=== PATIENT | male | born 1950 | race Caucasian/White ===

== ENCOUNTER 2016-12-03 08:55 | Outpatient (RCR) | payer OTHER ==
[~2016-12-03 08:55] MED LIST: AMLO5TAB2 PO; ASP81TEC PO; ASPI-266 PO; ATOR80TA PO; CETI10TA57 PO; CIPR500T78 PO; CLOP75TA PO; CLPD75T PO; HYOS0.1216 PO; LOSA25TA5 PO; Losartan Potassium PO; MULT-974 PO; PHEN200T27 PO; RAMI2.5C PO; RMP2.5C PO
== END 2017-01-14 10:02 | disposition home or self-care (01) ==
LOC: ONC 08:55
PROVIDERS: ATTEND Radiology Radiation Oncology
DX: C61 Malignant neoplasm of prostate (principal)
CPT/HCPCS: 99214

== ENCOUNTER 2017-02-06 15:53 | Emergency (ER) | payer BC ==
[~2017-02-06] VITALS: Ht 172.7 cm; Wt 81.6 kg
[2017-02-06] MEDS ORDERED: LIDOCAINE 2% VISCOUS 15 ML UDC PO ONE (16:15)
--- NOTE | 2017-02-06 16:15 | ED EENT ---
History of Present Illness General Chief Complaint: Dental Problems/Pain Stated Complaint: DENTAL PAIN History of Present Illness Time seen by provider: 16:08 Initial Comments Patient presents to ER with several days of right lower jaw pain from a tooth that he felt chip the filling off earlier. He has an appointment with his dentist on the but he needs to get one sooner. He is restarted some left over clindamycin he had for the same problem and is on the third dose. He has been using topical Orajel which helped a little as well as Tylenol and Ultram. He has not used any NSAIDs. He did use ice and that helped some as well. There is no bleeding, fever, chills, nausea, diarrhea, malaise. He is currently receiving radiation therapy for prostate cancer and being worked up for mild chronic kidney disease. Allergies and Home Medications Allergies Coded Allergies: Penicillins (Verified Adverse Reaction, Mild, ORAL THRUSH, 01/17/15) Oral thrush Uncoded Allergies: KNA (Allergy, Unknown, 01/17/15) Home Medications Aspirin 81 Mg Tablet.dr, 81 MG PO DAILY, (Reported) Atorvastatin Calcium 80 Mg Tablet, 80 MG PO HS for 30 Days Prescribed by: MERISSA YODER on 05/28/14 1137 Cetirizine Hcl 10 Mg Tablet, 10 MG PO DAILY, (Reported) Clindamycin HCl 150 Mg Capsule, 150 MG PO QID for 6 Days, #24 Ref 0 Prescribed by: SHAKILA RUFFIN on 02/06/17 1623 Clopidogrel Bisulfate 75 Mg Tablet, 75 MG PO DAILY, (Reported) Hydrocodone/Acetaminophen 1 Each Tablet, 1 EACH PO Q4H PRN for PAIN, #14 Ref 0 Prescribed by: SHAKILA RUFFIN on 02/06/17 1623 Multivitamin 1 Each Tablet, 1 EACH PO DAILY, (Reported) [Losartan Potassium] 25 MG TAB, 50 MG PO DAILY Prescribed by: ENRIQUE VERDUGO on 01/19/15 1926 Review of Systems Constitutional: No chills, No fever Eyes: Denies Blurred Vision, Denies Drainage Ears: Denies Pain, Denies Tinnitus Nose: denies congestion, denies epistaxis, denies pain Mouth: see HPI, denies loose teeth, pain, swelling, denies bloody discharge, denies clear discharge, denies purulent discharge, denies previous injury Throat: denies swelling, hoarse Respiratory: No cough, No wheezing Cardiovascular: No chest pain, No syncope Gastrointestinal: No abdominal pain, No constipation Skin: No pruritus, No rash Past Dmps[place]uk-Djrhpc-Hbsreo Hx Patient Social History Alcohol Use: Denies Use Recreational Drug Use: No Recent Foreign Travel: No Contact w/Someone Who Travel: No Immunizations Up To Date Tetanus Booster (TDap): More than 5yrs PED Vaccines UTD: No Surgeries HX Surgeries: Yes (HEART CATH, LEFT KNEE SURGERY, PENILE IMPLANT, LEFT SHOULDER SURGERY, ) Respiratory Hx Respiratory Disorders: No Cardiovascular Hx Cardiac Disorders: Yes Neurological Hx Neurological Disorders: No Reproductive System Hx Reproductive Disorders: No Sexually Transmitted Disease: No HIV/AIDS: No Genitourinary Hx Genitourinary Disorders: Yes (BLADDER TUMOR) Gastrointestinal Hx Gastrointestinal Disorders: No Musculoskeletal Hx Musculoskeletal Disorders: No Endocrine Hx Endocrine Disorders: No HEENT HX ENT Disorders: No Cancer Hx Cancer: No Cancer: Bladder Psychosocial Hx Psychiatric Problems: No Integumentary HX Skin/Integumentary Disorder: No Blood Transfusions Hx Blood Disorders: No Adverse Reaction to a Blood Tr: No Family Medical History Family Medial History: Family history: Cardiovascular disease 19 FATHER, Onset:Unknown Family history: Coronary thrombosis 19 FATHER, Onset:Unknown History of - respiratory disease 19 MOTHER, Onset:Unknown G8 SISTER, Onset:Unknown No Family History of: Abdominal aortic aneurysm Rogerio's disease Alcoholism Aphasia Cancer Cancer of colon Cataract Chest pain Congenital heart disease Congestive heart failure Cystic fibrosis Dementia Dysphagia Family history: Allergy Family history: Alzheimer's disease Family history: Arthritis Family history: Asthma Family history: Breast disease Family history: Diabetes mellitus Family history: Gastrointestinal disease Family history: Glaucoma Family history: Hypertension Family history: Osteoporosis Family history: Thyroid disorder Headache Hearing loss Heart disease Hereditary disease History of - anemia History of - disorder History of drug abuse Human immunodeficiency virus (HIV) seropositivity Hypercholesterolemia Infertile Kidney disease Malignant neoplasm of lung Myocardial infarction Parkinson's disease Prostate cancer Psychotic disorder Seizure disorder Stroke Tuberculosis Visual impairment Physical Exam Vital Signs Vital Sign - Last 12Hours 02/06/17 15:55 Temp 99.7 Pulse 62 Resp 24 B/P (MAP) 171/72 General Appearance: WD/WN, no apparent distress Eyes: bilateral eye EOMI, bilateral eye normal inspection Ears: bilateral ear TM normal, bilateral ear auricle normal, bilateral ear canal normal Nose: normal inspection, No sinus tenderness Mouth/Throat: dental tenderness (Right lower mandible), No excessive drooling, No foreign body, No maxillary swelling, No uvula swelling, No voice changes Neck: non-tender, full range of motion, supple, normal inspection Cardiovascular: normal peripheral pulses, regular rate, rhythm Respiratory: chest non-tender, lungs clear Gastrointestinal: normal bowel sounds, soft Neurologic/Psychiatric: kinesiology internship II-XII nml as tested, alert, oriented x 3 Skin: normal color, warm/dry Progress/Results/Core Measures Results/Orders My Orders Orders - SHAKILA RUFFIN Lidocaine 2% Viscous 15 Ml (Xylocaine Vi (02/06/17 16:15) Medications Given in ED Current Medications Medications Dose Ordered Sig/Markus Route Start Time Stop Time Status Last Admin Dose Admin Lidocaine HCl 5 ml ONCE ONCE PO 02/06/17 16:15 02/06/17 16:17 DC 02/06/17 16:22 5 ML Vital Signs/I&O Vital Sign - Last 12Hours 02/06/17 15:55 Temp 99.7 Pulse 62 Resp 24 B/P (MAP) 171/72 Progress Note : Time: 16:30 Progress Note The patient is already initiated clindamycin penicillin allergy this is probably appropriate so we will obtain another 6 days on top of a one-day he's done. Viscous lidocaine was applied which helped immensely with his pain as well as us short course of opiates were sent out. Discussed using ice and NSAIDs as well. He intends to get a sooner appointment with his dentist when he can. Departure Impression Impression: Primary Impression: Pain, dental Disposition: 01 HOME, SELF-CARE Condition: Improved Departure-Patient Inst. Decision time for Depature: 16:18 Referrals: CONSTANTINE YOUNG MD (PCP/Family) Primary Care Physician Patient Instructions: Fractured Tooth (DC) Add. Discharge Instructions: You're having dental pain from a cracked filling. He should make an attempt to get in with a dentist as soon as possible. He'll come every with clindamycin to be taken four times daily by mouth. While on the antibiotic you should also be on either probiotics or take Iranian yogurt with active culture twice daily. Use NSAIDs such as Advil or Aleve as necessary as well as ice packs. If you have bleeding you can apply a tea bag. Use the viscous lidocaine soaked cotton gauze to apply directly to the tooth that hurts as necessary. If you have fever nausea rash or other new symptoms or worsening pain you may return to the ER or go to your dentist or primary care physician as necessary. All discharge instructions reviewed with patient and/or family. Voiced understanding. Scripts Clindamycin HCl (Clindamycin HCl) 150 Mg Capsule 150 MG PO QID for 6 Days, #24 CAP 0 Refills Prov: SHAKILA RUFFIN 02/06/17 Hydrocodone/Acetaminophen (Hydrocodon -Acetaminophen 5-325) 1 Each Tablet 1 EACH PO Q4H Y for PAIN, #14 TAB 0 Refills Prov: SHAKILA RUFFIN 02/06/17 Copy Copies To 1: CONSTANTINE YOUNG MD, TITUS J Feb 06, 2017 16:15
[2017-02-06] MEDS ORDERED: HYDR-3812 PO (16:23)
[2017-02-06] MEDS ORDERED: CLIN150C17 PO ×2 (16:23→16:32)
[2017-02-06 16:31] VITALS: BP 171/72
--- OUTSIDE RECORDS SUMMARY | 2017-03-13 06:01 | XMS REPORT ---
Author Author CONSTANTINE YOUNG [facility] Address [address] [place] [address] Care Team Providers Care Wildland Fire Operations Specialist Name Role Phone CONSTANTINE YOUNG Unavailable PROBLEMS Type Condition ICD9-CM Code [id number] Code Onset Dates Condition Status SNOMED Code Problem Chronic kidney disease, unspecified stage N18.9 Active 954554979 Problem Polyneuropathy associated with underlying disease G63 Active 220391303 Problem Hypertension I10 Active 26589888 Problem Hyperlipidemia, unspecified hyperlipidemia type E78.5 Active 25317164 Problem Back pain M54.9 Active 231172702 ALLERGIES Unknown Allergies SOCIAL HISTORY No smoking Hx information available PLAN OF CARE VITAL SIGNS MEDICATIONS Unknown Medications RESULTS No Results PROCEDURES No Known procedures IMMUNIZATIONS No Known Immunizations
--- OUTSIDE RECORDS SUMMARY | 2017-03-13 06:01 | XMS REPORT ---
Author Author CONSTANTINE YOUNG [facility] [employer] Address Unknown Phone Unavailable Care Team Providers Care Basket Bottom Machine Operator Name Role Phone CONSTANTINE YOUNG CP Unavailable Allergies No Known Allergies Problems Problem Type Condition Code Onset Dates Condition Status Problem Hyperlipidemia, unspecified hyperlipidemia type E78.5 Active Problem Back pain M54.9 Active Problem Polyneuropathy associated with underlying disease G63 Active Problem Hypertension I10 Active Medications Medication Code System Code Instructions Start Date End Date Status Dosage Zetia [facility] [address]-72 10 mg Orally Once a day Jun 21, 2016 1 tablet Results No Known Results Summary Purpose eClinicalWorks Submission
--- OUTSIDE RECORDS SUMMARY | 2017-03-13 06:01 | XMS REPORT ---
Author Author CONSTANTINE YOUNG [facility] Address [address] [place] [address] Care Team Providers Care Ornamental Painter Name Role Phone CONSTANTINE YOUNG Unavailable PROBLEMS Type Condition ICD9-CM Code [id number] Code Onset Dates Condition Status SNOMED Code Problem Chronic kidney disease, unspecified stage N18.9 Active 614377170 Problem Polyneuropathy associated with underlying disease G63 Active 944785930 Problem Hypertension I10 Active 70625614 Problem Hyperlipidemia, unspecified hyperlipidemia type E78.5 Active 19783205 Problem Back pain M54.9 Active 898540572 ALLERGIES Unknown Allergies SOCIAL HISTORY No smoking Hx information available PLAN OF CARE VITAL SIGNS MEDICATIONS Medication Instructions Dosage Frequency Start Date End Date Duration Status Clopidogrel Bisulfate 75 MG Orally Once a day 1 tablet 24h 6 days Active Gabapentin 300 MG Orally 2 times a day 1 capsule 12h 6 days Active Valsartan-Hydrochlorothiazide 160-12.5 MG Orally Once a day 1 tablet 24h 6 days Active RESULTS No Results PROCEDURES No Known procedures IMMUNIZATIONS No Known Immunizations
--- OUTSIDE RECORDS SUMMARY | 2017-03-13 06:02 | XMS REPORT ---
Author Author CONSTANTINE YOUNG [facility] Address [address] [place] [address] Care Team Providers Care Data Center Manager Name Role Phone CONSTANTINE YOUNG Unavailable PROBLEMS Type Condition ICD9-CM Code SYN94-LM Code Onset Dates Condition Status SNOMED Code Problem Chronic kidney disease, unspecified stage N18.9 Active 375729016 Problem Polyneuropathy associated with underlying disease G63 Active 423442756 Problem Hypertension I10 Active 19870585 Problem Hyperlipidemia, unspecified hyperlipidemia type E78.5 Active 33386366 Problem Back pain M54.9 Active 548040885 ALLERGIES Unknown Allergies SOCIAL HISTORY No smoking Hx information available PLAN OF CARE VITAL SIGNS MEDICATIONS Unknown Medications RESULTS No Results PROCEDURES No Known procedures IMMUNIZATIONS No Known Immunizations
--- OUTSIDE RECORDS SUMMARY | 2017-03-13 06:02 | XMS REPORT ---
Author Author CONSTANTINE YOUNG [facility] Address [address] [place] [address] Care Team Providers Care Veterinary Poultry Inspector Name Role Phone CONSTANTINE YOUNG Unavailable PROBLEMS Type Condition ICD9-CM Code [id number] Code Onset Dates Condition Status SNOMED Code Problem Chronic kidney disease, unspecified stage N18.9 Active 216668893 Problem Polyneuropathy associated with underlying disease G63 Active 874419426 Problem Hypertension I10 Active 72466589 Problem Hyperlipidemia, unspecified hyperlipidemia type E78.5 Active 93288928 Problem Back pain M54.9 Active 195872771 ALLERGIES Unknown Allergies SOCIAL HISTORY No smoking Hx information available PLAN OF CARE VITAL SIGNS MEDICATIONS Unknown Medications RESULTS No Results PROCEDURES No Known procedures IMMUNIZATIONS No Known Immunizations
--- OUTSIDE RECORDS SUMMARY | 2017-03-13 06:02 | XMS REPORT ---
Author Author CONSTANTINE YOUNG [facility] Address [address] [place] [address] Care Team Providers Care Stiff Leg Derrick Operator Name Role Phone CONSTANTINE YOUNG Unavailable PROBLEMS Type Condition ICD9-CM Code [id number] Code Onset Dates Condition Status SNOMED Code Problem Chronic kidney disease, unspecified stage N18.9 Active 277653475 Problem Polyneuropathy associated with underlying disease G63 Active 086788274 Problem Hypertension I10 Active 32748635 Assessment Chronic kidney disease, unspecified stage N18.9 Jul, Active 685493167 Problem Hyperlipidemia, unspecified hyperlipidemia type E78.5 Active 13799730 Problem Back pain M54.9 Active 283394616 ALLERGIES Unknown Allergies SOCIAL HISTORY No smoking Hx information available PLAN OF CARE VITAL SIGNS MEDICATIONS Unknown Medications RESULTS No Results PROCEDURES No Known procedures IMMUNIZATIONS No Known Immunizations
--- OUTSIDE RECORDS SUMMARY | 2017-03-13 06:02 | XMS REPORT ---
Author Author CONSTANTINE YOUNG [facility] e[employer] Address Unknown Phone Unavailable Care Team Providers Care Procurement Director Name Role Phone CONSTANTINE YOUNG CP Unavailable Allergies, Adverse Reactions, Alerts Substance Reaction Event Type Penicillin V Potassium hives Drug Allergy Problems Problem Type Condition Code Onset Dates Condition Status Problem Hyperlipidemia, unspecified hyperlipidemia type E78.5 Active Problem Back pain M54.9 Active Problem Polyneuropathy associated with underlying disease G63 Active Assessment Polyneuropathy associated with underlying disease G63 Active Assessment Hyperlipidemia, unspecified hyperlipidemia type E78.5 Active Problem Hypertension I10 Active Assessment Back pain M54.9 Active Medications Medication Code System Code Instructions Start Date End Date Status Dosage Valsartan-Hydrochlorothiazide [facility] 72064598348 160-12.5 MG Orally Once a day 1 tablet Tramadol HCl [facility] [address]-47 50 mg Orally every 6 hrs, prn pain Jun 15, 2016 1-2 Vitamin D-3 [facility] [address]-58 [address] Orally not defined Aspirin Adult Low Dose [facility] [address]-54 81 MG Orally Once a day 1 tablet Probiotic [facility] [address] Orally not defined Clopidogrel Bisulfate [facility] [address]-75 75 MG Orally Once a day 1 tablet Gabapentin [facility] [address]-18 300 MG Orally 2 times a day 1 capsule Procedures Procedure Coding System Code Date COMPREHEN METABOLIC PANEL CPT-4 06351 Jun 15, 2016 VENIPUNCT, ROUTINE* CPT-4 38260 Jun 15, 2016 LIPID PANEL CPT-4 41694 Jun 15, 2016 Office Visit, Est Pt., Level 3 CPT-4 00459 Jun 15, 2016 Vital Signs Date/Time: Jun 15, 2016 Cardiac Monitoring Heart Rate 64 bpm Weight 189.2 lbs Height 68 in BMI 28.76 Index Blood Pressure Diastolic 76 mmHg Blood Pressure Systolic 132 mmHg Results No Known Results Summary Purpose eClinicalWorks Submission
--- OUTSIDE RECORDS SUMMARY | 2017-03-13 06:02 | XMS REPORT ---
Author CALEB Moura [facility] eClinical[employer] Address Unknown Phone Unavailable Care Team Providers Care Tumbler Tender Name Role Phone CALEB HAINES CP Unavailable Allergies, Adverse Reactions, Alerts Substance Reaction Event Type Penicillin V Potassium hives Drug Allergy Problems Problem Type Condition Code Onset Dates Condition Status Problem Polyneuropathy associated with underlying disease G63 Active Problem Hyperlipidemia, unspecified hyperlipidemia type E78.5 Active Problem Chronic kidney disease, unspecified stage N18.9 Active Assessment Dental examination Z01.20 Active Problem Back pain M54.9 Active Problem Hypertension I10 Active Medications No Known Medications Procedures Procedure Coding System Code Date BITEWINGS - FOUR FILMS CPT-4 D0274 Jul 26, 2016 PANORAMIC FILM SEE ALSO CODE 29448 CPT-4 D0330 Jul 26, 2016 COMP ORAL EVALUATION - NEW/EST PT CPT-4 D0150 Jul 26, 2016 Vital Signs Date/Time: Jul 26, 2016 Blood Pressure Diastolic 82 mmHg Blood Pressure Systolic 147 mmHg Height 68 in Results No Known Results Summary Purpose eClinicalWorks Submission
--- OUTSIDE RECORDS SUMMARY | 2017-03-13 06:02 | XMS REPORT ---
Author Author CONSTANTINE YOUNG [facility] eClinicalWorks Address Unknown Phone Unavailable Care Team Providers Care Labor Commissioner Name Role Phone CONSTANTINE YOUNG CP Unavailable Allergies No Known Allergies Problems Problem Type Condition Code Onset Dates Condition Status Problem Hyperlipidemia, unspecified hyperlipidemia type E78.5 Active Problem Back pain M54.9 Active Problem Polyneuropathy associated with underlying disease G63 Active Problem Hypertension I10 Active Medications Medication Code System Code Instructions Start Date End Date Status Dosage Gabapentin [facility] [address]-01 300 MG Orally 2 times a day 1 capsule Results No Known Results Summary Purpose eClinicalWorks Submission
--- OUTSIDE RECORDS SUMMARY | 2017-03-13 06:02 | XMS REPORT | Continuity of Care Document ---
Author Author [facility] Organization [facility] Address Unknown Phone Unavailable Allergies Active Description Code Type Severity Reaction Onset Reported/Identified Relationship to Patient Clinical Status Yes Penicillins [id number] Drug Allergy Mild N/A 05/24/2014 Yes Penicillins [id number] Drug Allergy Mild ORAL THRUSH 01/17/2015 Yes KNA KNA Unknown N/A 01/17/2015 Medications Problems Date Dx Coded Attending Type Code Diagnosis Diagnosed By 09/29/1001 JAMAL PARMAR, JING Treadwell Ot C61 MALIGNANT NEOPLASM OF PROSTATE 05/28/2014 Estelita FERNANDO MD Ot 272.4 HYPERLIPIDEMIA NEC/NOS 05/28/2014 Estelita FERNANDO MD Ot 305.1 TOBACCO USE DISORDER 05/28/2014 Estelita FERNANDO MD Ot 401.9 HYPERTENSION NOS 05/28/2014 Estelita FERNANDO MD Ot 411.1 INTERMED CORONARY SYND 05/28/2014 Estelita FERNANDO MD Ot 414.01 CORONARY ATHEROSCLEROSIS OF CHEESH-NA CORON 05/28/2014 Estelita FERNANDO MD Ot 427.89 CARDIAC DYSRHYTHMIAS NEC 05/28/2014 Estelita FERNANDO MD Ot 440.1 RENAL ARTERY ATHEROSCLER 05/28/2014 Estelita FERNANDO MD Ot 440.21 ATHEROSCL CHEESH-NA ARTER EXTREM W INTERMIT 05/28/2014 Estelita FERNANDO MD Ot 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 05/28/2014 Estelita FERNANDO MD Ot 596.9 BLADDER DISORDER NOS 05/28/2014 Estelita FERNANDO MD Ot 789.06 ABDOMINAL PAIN, EPIGASTRIC 07/03/2014 LUZ HUMPHRIES MD Ot 239.4 BLADDER NEOPLASM NOS 07/03/2014 LUZ HUMPHRIES MD Ot V74.8 SCREEN-BACTERIAL DIS NEC 09/17/2014 LUZ HUMPHRIES MD Ot 239.4 09/17/2014 LUZ HUMPHRIES MD Ot V72.84 01/19/2015 ENRIQUE VERDUGO MD Ot 272.4 01/19/2015 ENRIQUE VERDUGO MD Ot 305.1 01/19/2015 ENRIQUE VERDUGO MD Ot 401.9 01/19/2015 ENRIQUE VERDUGO MD Ot 444.81 01/19/2015 ENRIQUE VERDUGO MD Ot 780.57 01/19/2015 ENRIQUE VERDUGO MD Ot 272.1 PURE HYPERGLYCERIDEMIA 01/19/2015 ENRIQUE VERDUGO MD Ot 272.4 HYPERLIPIDEMIA NEC/NOS 01/19/2015 ENRIQUE VERDUGO MD Ot 288.09 OTHER NEUTROPENIA 01/19/2015 ENRIQUE VERDUGO MD Ot 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 01/19/2015 ENRIQUE VERDUGO MD Ot 305.1 TOBACCO USE DISORDER 01/19/2015 ENRIQUE VERDUGO MD Ot 401.9 01/19/2015 ENRIQUE VERDUGO MD Ot 403.90 HYPTNSV CHR KID DIS, UNSPEC, W CHR KD ST 01/19/2015 ENRIQUE VERDUGO MD Ot 443.9 PERIPH VASCULAR DIS NOS 01/19/2015 ENRIQUE VERDUGO MD Ot 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 01/19/2015 ENRIQUE VERDUGO MD Ot 530.81 ESOPHAGEAL REFLUX 01/19/2015 ENRIQUE VERDUGO MD Ot 535.50 UNSP GASTRITIS GASTRODUODENITIS W/O ME 01/19/2015 ENRIQUE VERDUGO MD Ot 585.9 CHRONIC KIDNEY DISEASE, UNSPECIFIED 01/19/2015 ENRIQUE VERDUGO MD Ot 724.5 BACKACHE NOS 01/19/2015 ENRIQUE VERDUGO MD Ot 780.57 UNSPECIFIED SLEEP APNEA 02/27/2015 ENRIQUE VERDUGO MD Ot 327.23 OBSTRUCTIVE SLEEP APNEA (ADULT) ( PEDIATR 04/30/2015 LUZ HUMPHRIES MD Ot 239.4 04/30/2015 LUZ HUMPHRIES MD Ot V72.84 05/27/2015 LUZ HUMPHRIES MD Ot 239.4 05/27/2015 KRISTEL PARMAR, LUZ A Ot V72.84 08/26/2015 KRISTEL PARMAR, LUZ A Ot 239.4 08/26/2015 KRISTEL PARMAR, LUZ A Ot V72.84 09/12/2015 KRISTEL PARMAR, LUZ A Ot 239.4 09/12/2015 KRISTEL PARMAR, LUZ Murcia Ot V72.84 09/30/2015 TONE PARMAR FACC, ALI FACP CCDS Ot E78.4 09/30/2015 TONE PARMAR FACC, ALI FACP CCDS Ot G47.33 09/30/2015 TONE PARMAR FACC, ALI FACP CCDS Ot I70.1 09/30/2015 TONE PARMAR FACC, ALI FACP CCDS Ot I70.213 09/30/2015 TONE PARMAR FACC, ALI FACP CCDS Ot R06.09 09/30/2015 TONE PARMAR FACC, ALI FACP CCDS Ot Z72.0 09/30/2015 KRISTEL PARMAR, LUZ Murcia Ot 239.4 09/30/2015 KRISTEL PARMAR, LUZ Murcia Ot V72.84 09/30/2015 TONE PARMAR FACC, ALI FACP CCDS Ot E78.4 09/30/2015 TONE PARMAR FACC, ALI FACP CCDS Ot G47.33 09/30/2015 TONE PARMAR FACC, ALI FACP CCDS Ot I70.1 09/30/2015 TONE PARMAR FACC, ALI FACP CCDS Ot I70.213 09/30/2015 TONE PARMAR FACC, ALI FACP CCDS Ot R06.09 09/30/2015 TONE PARMAR FACC, ALI FACP CCDS Ot Z72.0 10/30/2015 TONE PARMAR FACC, ALI FACP CCDS Ot E78.4 10/30/2015 TONE PARMAR FACC, ALI FACP CCDS Ot G47.33 10/30/2015 TONE PARMAR FACC, ALI FACP CCDS Ot I70.1 10/30/2015 TONE PARMAR FACC, ALI FACP CCDS Ot I70.213 10/30/2015 TONE PARMAR FACC, ALI FACP CCDS Ot R06.09 10/30/2015 TONE PARMAR FACC, ALI FACP CCDS Ot Z72.0 08/16/2016 JENNY PARMAR, GUSTAVO S Ot E87.2 ACIDOSIS 08/16/2016 JENNY PARMAR, JOSEMED S Ot I12.9 HYPERTENSIVE CHRONIC KIDNEY DISEASE W ST 08/16/2016 JENNY PARMAR, JOSEMED S Ot N18.3 CHRONIC KIDNEY DISEASE, STAGE 3 ( MODERAT 10/15/2016 JENNY PARMAR, GUSTAVO S Ot E87.2 ACIDOSIS 10/15/2016 JENNY PARMAR, GUSTAVO S Ot I12.9 HYPERTENSIVE CHRONIC KIDNEY DISEASE W ST 10/15/2016 JENNY PARMAR, JOSEMED S Ot N18.3 CHRONIC KIDNEY DISEASE, STAGE 3 ( MODERAT 10/15/2016 KRISTEL PARMAR, LUZ Murcia Ot 239.4 BLADDER NEOPLASM NOS 10/15/2016 KRISTEL PARMAR, LUZ Murcia Ot V72.84 EXAM PRE-OPERATIVE NOS 10/15/2016 TONE PARMAR FACC, ALI FACP CCDS Ot E78.4 OTHER HYPERLIPIDEMIA 10/15/2016 TONE PARMAR FACC, ALI FACP CCDS Ot G47.33 OBSTRUCTIVE SLEEP APNEA (ADULT) (PEDIATR 10/15/2016 TONE PARMAR FACC, ALI FACP CCDS Ot I70.1 ATHEROSCLEROSIS OF RENAL ARTERY 10/15/2016 TONE PARMAR FACC, ALI FACP CCDS Ot I70.213 ATHSCL CHEESH-NA ARTERIES OF EXTRM W INTRMT 10/15/2016 TONE PARMAR FACC, ALI FACP CCDS Ot R06.09 OTHER FORMS OF DYSPNEA 10/15/2016 TONE PARMAR FACC, ALI FACP CCDS Ot Z72.0 TOBACCO USE 10/15/2016 GUSTAVO ALVARADO MD S Ot E87.2 ACIDOSIS 10/15/2016 JENNY PARMAR, GUSTAVO S Ot I12.9 HYPERTENSIVE CHRONIC KIDNEY DISEASE W ST 10/15/2016 JENNY PARMAR, GUSTAVO S Ot N18.3 CHRONIC KIDNEY DISEASE, STAGE 3 ( MODERAT 10/27/2016 KRISTEL PARMAR, LUZ Murcia Ot C61 MALIGNANT NEOPLASM OF PROSTATE 10/27/2016 LUZ HUMPHRIES MD Ot C61 MALIGNANT NEOPLASM OF PROSTATE 11/16/2016 LUZ HUMPHRIES MD Ot C61 MALIGNANT NEOPLASM OF PROSTATE 12/03/2016 LUZ HUMPHRIES MD Ot 239.4 BLADDER NEOPLASM NOS 12/03/2016 LUZ HUMPHRIES MD Ot V72.84 EXAM PRE-OPERATIVE NOS 12/03/2016 TONE PARMAR FACC, ALI FACP CCDS Ot E78.4 OTHER HYPERLIPIDEMIA 12/03/2016 TONE PARMAR FACC, ALI FACP CCDS Ot G47.33 OBSTRUCTIVE SLEEP APNEA (ADULT) (PEDIATR 12/03/2016 TONE PARMAR FACC, ALI FACP CCDS Ot I70.1 ATHEROSCLEROSIS OF RENAL ARTERY 12/03/2016 TONE PARMAR FACC, ALI FACP CCDS Ot I70.213 ATHSCL CHEESH-NA ARTERIES OF EXTRM W INTRMT 12/03/2016 TONE PARMAR FACC, ALI FACP CCDS Ot R06.09 OTHER FORMS OF DYSPNEA 12/03/2016 TONE PARMAR FACC, ALI FACP CCDS Ot Z72.0 TOBACCO USE 12/03/2016 JENNY PARMAR, AHMED S Ot E87.2 ACIDOSIS 12/03/2016 JENNY PARMAR, AHMED S Ot I12.9 HYPERTENSIVE CHRONIC KIDNEY DISEASE W ST 12/03/2016 JENNY PARMAR, AHMED S Ot N18.3 CHRONIC KIDNEY DISEASE, STAGE 3 ( MODERAT 12/03/2016 KRISTEL PARMAR, LUZ Murcia Ot C61 MALIGNANT NEOPLASM OF PROSTATE 01/14/2017 JAMAL PARMAR, JING E Ot C61 MALIGNANT NEOPLASM OF PROSTATE 01/14/2017 LUZ HUMPHRIES MD Ot 239.4 BLADDER NEOPLASM NOS 01/14/2017 LUZ HUMPHRIES MD Ot V72.84 EXAM PRE-OPERATIVE NOS 01/14/2017 TONE PARMAR FACC, CARIDAD FACP CCDS Ot E78.4 OTHER HYPERLIPIDEMIA 01/14/2017 TONE PARMAR FACC, ALI FACP CCDS Ot G47.33 OBSTRUCTIVE SLEEP APNEA (ADULT) (PEDIATR 01/14/2017 TONE PARMAR FACC, ALI FACP CCDS Ot I70.1 ATHEROSCLEROSIS OF RENAL ARTERY 01/14/2017 TONE PARMAR FACC, ALI FACP CCDS Ot I70.213 ATHSCL CHEESH-NA ARTERIES OF EXTRM W INTRMT 01/14/2017 TONE PARMAR FACC, ALI FACP CCDS Ot R06.09 OTHER FORMS OF DYSPNEA 01/14/2017 TONE PARMAR FACC, ALI FACP CCDS Ot Z72.0 TOBACCO USE 01/14/2017 GUSTAVO ALVARADO MD Ot E87.2 ACIDOSIS 01/14/2017 GUSTAVO ALVARADO MD Ot I12.9 HYPERTENSIVE CHRONIC KIDNEY DISEASE W ST 01/14/2017 GUSTAVO ALVARADO MD Ot N18.3 CHRONIC KIDNEY DISEASE, STAGE 3 ( MODERAT 01/14/2017 LUZ HUMPHRIES MD Ot C61 MALIGNANT NEOPLASM OF PROSTATE 01/14/2017 JING BERRY MD Ot C61 MALIGNANT NEOPLASM OF PROSTATE 01/18/2017 JING BERRY MD Ot C61 MALIGNANT NEOPLASM OF PROSTATE 01/19/2017 JING BERRY MD Ot C61 MALIGNANT NEOPLASM OF PROSTATE 02/06/2017 LUZ HUMPHRIES MD Ot 239.4 BLADDER NEOPLASM NOS 02/06/2017 LUZ HUMPHRIES MD Ot V72.84 EXAM PRE-OPERATIVE NOS 02/06/2017 TONE PARMAR FACC, ALI FACP CCDS Ot E78.4 OTHER HYPERLIPIDEMIA 02/06/2017 TONE PARMAR FACC, ALI FACP CCDS Ot G47.33 OBSTRUCTIVE SLEEP APNEA (ADULT) (PEDIATR 02/06/2017 TONE PARMAR FACC, ALI FACP CCDS Ot I70.1 ATHEROSCLEROSIS OF RENAL ARTERY 02/06/2017 TONE PARMAR FACC, ALI FACP CCDS Ot I70.213 ATHSCL CHEESH-NA ARTERIES OF EXTRM W INTRMT 02/06/2017 TONE PARMAR FACC, ALI FACP CCDS Ot R06.09 OTHER FORMS OF DYSPNEA 02/06/2017 TONE PARMAR FACC, ALI FACP CCDS Ot Z72.0 TOBACCO USE 02/06/2017 GUSTAVO ALVARADO MD Ot E87.2 ACIDOSIS 02/06/2017 GUSTAVO ALVARADO MD Ot I12.9 HYPERTENSIVE CHRONIC KIDNEY DISEASE W ST 02/06/2017 GUSTAVO ALVARADO MD Ot N18.3 CHRONIC KIDNEY DISEASE, STAGE 3 ( MODERAT 02/06/2017 LUZ HUMPHRIES MD Ot C61 MALIGNANT NEOPLASM OF PROSTATE 02/06/2017 JING BERRY MD Ot C61 MALIGNANT NEOPLASM OF PROSTATE 02/06/2017 LALY PARMAR, SHAKILA Martin Ot K08.9 DISORDER OF TEETH AND SUPPORTING STRUCTU 02/06/2017 SHAKILA RUFFIN MD Ot Z79.82 RETIREMENT (CURRENT) USE OF ASPIRIN 02/06/2017 SHAKILA RUFFIN MD Ot Z79.899 OTHER RETIREMENT (CURRENT) DRUG THERAPY 03/08/2017 JING BERRY MD, Ot C61 MALIGNANT NEOPLASM OF PROSTATE 03/08/2017 LUZ HUMPHRIES MD Ot 239.4 BLADDER NEOPLASM NOS 03/08/2017 LUZ HUMPHRIES MD, Ot V72.84 EXAM PRE-OPERATIVE NOS 03/08/2017 TONE PARMAR FACC, ALI FACP CCDS Ot E78.4 OTHER HYPERLIPIDEMIA 03/08/2017 OTNE PARMAR FACC, ALI FACP CCDS Ot G47.33 OBSTRUCTIVE SLEEP APNEA (ADULT) (PEDIATR 03/08/2017 TONE PARMAR FACC, ALI FACP CCDS Ot I70.1 ATHEROSCLEROSIS OF RENAL ARTERY 03/08/2017 TONE PARMAR FACC, ALI FACP CCDS Ot I70.213 ATHSCL CHEESH-NA ARTERIES OF EXTRM W INTRMT 03/08/2017 TONE PARMAR FACC, ALI FACP CCDS Ot R06.09 OTHER FORMS OF DYSPNEA 03/08/2017 TONE PARMAR FACC, ALI FACP CCDS Ot Z72.0 TOBACCO USE 03/08/2017 GUSTAVO ALVARADO MD Ot E87.2 ACIDOSIS 03/08/2017 GUSTAVO ALVARADO MD Ot I12.9 HYPERTENSIVE CHRONIC KIDNEY DISEASE W ST 03/08/2017 GUSTAVO ALVARADO MD Ot N18.3 CHRONIC KIDNEY DISEASE, STAGE 3 ( MODERAT 03/08/2017 LUZ HUMPHRIES MD, Ot C61 MALIGNANT NEOPLASM OF PROSTATE 03/08/2017 JING BERRY MD, Ot C61 MALIGNANT NEOPLASM OF PROSTATE 03/09/2017 GUSTAVO ALVARADO MD Ot E87.2 ACIDOSIS 03/09/2017 GUSTAVO ALVARADO MD Ot I12.9 HYPERTENSIVE CHRONIC KIDNEY DISEASE W ST 03/09/2017 GUSTAVO ALVARADO MD Ot N18.3 CHRONIC KIDNEY DISEASE, STAGE 3 ( MODERAT 03/09/2017 LUZ HUMPHRIES MD, Ot C61 MALIGNANT NEOPLASM OF PROSTATE Procedures Code Description Performed By Performed On 00.40 PROCEDURE ON SINGLE VESSEL 01/16/2015 00.46 INSERTION OF TWO VASCULAR STENTS 01/16/2015 00.55 INSEJ OF DRUG-ELUTING STENT(S) OF OTH PE 01/16/2015 88.47 CONTR ABD ARTERIOGRM NEC 01/16/2015 Results Test Result Range [id number] - 10/26/16 11:00 Serum or plasma urea nitrogen measurement (mass/volume) 24 mg/dL 7-18 Serum or plasma creatinine measurement (mass/volume) 1.72 mg /dL 0.60-1.30 Serum or plasma urea nitrogen/creatinine mass ratio 14 NRG Serum or plasma creatinine measurement with calculation of estimated glomerular filtration rate 40 NRG Encounters ACCT No. Visit Date/Time Discharge Status Pt. Type Provider Facility Loc./Unit Complaint [id number] 02/06/2017 15:54:00 2016 16:31:00 DIS Emergency SHAKILA RUFFIN MD [facility] ER DENTAL PAIN [id number] 12/03/2016 08:55:00 2016 10:02:00 DIS Outpatient JING BERRY MD [facility] ONC [id number] 09/12/2015 07:49:00 2014 23:59:59 CLS Outpatient TONE PARMAR FACC, CARIDAD ARCHER CCDS [facility] CARD PAD,DYSPNEA,RENAL ARTERIAL STENOSIS [id number] 02/26/2015 19:57:00 2014 06:15:00 DIS Outpatient ENRIQUE VERDUGO MD [facility] SLEEP OBSERVED APNEAS SNORING OBSTRUCTIVE SLEEP APNEA [id number] 01/16/2015 17:00:00 2014 21:27:00 DIS Inpatient ENRIQUE VERDUGO MD [facility] CSD CLAUDICATION,PVD,HLP [id number] 07/03/2014 07:58:00 2013 11:55:00 DIS Outpatient LUZ HUMPHRIES MD [facility] SDC BLADDER TUMORS [id number] 06/26/2014 08:10:00 2013 23:59:59 CLS Outpatient LUZ HUMPHRIES MD [facility] PREOP BLADDER TUMORS [id number] 05/24/2014 21:37:00 2013 13:50:00 DIS Outpatient ABDULLAHI PARMAR, Estelita ZAPATA [facility] CATH CHEST PAIN; HTN [id number] 03/11/2017 08:48:00 ACT Outpatient JAMAL PARMAR, JING Treadwell [facility] ONC [id number] 10/26/2016 10:32:00 ACT Outpatient KRISTEL PARMAR, LUZ Murcia [facility] CARD PROSTATE CA; BUN,CREATININE [id number] 08/13/2016 07:18:00 ACT Outpatient JENNY PARMAR , GUSTAVO Patton [facility] RAD HTN,CHRONIC KIDNEY DISEASE STAGE 3 [id number] 09/17/2014 10:08:00 Document Registration
--- OUTSIDE RECORDS SUMMARY | 2017-03-13 06:02 | XMS REPORT ---
Author Author CONSTANTINE YOUNG [facility] e[employer] Address Unknown Phone Unavailable Care Team Providers Care Commercial Front Load Driver Name Role Phone CONSTANTINE YOUNG CP Unavailable Allergies No Known Allergies Problems Problem Type Condition Code Onset Dates Condition Status Problem Hyperlipidemia, unspecified hyperlipidemia type E78.5 Active Problem Back pain M54.9 Active Problem Polyneuropathy associated with underlying disease G63 Active Problem Hypertension I10 Active Medications No Known Medications Results No Known Results Summary Purpose eClinicalWorks Submission
--- OUTSIDE RECORDS SUMMARY | 2017-03-13 06:02 | XMS REPORT ---
Author Author CONSTANTINE YOUNG [facility] e[employer] Address Unknown Phone Unavailable Care Team Providers Care Manager Behavioral Name Role Phone CONSTANTINE YOUNG CP Unavailable Allergies No Known Allergies Problems Problem Type Condition Code Onset Dates Condition Status Problem Polyneuropathy associated with underlying disease G63 Active Problem Hyperlipidemia, unspecified hyperlipidemia type E78.5 Active Problem Chronic kidney disease, unspecified stage N18.9 Active Assessment Back pain M54.9 Active Problem Back pain M54.9 Active Problem Hypertension I10 Active Medications Medication Code System Code Instructions Start Date End Date Status Dosage Gabapentin [facility] [id number] 300 MG Orally 2 times a day 1 capsule Results No Known Results Summary Purpose eClinicalWorks Submission
== END 2017-02-06 16:31 | disposition home or self-care (01) ==
LOC: EDUNIT# 15:53 → ER 15:54
DX: K08.9 Disorder of teeth and supporting structures, unspecified (principal); Z79.82 Long term (current) use of aspirin; Z79.899 Other long term (current) drug therapy
CPT/HCPCS: 99282

== ENCOUNTER 2017-03-29 08:58 | Outpatient (RCR) | payer BC ==
--- OUTSIDE RECORDS SUMMARY | 2017-01-14 10:09 | XMS REPORT | Continuity of Care Document ---
Author Author [facility] Organization [facility] Address Unknown Phone Unavailable Care Team Providers Care Wire Bender Name Role Phone CONSTANTINE YOUNG MD PCP Insurance Providers Payer Name Policy Number Subscriber Name Relationship Self Pay Marquise Bernal 18 Self / Same As Patient Advance Directives Directive Response Recorded Date/Time Advance Directives No 01/16/15 7:06am Health Care Power of Yarn Winder No 01/16/15 7:06am Organ Donor No 01/16/15 7:06am Problems Active Problems Medical Problem Onset Date Status Abdominal pain Unknown Acute Chest pain Unknown Acute Hypertension Unknown Acute Peripheral vascular disease Unknown Chronic Peripheral vascular disease Unknown Acute Unstable angina Unknown Resolved Medications Current Home Medications Medication Dose Units Route Directions Days/Qty Instructions Start Date Cetirizine Hcl 10 Mg 10 Mg Oral Daily 05/24/14 Multivitamin 1 Each 1 Each Oral Daily 05/24/14 Atorvastatin Calcium 80 Mg 80 Mg Oral Bedtime 30 Days 05/28/14 Clopidogrel Bisulfate 75 Mg 75 Mg Oral Daily 01/16/15 Aspirin 81 Mg 81 Mg Oral Daily 01/16/15 [Losartan Potassium] 25 Mg 50 Mg Oral Daily 01/19/15 Past Home Medications Medication Directions Ordered Status Aspirin 81 Mg Tabec, 81 Mg Oral Daily 05/28/14 Discontinued Clopidogrel Bisulfate 75 Mg Tab, 75 Mg Oral Daily 05/28/14 Discontinued Ramipril 2.5 Mg Cap, 10 Mg Oral Daily 05/28/14 Discontinued Amlodipine Besylate (Norvasc 5 Mg) 5 Mg Tablet, 5 Mg Oral Daily 05/28/14 Discontinued Ramipril 2.5 Mg Capsule, 7.5 Mg Oral Daily 06/26/14 Discontinued Ciprofloxacin Hcl 500 Mg Tablet, 500 Mg Oral Twice A Day 07/03/14 Discontinued Phenazopyridine Hcl 200 Mg Tablet, 1 Each Oral Three Times A Day And Prn 01/11 Discontinued Hyoscyamine Sulfate 0.125 Mg Tab, 1-2 Each Oral Q4hr Prn 07/03/14 Discontinued Losartan Potassium 25 Mg Tablet, 25 Mg Oral Daily 01/16/15 Discontinued Social History Social History Problem Response Recorded Date/Time Alcohol Use Regular Use 01/18/2015 12:34pm Recreational Drug Use Y SMOKE 2 PACK PER DAY 01/18/2015 12:34pm Recent Foreign Travel No 05/24/2014 10:15pm Recent Infectious Disease Exposure No 05/24/2014 10:15pm Hospitalization with Isolation Denies 07/03/2014 2:04pm Sexually Transmitted Disease No 01/18/2015 12:34pm HIV/AIDS No 01/18/2015 12:34pm Sexually Transmitted Disease No 01/18/2015 12:34pm Hospitalization with Isolation Denies 07/03/2014 2:04pm Hx Sexually Transmitted Disorders No 07/03/2014 8:58am Hospital Discharge Instructions No hospital discharge instructions. Plan of Care Prescriptions See Medication Section Functional Status No functional status results. Allergies, Adverse Reactions, Alerts Allergen Type Severity Reaction Status Last Updated Penicillins ([id number]) Adverse Reaction Mild ORAL THRUSH Active 01/17/15 KNA Allergy Unknown Active 01/17/15 Immunizations No immunization records. Vital Signs No known vital signs results. Results No known relevant diagnostic tests, laboratory data and/or discharge summary. Procedures No known history of procedures. Encounters Encounter Location Arrival/Admit Date Discharge/Depart Date Attending Provider Discharged Recurring [facility] 12/03/16 8:55am 10:02am JING BERRY MD
[~2017-03-29 08:58] MED LIST changes: +CLIN150C17 PO; +HYDR-3812 PO
== END 2017-04-14 | disposition home or self-care (01) ==
LOC: ONC 08:58
PROVIDERS: ATTEND Radiology Radiation Oncology
DX: Z51.0 Encounter for antineoplastic radiation therapy (principal); C61 Malignant neoplasm of prostate
CPT/HCPCS: 77301; 77334; 77336; 77338; 77385

== ENCOUNTER → 2017-05-04 | Outpatient (CLI) | payer MEDICARE, OTHER ==
[~2017-05-04] MED LIST changes: +AMLO10TA2 PO; +AMOX-358 PO; +ASPI-983 PO; +CALC625T14 PO; +CHOL10007 PO; +CLOP75TA28 PO; +DOCU-143 PO; +EZET10TA5 PO; +FERR-84 PO; +FEXO1TAB40 PO; +HYDR-757 PO; +L. A1CAP9 PO; +MAGN500C15 PO; +ROSU10TA24 PO; +VALS160T28 PO; +VITA150T PO
[2017-05-04 09:49] LABS: CHOLESTEROL 219 MG/DL (< 200); DIRECT LDL 146 MG/DL (1-129); TRIGLYCERIDES 241 MG/DL (<150); VLDL CHOLESTEROL 48 MG/DL (5-40)
== END ==
LOC: LAB 09:14
PROVIDERS: ATTEND Internal Medicine Interventional Cardiology
DX: I70.213 Atherosclerosis of native arteries of extremities with intermittent claudication, bilateral legs (principal); E78.4 Other hyperlipidemia; E00.1 Congenital iodine-deficiency syndrome, myxedematous type; I10 Essential (primary) hypertension; Z72.0 Tobacco use
CPT/HCPCS: 36415; 80061

== ENCOUNTER 2017-05-10 15:25 | Outpatient (RCR) | payer MEDICARE, OTHER ==
[~2017-05-10 15:25] MED LIST changes: -AMLO10TA2 PO; -AMOX-358 PO; -ASPI-983 PO; -CALC625T14 PO; -CHOL10007 PO; -CLOP75TA28 PO; -DOCU-143 PO; -EZET10TA5 PO; -FERR-84 PO; -FEXO1TAB40 PO; -HYDR-757 PO; -L. A1CAP9 PO; -MAGN500C15 PO; -ROSU10TA24 PO; -VALS160T28 PO; -VITA150T PO
== END 2017-07-30 | disposition home or self-care (01) ==
LOC: ONC 15:25
PROVIDERS: ATTEND Radiology Radiation Oncology
DX: C61 Malignant neoplasm of prostate (principal)
CPT/HCPCS: 99213

== ENCOUNTER → 2017-05-26 | Outpatient (CLI) | payer MEDICARE, OTHER ==
[2017-05-26 12:16] LABS: MEAN PLATELET VOLUME 9.4 FL (7.4-10.4); RED BLOOD COUNT 5.14 10^6/uL (4.35-5.85); RED CELL DISTRIBUTION WIDTH 14.7 % (10.0-14.5); WHITE BLOOD COUNT 9.9 10^3/uL (4.3-11.0)
[2017-05-26 12:26] LABS: ALBUMIN 4.3 GM/DL (3.2-4.5); CALCIUM 9.1 MG/DL (8.5-10.1); CREATININE SERUM 2.1 MG/DL (0.60-1.30); PHOSPHORUS 4.3 MG/DL (2.3-4.7); POTASSIUM 4.1 MMOL/L (3.6-5.0)
[2017-05-26 12:26] LABS: PROTEIN/CREATININE RATIO 0.06
== END ==
LOC: LAB 11:51
PROVIDERS: ATTEND Internal Medicine Nephrology
DX: I12.9 Hypertensive chronic kidney disease with stage 1 through stage 4 chronic kidney disease, or unspecified chronic kidney disease (principal); N18.3 Chronic kidney disease, stage 3 (moderate); E87.2 Acidosis; N32.89 Other specified disorders of bladder; I73.9 Peripheral vascular disease, unspecified; Z72.0 Tobacco use
CPT/HCPCS: 36415; 80069; 82570; 84156; 85027

== ENCOUNTER → 2017-06-27 | Outpatient (CLI) | payer MEDICARE, OTHER ==
--- NOTE | 2017-06-27 13:48 | Diagnostic Imaging Report ---
PROCEDURE: MRI lumbar spine. TECHNIQUE: Multiplanar, multisequence MRI of the lumbar spine was performed without contrast. INDICATION: Back pain. History of remote trauma. Leg numbness. COMPARISON: None. FINDINGS: For the purposes of this exam, last well-formed disc space is denoted the L5-S1 level. Static alignment is maintained. There is no significant rafy- or retro-listhesis. There is no evidence of jumped facets. Vertebral body heights are maintained. There is no evidence of acute fracture. Marrow signal is normal throughout. Intervertebral disc heights are also fairly well maintained. Visualized portions of the distal cord are unremarkable. Conus terminates at approximately the L2 level. No abnormal intrathecal filling defects are seen. Pre- and para-vertebral soft tissue structures are unremarkable. Note is made of asymmetric right renal atrophy. Axial images demonstrate the following: T12-L1 and L1-L2: There is no large disc bulge or focal protrusion. There is no significant spinal canal or neural foraminal stenosis. L2-L3: There is bilateral facet arthropathy. There is, however, no large disc bulge or focal protrusion. There is no significant spinal canal or neural foraminal stenosis. L3-L4: There is bilateral facet arthropathy. There is no large disc bulge or focal protrusion. There is no significant spinal canal or neural foraminal stenosis. L4-L5: There is perhaps slight broad-based posterior disc bulge and bilateral ligamentum flavum laxity and facet arthropathy. As a result, there is minimal narrowing of the spinal canal and bilateral neural foramen. L5-S1: There is bilateral facet arthropathy. There is no large disc bulge. There is no significant spinal canal or neural foraminal stenosis. IMPRESSION: 1. Multilevel degenerative changes, greatest at the L4-L5 level. 2. No acute fracture or dislocation of the lumbar spine. Dictated by: Dictated on workstation # [id number]
== END ==
LOC: RAD 10:35
PROVIDERS: ATTEND Orthopaedic Surgery
DX: M47.816 Spondylosis without myelopathy or radiculopathy, lumbar region (principal)
CPT/HCPCS: 72148

== ENCOUNTER → 2017-08-02 | Outpatient (CLI) | payer MEDICARE, OTHER ==
[2017-08-02 11:50] LABS: BASOPHILS % (AUTO) 0 % (0-10); EOSINOPHILS # (AUTO) 0.4 10^3/uL (0.0-0.3); EOSINOPHILS % (AUTO) 4 % (0-10); LYMPHOCYTES # (AUTO) 1.6 X 10^3 (1.0-4.0); LYMPHOCYTES % (AUTO) 17 % (12-44); MEAN CORPUSCULAR HEMOGLOBIN 31 PG (25-34); MEAN CORPUSCULAR HGB CONC 35 G/DL (32-36); MEAN CORPUSCULAR VOLUME 88 FL (80-99); MEAN PLATELET VOLUME 9.2 FL (7.4-10.4); MONOCYTES # (AUTO) 0.7 X 10^3 (0.0-1.0); MONOCYTES % (AUTO) 8 % (0-12); NEUTROPHILS # (AUTO) 6.7 X 10^3 (1.8-7.8); NEUTROPHILS % (AUTO) 72 % (42-75); PLATELET COUNT 270 10^3/uL (130-400); RED BLOOD COUNT 5.26 10^6/uL (4.35-5.85); RED CELL DISTRIBUTION WIDTH 14.7 % (10.0-14.5); WHITE BLOOD COUNT 9.4 10^3/uL (4.3-11.0)
[2017-08-02 12:24] LABS: ALBUMIN 4.4 GM/DL (3.2-4.5); BILIRUBIN,TOTAL 0.4 MG/DL (0.1-1.0); CALCIUM 9.2 MG/DL (8.5-10.1); CREATININE SERUM 1.66 MG/DL (0.60-1.30); POTASSIUM 4.4 MMOL/L (3.6-5.0); TOTAL PROTEIN 7.4 GM/DL (6.4-8.2)
[2017-08-02 12:35] LABS: THYROID STIMULATING HORMONE 1.42 UIU/ML (0.35-4.94)
== END ==
LOC: LAB 11:13
PROVIDERS: ATTEND Internal Medicine Interventional Cardiology
DX: I25.10 Atherosclerotic heart disease of native coronary artery without angina pectoris (principal); E78.4 Other hyperlipidemia; N18.9 Chronic kidney disease, unspecified; I70.213 Atherosclerosis of native arteries of extremities with intermittent claudication, bilateral legs; I70.1 Atherosclerosis of renal artery; R00.1 Bradycardia, unspecified; Z72.0 Tobacco use
CPT/HCPCS: 36415; 80053; 80061; 84443; 85025

== ENCOUNTER → 2017-08-02 | Outpatient (CLI) | payer MEDICARE, OTHER ==
[2017-08-02 11:53] LABS: MEAN PLATELET VOLUME 9.4 FL (7.4-10.4); RED BLOOD COUNT 5.32 10^6/uL (4.35-5.85); RED CELL DISTRIBUTION WIDTH 14.8 % (10.0-14.5); WHITE BLOOD COUNT 9.3 10^3/uL (4.3-11.0)
[2017-08-02 11:58] LABS: BILIRUBIN,URINE NEGATIVE (NEGATIVE); KETONES,URINE NEGATIVE (NEGATIVE); LEUKOCYTE ESTERASE ,URINE NEGATIVE (NEGATIVE); NITRITE,URINE NEGATIVE (NEGATIVE); PH,URINE 6 (5-9); PROTEIN,URINE NEGATIVE (NEGATIVE); UROBILINOGEN,URINE NORMAL (NORMAL)
[2017-08-02 12:40] LABS: CREATININE SERUM 1.66 MG/DL (0.60-1.30); POTASSIUM 4.4 MMOL/L (3.6-5.0)
[2017-08-02 12:41] LABS: ALBUMIN 4.4 GM/DL (3.2-4.5); CALCIUM 9.2 MG/DL (8.5-10.1); PHOSPHORUS 3.3 MG/DL (2.3-4.7)
[2017-08-03 07:14] LABS: MICROALBUMIN/CREATININE RATIO 12.3 mg/gCR (0.0-30.0)
[2017-08-03 07:15] LABS: CALCIUM PARA THYROID HORMONE 9.2 mg/dL (8.5-10.5)
== END ==
LOC: LAB 11:17
PROVIDERS: ATTEND Internal Medicine Nephrology
DX: I12.9 Hypertensive chronic kidney disease with stage 1 through stage 4 chronic kidney disease, or unspecified chronic kidney disease (principal); N18.3 Chronic kidney disease, stage 3 (moderate); E87.2 Acidosis; N32.89 Other specified disorders of bladder; I73.9 Peripheral vascular disease, unspecified
CPT/HCPCS: 80069; 81000; 82043; 82306; 83970; 84100

== ENCOUNTER 2017-08-20 16:47 | Emergency (ER) | payer MEDICARE, OTHER ==
[~2017-08-20] VITALS: Ht 172.7 cm; Wt 86.2 kg
--- OUTSIDE RECORDS SUMMARY | 2017-08-20 16:52 | XMS REPORT ---
Author Author DINO Frausto Organization [facility] [place] Address Unknown Care Team Providers Care Police Stenographer Name Role Phone DINO Frausto Unavailable PROBLEMS Type Condition ICD9-CM Code [id number] Code Onset Dates Condition Status SNOMED Code Problem Hypertension I10 Active 66720640 Problem Back pain M54.9 Active 666217690 Problem Prostate cancer C61 Active 994825915 Problem Cigarette nicotine dependence without complication F17.210 Active 17770733 Problem Polyneuropathy associated with underlying disease G63 Active 208306181 Problem Hyperlipidemia, unspecified hyperlipidemia type E78.5 Active 31679855 Problem Reactive depression F32.9 Active 00945303 Problem Chronic kidney disease, unspecified stage N18.9 Active 900394065 ALLERGIES Substance Reaction Event Type Date Status Penicillin V Potassium hives Drug Allergy Dec, Active SOCIAL HISTORY Never Assessed PLAN OF CARE Activity Details Follow Up 1 Week Reason:#14-te VITAL SIGNS Height 68 in 2016-12-14 Blood pressure systolic 164 mmHg 2016-12-14 Blood pressure diastolic 81 mmHg 2016-12-14 MEDICATIONS Medication Instructions Dosage Frequency Start Date End Date Duration Status Zetia 10 mg Orally Once a day 1 tablet 24h May, Active Aspirin Adult Low Dose 81 MG Orally Once a day 1 tablet 24h Active Tramadol HCl 50 mg Orally every 6 hrs, prn pain 1-2 May, Active Valsartan-Hydrochlorothiazide 160-12.5 MG Orally, must be seen for more refills Once a day 1 tablet 24h Active Gabapentin 300 MG Orally 2 times a day 1 capsule 12h Active Vitamin D-3 5000 UNIT Active Zoloft 50 mg Orally Once a day, pc 1 tablet Dec, 30 day(s) Active Clindamycin HCl 150 MG Orally three times 1 capsule Dec,Dec 7 days Active Probiotic Active Clopidogrel Bisulfate 75 MG Orally Once a day 1 tablet 24h 6 days Active Diclofenac Sodium 75 MG Orally 2 times a day, pc 1 tablet Active RESULTS No Results PROCEDURES Procedure Date Ordered Result Body Site LTD ORAL EVALUATION - PROBLEM FOCUS Dec 14, 2016 INTRAORL-PERIAPICAL 1 FILM [id number] Dec 14, 2016 IMMUNIZATIONS No Known Immunizations MEDICAL (GENERAL) HISTORY Type Description Date Medical History HTN Medical History Minimal arotic blockage Medical History GERD Medical History Prostate Cancer 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
--- OUTSIDE RECORDS SUMMARY | 2017-08-20 16:52 | XMS REPORT ---
Author Author CONSTANTINE YOUNG [facility] Address [address] [place] [address] Care Team Providers Care Reactor Fueling Supervisor Name Role Phone CONSTANTINE YOUNG Unavailable PROBLEMS Type Condition ICD9-CM Code [id number] Code Onset Dates Condition Status SNOMED Code Problem Hypertension I10 Active 43220310 Problem Back pain M54.9 Active 555224709 Problem Prostate cancer C61 Active 364956456 Problem Cigarette nicotine dependence without complication F17.210 Active 17649952 Problem Polyneuropathy associated with underlying disease G63 Active 321387392 Problem Hyperlipidemia, unspecified hyperlipidemia type E78.5 Active 51324149 Problem Reactive depression F32.9 Active 27809215 Problem Chronic kidney disease, unspecified stage N18.9 Active 686794877 ALLERGIES Substance Reaction Event Type Date Status Penicillin V Potassium hives Drug Allergy Dec, Active SOCIAL HISTORY Never Assessed PLAN OF CARE Activity Details Follow Up 4 Months Reason: VITAL SIGNS Height 68 in 2016-12-13 Weight 194 lbs 2016-12-13 Temperature 97.7 degrees Fahrenheit 2016-12-13 Heart Rate 64 bpm 2016-12-13 Respiratory Rate 20 2016-12-13 BMI 29.49 kg/m2 2016-12-13 Blood pressure systolic 138 mmHg 2016-12-13 Blood pressure diastolic 68 mmHg 2016-12-13 MEDICATIONS Medication Instructions Dosage Frequency Start Date End Date Duration Status Zoloft 50 mg Orally Once a day, pc 1 tablet Dec, 30 day(s) Active Valsartan-Hydrochlorothiazide 160-12.5 MG Orally, must be seen for more refills Once a day 1 tablet 24h Active Diclofenac Sodium 75 MG Orally 2 times a day, pc 1 tablet Active Clopidogrel Bisulfate 75 MG Orally Once a day 1 tablet 24h 6 days Active Vitamin D-3 5000 UNIT Active Probiotic Active Aspirin Adult Low Dose 81 MG Orally Once a day 1 tablet 24h Active Gabapentin 300 MG Orally 2 times a day 1 capsule 12h Active Tramadol HCl 50 mg Orally every 6 hrs, prn pain 1-2 16 May, 2016 Active Zetia 10 mg Orally Once a day 1 tablet 24h May, Active RESULTS No Results PROCEDURES No Known procedures IMMUNIZATIONS No Known Immunizations MEDICAL (GENERAL) HISTORY Type Description Date Medical History HTN Medical History Minimal arotic blockage Medical History GERD Medical History Prostate Cancer 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
--- OUTSIDE RECORDS SUMMARY | 2017-08-20 16:52 | XMS REPORT ---
Author Author CONSTANTINE YOUNG [facility] Address [address] [place] [address] Care Team Providers Care Top Tile Decorator Name Role Phone CONSTANTINE YOUNG Unavailable PROBLEMS Type Condition ICD9-CM Code [id number] Code Onset Dates Condition Status SNOMED Code Problem Hypertension I10 Active 61232506 Problem Back pain M54.9 Active 171587565 Problem Prostate cancer C61 Active 954439341 Problem Cigarette nicotine dependence without complication F17.210 Active 23265151 Problem Polyneuropathy associated with underlying disease G63 Active 563191300 Problem Hyperlipidemia, unspecified hyperlipidemia type E78.5 Active 81094023 Problem Reactive depression F32.9 Active 80581558 Problem Chronic kidney disease, unspecified stage N18.9 Active 219618257 ALLERGIES No Known Allergies SOCIAL HISTORY No smoking Hx information available PLAN OF CARE VITAL SIGNS MEDICATIONS Medication Instructions Dosage Frequency Start Date End Date Duration Status Valsartan-Hydrochlorothiazide 160-12.5 MG Orally, must be seen for more refills Once a day 1 tablet 24h Active RESULTS No Results PROCEDURES No Known procedures IMMUNIZATIONS No Known Immunizations
--- OUTSIDE RECORDS SUMMARY | 2017-08-20 16:52 | XMS REPORT ---
Author Author ALDEN MALAVE [facility] Address [address] [place] [address] Care Team Providers Care Mill Washer Name Role Phone ANANDA ALDEN Unavailable PROBLEMS Type Condition ICD9-CM Code [id number] Code Onset Dates Condition Status SNOMED Code Problem Back pain M54.9 Active 094363378 Problem Hypertension I10 Active 25249519 Problem Prostate cancer C61 Active 489825538 Problem Reactive depression F32.9 Active 84226197 Problem Polyneuropathy associated with underlying disease G63 Active 321205661 Problem Hyperlipidemia, unspecified hyperlipidemia type E78.5 Active 70458624 Problem Cigarette nicotine dependence without complication F17.210 Active 05510116 Problem Chronic kidney disease, unspecified stage N18.9 Active 338037950 ALLERGIES Substance Reaction Event Type Date Status Penicillin V Potassium hives Drug Allergy Sep, Active SOCIAL HISTORY No smoking Hx information available PLAN OF CARE VITAL SIGNS Height 68 in 2016-10-20 Weight 196.4 lbs 2016-10-20 Temperature 98.4 degrees Fahrenheit 2016-10-20 Heart Rate 64 bpm 2016-10-20 Respiratory Rate 18 2016-10-20 BMI 29.86 kg/m2 2016-10-20 Blood pressure systolic 136 mmHg 2016-10-20 Blood pressure diastolic 80 mmHg 2016-10-20 MEDICATIONS Medication Instructions Dosage Frequency Start Date End Date Duration Status Vitamin D-3 5000 UNIT Active Gabapentin 300 MG Orally 2 times a day 1 capsule 12h Active Clindamycin HCl 150 MG Orally every 6 hrs 2 capsules 6h Sep, Sep, 10 days Active Diclofenac Sodium 75 MG Orally 2 times a day, pc 1 tablet Active Aspirin Adult Low Dose 81 MG Orally Once a day 1 tablet 24h Active Zetia 10 mg Orally Once a day 1 tablet 24h May, Active Tramadol HCl 50 mg Orally every 6 hrs, prn pain 1-2 May, Active Probiotic Active Valsartan-Hydrochlorothiazide 160-12.5 MG Orally Once a day 1 tablet 24h 6 days Active Clopidogrel Bisulfate 75 MG Orally Once a day 1 tablet 24h 6 days Active RESULTS No Results PROCEDURES Procedure Date Ordered Related Diagnosis Body Site Office Visit, Est Pt., Level 3 Oct 20, 2016 IMMUNIZATIONS No Known Immunizations
--- OUTSIDE RECORDS SUMMARY | 2017-08-20 16:53 | XMS REPORT ---
Author Author CONSTANTINE YOUNG [facility] Address [address] [place] [address] Care Team Providers Care Cap And Hat Production Supervisor Name Role Phone CONSTANTINE YOUNG Unavailable PROBLEMS Type Condition ICD9-CM Code [id number] Code Onset Dates Condition Status SNOMED Code Problem Hypertension I10 Active 37089787 Problem Back pain M54.9 Active 448220799 Problem Prostate cancer C61 Active 611094799 Problem Cigarette nicotine dependence without complication F17.210 Active 24234838 Problem Polyneuropathy associated with underlying disease G63 Active 531933014 Problem Hyperlipidemia, unspecified hyperlipidemia type E78.5 Active 98906115 Problem Reactive depression F32.9 Active 88595685 Problem Chronic kidney disease, unspecified stage N18.9 Active 672387831 ALLERGIES Substance Reaction Event Type Date Status Penicillin V Potassium hives Drug Allergy Dec, Active SOCIAL HISTORY Never Assessed PLAN OF CARE Activity Details Follow Up 4 Months Reason: VITAL SIGNS Height 68 in 2017-01-14 Weight 193 lbs 2017-01-14 Temperature 98.2 degrees Fahrenheit 2017-01-14 Heart Rate 66 bpm 2017-01-14 Respiratory Rate 20 2017-01-14 BMI 29.34 kg/m2 2017-01-14 Blood pressure systolic 160 mmHg 2017-01-14 Blood pressure diastolic 72 mmHg 2017-01-14 MEDICATIONS Medication Instructions Dosage Frequency Start Date End Date Duration Status Valsartan-Hydrochlorothiazide 160-12.5 MG Orally, must be seen for more refills Once a day 1 tablet 24h Active Vitamin D-3 5000 UNIT Active Diclofenac Sodium 75 MG Orally 2 times a day, pc 1 tablet Active Probiotic Active Zoloft 50 mg Orally Once a day, pc 1 tablet Dec, 30 day(s) Active Chantix Starting Month Ezekiel 0.5 MG X 11 & 1 MG X 42 Orally 2 times a day as directed 12h 17 Dec, 2016 Jan, 30 days Active Zetia 10 mg Orally Once a day 1 tablet 24h May, Active Clopidogrel Bisulfate 75 MG Orally Once a day 1 tablet 24h 6 days Active Tramadol HCl 50 mg Orally every 6 hrs, prn pain 1-2 May, Active Aspirin Adult Low Dose 81 [...]
--- OUTSIDE RECORDS SUMMARY | 2017-08-20 16:53 | XMS REPORT ---
Author Author TITUS WOODALL Organization [facility] Address [address] [place] [address] Care Team Providers Care Broadcast Operations Technician Name Role Phone TITUS WOODALL Unavailable PROBLEMS Type Condition ICD9-CM Code TYH85-QI Code Onset Dates Condition Status SNOMED Code Problem Hypertension I10 Active 68445425 Problem Back pain M54.9 Active 227338827 Problem Prostate cancer C61 Active 156176386 Problem Cigarette nicotine dependence without complication F17.210 Active 99595918 Problem Polyneuropathy associated with underlying disease G63 Active 091091113 Problem Hyperlipidemia, unspecified hyperlipidemia type E78.5 Active 55163199 Problem Reactive depression F32.9 Active 19569968 Problem Chronic kidney disease, unspecified stage N18.9 Active 608852902 ALLERGIES Substance Reaction Event Type Date Status Penicillin V Potassium hives Drug Allergy Dec, Active SOCIAL HISTORY Never Assessed PLAN OF CARE Activity Details Follow Up prn Reason: VITAL SIGNS Height 68 in 2016-12-03 Weight 194.6 lbs 2016-12-03 Temperature 97.2 degrees Fahrenheit 2016-12-03 Heart Rate 60 bpm 2016-12-03 Respiratory Rate 20 2016-12-03 BMI 29.59 kg/m2 2016-12-03 Blood pressure systolic 136 mmHg 2016-12-03 Blood pressure diastolic 78 mmHg 2016-12-03 MEDICATIONS Medication Instructions Dosage Frequency Start Date End Date Duration Status Aspirin Adult Low Dose 81 MG Orally Once a day 1 tablet 24h Active Probiotic Active Vitamin D-3 5000 UNIT Active Zetia 10 mg Orally Once a day 1 tablet 24h May, Active Gabapentin 300 MG Orally 2 times a day 1 capsule 12h Active Diclofenac Sodium 75 MG Orally 2 times a day, pc 1 tablet Active Clopidogrel Bisulfate 75 MG Orally Once a day 1 tablet 24h 6 days Active Valsartan-Hydrochlorothiazide 160-12.5 MG Orally, must be seen for more refills Once a day 1 tablet 24h Active Tramadol HCl 50 mg Orally every 6 hrs, prn pain 1-2 May, Active RESULTS Name Result Date Reference Range INFLUENZA A & B (IN HOUSE) 2016-12-03 INFLUENZA A positive INFLUENZA B negative Control + Lot # [id number] Exp date 04-29-18 STREP A (IN HOUSE) 2016-12-03 STREP A negative Control + Lot # [id number] Exp date [id number] PROCEDURES Procedure Date Ordered Result Body Site STREP A ASSAY W/OPTIC Dec 03, 2016 INFLUENZA ASSAY W/OPTIC Dec 03, 2016 IMMUNIZATIONS No Known Immunizations MEDICAL (GENERAL) HISTORY Type Description Date Medical History HTN Medical History Minimal arotic blockage Medical History GERD Medical History Prostate Cancer 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
--- OUTSIDE RECORDS SUMMARY | 2017-08-20 16:53 | XMS REPORT ---
Author Author DINO Frausto Organization [facility] Address Unknown Care Team Providers Care Solidworks Mechanical Designer Name Role Phone DINO Frausto Unavailable PROBLEMS Type Condition ICD9-CM Code [id number] Code Onset Dates Condition Status SNOMED Code Problem Hypertension I10 Active 46885893 Problem Back pain M54.9 Active 502431381 Problem Prostate cancer C61 Active 723860044 Problem Cigarette nicotine dependence without complication F17.210 Active 32983308 Problem Polyneuropathy associated with underlying disease G63 Active 935805358 Problem Hyperlipidemia, unspecified hyperlipidemia type E78.5 Active 11342016 Problem Reactive depression F32.9 Active 61639088 Problem Chronic kidney disease, unspecified stage N18.9 Active 172929501 ALLERGIES Substance Reaction Event Type Date Status Penicillin V Potassium hives Drug Allergy Oct, Active SOCIAL HISTORY No smoking Hx information available PLAN OF CARE Activity Details Follow Up prn Reason:fillings VITAL SIGNS Height 68 in 2016-11-24 Blood pressure systolic 164 mmHg 2016-11-24 Blood pressure diastolic 92 mmHg 2016-11-24 MEDICATIONS Medication Instructions Dosage Frequency Start Date End Date Duration Status Vitamin D-3 5000 UNIT Active Probiotic Active Zetia 10 mg Orally Once a day 1 tablet 24h May, Active Gabapentin 300 MG Orally 2 times a day 1 capsule 12h Active Tramadol HCl 50 mg Orally every 6 hrs, prn pain 1-2 May, Active Diclofenac Sodium 75 MG Orally 2 times a day, pc 1 tablet Active Clindamycin HCl 150 MG Orally every 6 hrs 2 capsules 6h Oct, Oct, 10 days Active Aspirin Adult Low Dose 81 MG Orally Once a day 1 tablet 24h Active Valsartan-Hydrochlorothiazide 160-12.5 MG Orally, must be seen for more refills Once a day 1 tablet 24h Active Clopidogrel Bisulfate 75 MG Orally Once a day 1 tablet 24h 6 days Active RESULTS No Results PROCEDURES Procedure Date Ordered Related Diagnosis Body Site INTRAORL-PERIAPICAL EA ADD FILM Nov 24, 2016 EXTRAC ERUPTED TOOTH/EXPOSED ROOT Nov 24, 2016 IMMUNIZATIONS No Known Immunizations
--- NOTE | 2017-08-20 17:26 | ED General ---
General Chief Complaint: Back Problems Stated Complaint: LOWER BACK PAIN Nursing Triage Note: c/o low sacral pain. Onset . Denies known acute injury. Nursing Sepsis Screen: No Definite Risk Source of Information: Patient Exam Limitations: No Limitations (ORIANA WYMAN MD) History of Present Illness Time Seen by Provider: 17:15 Initial Comments Here with report of onset of pain on the tailbone. This has been going on for a few days. Denies injury but has been more active this week including lawn mowing for 3 days sitting on the lawnmower. States the seat was padded though. Denies problems with bowel movements are urination. Does have history of prostate cancer as well as bladder cancer. Bladder tumor was removed and the prostate was treated with radiation. PSA results recently have showed continual decline and he is in the range of 2 per the patient currently. Timing/Duration: 2-3 Days Severity: Moderate Associated Systoms: No Cough, No Fever/Chills, No Nausea/Vomiting, No Shortness of Air, No Weakness (ORIANA WYMAN MD) Allergies and Home Medications Allergies Coded Allergies: Penicillins (Verified Adverse Reaction, Mild, ORAL THRUSH, 01/17/15) Oral thrush Uncoded Allergies: KNA (Allergy, Unknown, 01/17/15) Home Medications Aspirin 81 Mg Tablet.dr, 81 MG PO DAILY, (Reported) Atorvastatin Calcium 80 Mg Tablet, 80 MG PO HS for 30 Days Prescribed by: MERISSA YODER on 05/28/14 1137 Cetirizine Hcl 10 Mg Tablet, 10 MG PO DAILY, (Reported) Clindamycin HCl 150 Mg Capsule, 150 MG PO QID for 6 Days, #24 Ref 0 Prescribed by: SHAKILA RUFFIN on 02/06/17 1632 Clopidogrel Bisulfate 75 Mg Tablet, 75 MG PO DAILY, (Reported) Hydrocodone/Acetaminophen 1 Each Tablet, 1 EACH PO Q4H PRN for PAIN, #14 Ref 0 Prescribed by: SHAKILA RUFFIN on 02/06/17 1623 Hydrocodone/Acetaminophen 1 Each Tablet, 1 EACH PO Q4H PRN for PAIN-SEVERE, #14 Prescribed by: ESTEFANY HINDS on 08/20/17 1851 Multivitamin 1 Each Tablet, 1 EACH PO DAILY, (Reported) [Losartan Potassium] 25 MG TAB, 50 MG PO DAILY Prescribed by: ENRIQUE VERDUGO on 01/19/151925 Constitutional: no symptoms reported EENTM: no symptoms reported Respiratory: no symptoms reported Cardiovascular: no symptoms reported Gastrointestinal: no symptoms reported, No constipation, No diarrhea, No nausea Genitourinary: No dysuria, No pain Musculoskeletal: see HPI, joint pain, No muscle pain Skin: no symptoms reported (ORIANA WYMAN MD) Past Khtswir-Nxybjf-Rmiafi Hx Patient Social History Alcohol Use: Occasionally Uses Recreational Drug Use: No Smoking Status: Current Everyday Smoker Recent Foreign Travel: No Contact w/Someone Who Travel: No Recent Infectious Disease Expo: No Recent Hopitalizations: No (ORIANA WYMAN MD) Immunizations Up To Date Tetanus Booster (TDap): More than 5yrs PED Vaccines UTD: No (ORIANA WYMAN MD) Surgeries History of Surgeries: Yes Surgeries: Bladder Surgery (ORIANA WYMAN MD) Respiratory History of Respiratory Disorde: Yes Respiratory Disorders: Sleep Apnea (ORIANA WYMAN MD) Cardiovascular History of Cardiac Disorders: Yes Cardiac Disorders: High Cholesterol, Hypertension (ORIANA WYMAN MD) Reproductive System Hx Reproductive Disorders: No Sexually Transmitted Disease: No HIV/AIDS: No (ORIANA WYMAN MD) Genitourinary History of Genitourinary Disor: Yes Genitourinary Disorders: Renal Failure (ORIANA WYMAN MD) Gastrointestinal History of Gastrointestinal Di: No (ORIANA WYMAN MD) Musculoskeletal History of Musculoskeletal Dis: No (ORIANA WYMAN MD) Cancer History of Cancer: Yes Cancer: Bladder, Prostate Type of Tx Receive: Radiation, Surgical Intervention (ORIANA WYMAN MD) Blood Transfusions Adverse Reaction to a Blood Tr: No (ORIANA WYMAN MD) Reviewed Nursing Assessment Reviewed/Agree w Nursing PMH: Yes (ORIANA WYMAN MD) Family Medical History Family Medial History: Family history: Cardiovascular disease 19 FATHER, Onset:Unknown Family history: Coronary thrombosis 19 FATHER, Onset:Unknown History of - respiratory disease 19 MOTHER, Onset:Unknown G8 SISTER, Onset:Unknown (ORIANA WYMAN MD) Family Medial History: Family history: Cardiovascular disease 19 FATHER, Onset:Unknown Family history: Coronary thrombosis 19 FATHER, Onset:Unknown History of - respiratory disease 19 MOTHER, Onset:Unknown G8 SISTER, Onset:Unknown No Family History of: Abdominal aortic aneurysm Isanti's disease Alcoholism Aphasia Cancer Cancer of colon Cataract Chest pain Congenital heart disease Congestive heart failure Cystic fibrosis Dementia Dysphagia Family history: Allergy Family history: Alzheimer's disease Family history: Arthritis Family history: Asthma Family history: Breast disease Family history: Diabetes mellitus Family history: Gastrointestinal disease Family history: Glaucoma Family history: Hypertension Family history: Osteoporosis Family history: Thyroid disorder Headache Hearing loss Heart disease Hereditary disease History of - anemia History of - disorder History of drug abuse Human immunodeficiency virus (HIV) seropositivity Hypercholesterolemia Infertile Kidney disease Malignant neoplasm of lung Myocardial infarction Parkinson's disease Prostate cancer Psychotic disorder Seizure disorder Stroke Tuberculosis Visual impairment (ESTEFANY HINDS APRN) Physical Exam Vital Signs Vital Sign - Last 12Hours 08/20/17 17:06 Temp 97.5 Pulse 70 Resp 16 B/P (MAP) 145/69 O2 Delivery Room Air (ESTEFANY HINDS APRN) Vital Signs Capillary Refill : Less Than 3 Seconds (ORIANA WYMAN MD) General Appearance: No Apparent Distress, WD/WN Neck: Non Tender, Supple Respiratory: Lungs Clear, Normal Breath Sounds Cardiovascular: Regular Rate, Rhythm, No Murmur Gastrointestinal: Non Tender, Soft Rectal: Normal Exam, Normal Rectal Tone, Heme Negative Stool, No Mass, Other ( tender at the area of the coccyx. No mass noted. Prostate appears enlarged) Back: Normal Inspection, No CVA Tenderness, No Vertebral Tenderness Extremity: Normal Range of Motion, Non Tender Neurologic/Psychiatric: Alert, Oriented x3 Skin: Normal Color, Warm/Dry (ORIANA WYMAN MD) Progress/Results/Core Measures Results/Orders Lab Results Laboratory Tests Test 08/20/17 17:33 Range/Units White Blood Count 12.0 H 4.3-11.0 10^3/uL Red Blood Count 5.06 4.35-5.85 10^6/uL Hemoglobin 15.5 13.3-17.7 G/DL Hematocrit 44 40-54 % Mean Corpuscular Volume 87 80-99 FL Mean Corpuscular Hemoglobin 31 25-34 PG Mean Corpuscular Hemoglobin Concent 35 32-36 G/DL Red Cell Distribution Width 14.9 H 10.0-14.5 % Platelet Count 258 130-400 10^3/uL Mean Platelet Volume 9.7 7.4-10.4 FL Neutrophils (%) (Auto) 72 42-75 % Lymphocytes (%) (Auto) 15 12-44 % Monocytes (%) (Auto) 9 0-12 % Eosinophils (%) (Auto) 4 0-10 % Basophils (%) (Auto) 0 0-10 % Neutrophils # (Auto) 8.6 H 1.8-7.8 X 10^3 Lymphocytes # (Auto) 1.8 1.0-4.0 X 10^3 Monocytes # (Auto) 1.1 H 0.0-1.0 X 10^3 Eosinophils # (Auto) 0.5 H 0.0-0.3 10^3/uL Basophils # (Auto) 0.0 0.0-0.1 10^3/uL Sodium Level 139 135-145 MMOL/L Potassium Level 4.7 3.6-5.0 MMOL/L Chloride Level 109 H 98-107 MMOL/L Carbon Dioxide Level 20 L 21-32 MMOL/L Anion Gap 10 5-14 MMOL/L Blood Urea Nitrogen 29 H 7-18 MG/DL Creatinine 1.90 H 0.60-1.30 MG/DL Estimat Glomerular Filtration Rate 36 BUN/Creatinine Ratio 15 Glucose Level 85 70-105 MG/DL Calcium Level 9.3 8.5-10.1 MG/DL Total Bilirubin 0.2 0.1-1.0 MG/DL Aspartate Amino Transf (AST/SGOT) 18 5-34 U/L Alanine Aminotransferase (ALT/SGPT) 21 0-55 U/L Alkaline Phosphatase 110 40-136 U/L C-Reactive Protein High Sensitivity 0.85 H 0.00-0.50 MG/DL Total Protein 7.5 6.4-8.2 GM/DL Albumin 4.3 3.2-4.5 GM/DL (ESTEFANY HINDS APRN) Medications Given in ED Current Medications Medications Dose Ordered Sig/Markus Route Start Time Stop Time Status Last Admin Dose Admin Acetaminophen/ Hydrocodone Bitart 1 ea ONCE ONCE PO 08/20/17 18:30 08/20/17 18:31 DC 08/20/17 18:28 1 EA (ESTEFANY HINDS APRN) Vital Signs/I&O Vital Sign - Last 12Hours 08/20/17 08/20/17 17:06 18:28 Temp 97.5 97.5 Pulse 70 Resp 16 B/P (MAP) 145/69 O2 Delivery Room Air (HINDSESTEFANY PHIPPS Mario SHAPER SETTER) Blood Pressure Mean: 94 Progress Note : Progress Note Seen and evaluated. Rectal exam performed. Noticed mass noted. Due to patient 's history of prostate cancer as well as bladder cancer, CT scan would be appropriate. Patient has chronic kidney disease which makes contrast unavailable. We will get noncontrast scan of the abdomen and pelvis. We will check basic labs. Monitor patient. Care transferred to Estefany Hinds pending CT results. (ORIANA WYMAN MD) Diagnostic Imaging Diagonstic Imaging: CT Comments NAME: CHERYL DIMAS [facility] REC#: [id number] PT STATUS: REG ER : 1950 PHYSICIAN: ORIANA WYMAN MD ADMIT DATE: 08/20/17/ER Draft Date of Exam:08/20/17 CT ABDOMEN/PELVIS WO PROCEDURE: CT abdomen and pelvis without contrast. TECHNIQUE: Multiple contiguous axial images were obtained through the abdomen and pelvis without the use of intravenous contrast. INDICATION: Low back pain. History of bladder and prostate cancer. CORRELATION STUDY: 10/26/2016. FINDINGS: Heart size enlarged with prominent pericardial fat. Lung bases overall relatively clear. The unenhanced liver, gallbladder, spleen, pancreas and adrenal glands appearing unchanged. Slight thickening of the adrenal glands. Asymmetric atrophic changes of the right kidney. Perinephric stranding bilaterally stable. No obstructive uropathy. Abdominal aorta normal in contour. Bilateral common iliac artery stents are present on the left extending into the external iliac artery. The gastrointestinal tract without definitive evidence for obstruction or inflammation. Mild severity fecal retention. Normal appendix is present in the right lower quadrant. There are distal colonic diverticula noted. The urinary bladder decompressed. Markers in and around the posterior prostate are present. Penile implant present. Small fat-containing umbilical hernia noted. Osseous structures demonstrate no definitive evidence for acute findings. IMPRESSION: Colonic diverticulosis without evidence for acute diverticulitis. Noncontrast imaging demonstrates no acute abnormality about the abdomen and/or pelvis. Dictated on workstation # [id number] Dict: 08/20/17 1829 Trans: 08/20/17 1839 [id number] Interpreted by: DARREN,AJ K DO Electronically signed by: (ESTEFANY HINDS APRN) Departure Impression Impression: Primary Impression: Back pain Disposition: 01 HOME, SELF-CARE Condition: Stable Departure-Patient Inst. Decision time for Depature: 18:50 (ESTEFANY HINDS APRN) Referrals: CONSTANTINE YOUNG MD (PCP/Family) Primary Care Physician Patient Instructions: Low Back Pain (DC) Add. Discharge Instructions: 1. Return to ER for any concerns or worsening symptoms 2. Follow-up with your doctor next week 3. All discharge instructions reviewed with patient and/or family. Voiced understanding. Scripts Hydrocodone/Acetaminophen ([place] 5-325 Tablet) 1 Each Tablet 1 EACH PO Q4H Y for PAIN-SEVERE, #14 TAB Prov: ESTEFANY HINDS APRN 08/20/17 ORIANA WYMAN MD Aug 20, 2017 17:26 ESTEFANY HINDS APRN Aug 20, 2017 18:51
[2017-08-20 17:44] LABS: BASOPHILS % (AUTO) 0 % (0-10); EOSINOPHILS # (AUTO) 0.5 10^3/uL (0.0-0.3); EOSINOPHILS % (AUTO) 4 % (0-10); LYMPHOCYTES # (AUTO) 1.8 X 10^3 (1.0-4.0); LYMPHOCYTES % (AUTO) 15 % (12-44); MEAN CORPUSCULAR HEMOGLOBIN 31 PG (25-34); MEAN CORPUSCULAR HGB CONC 35 G/DL (32-36); MEAN CORPUSCULAR VOLUME 87 FL (80-99); MEAN PLATELET VOLUME 9.7 FL (7.4-10.4); MONOCYTES # (AUTO) 1.1 X 10^3 (0.0-1.0); MONOCYTES % (AUTO) 9 % (0-12); NEUTROPHILS # (AUTO) 8.6 X 10^3 (1.8-7.8); NEUTROPHILS % (AUTO) 72 % (42-75); PLATELET COUNT 258 10^3/uL (130-400); RED BLOOD COUNT 5.06 10^6/uL (4.35-5.85); RED CELL DISTRIBUTION WIDTH 14.9 % (10.0-14.5)
[2017-08-20 18:06] LABS: ALBUMIN 4.3 GM/DL (3.2-4.5); BILIRUBIN,TOTAL 0.2 MG/DL (0.1-1.0); CALCIUM 9.3 MG/DL (8.5-10.1); CREATININE SERUM 1.9 MG/DL (0.60-1.30); POTASSIUM 4.7 MMOL/L (3.6-5.0); TOTAL PROTEIN 7.5 GM/DL (6.4-8.2); hs C REACTIVE PROTEIN 0.85 MG/DL (0.00-0.50)
[2017-08-20] MEDS ORDERED: HYDROcodone/APAP 7.5 MG/325 MG (LORTAB, LORCET PLUS) TABLET PO ONE (18:30)
--- NOTE | 2017-08-20 18:40 | Diagnostic Imaging Report ---
PROCEDURE: CT abdomen and pelvis without contrast. TECHNIQUE: Multiple contiguous axial images were obtained through the abdomen and pelvis without the use of intravenous contrast. INDICATION: Low back pain. History of bladder and prostate cancer. CORRELATION STUDY: 10/26/2016. FINDINGS: Heart size enlarged with prominent pericardial fat. Lung bases overall relatively clear. The unenhanced liver, gallbladder, spleen, pancreas and adrenal glands appearing unchanged. Slight thickening of the adrenal glands. Asymmetric atrophic changes of the right kidney. Perinephric stranding bilaterally stable. No obstructive uropathy. Abdominal aorta normal in contour. Bilateral common iliac artery stents are present on the left extending into the external iliac artery. The gastrointestinal tract without definitive evidence for obstruction or inflammation. Mild severity fecal retention. Normal appendix is present in the right lower quadrant. There are distal colonic diverticula noted. The urinary bladder decompressed. Markers in and around the posterior prostate are present. Penile implant present. Small fat-containing umbilical hernia noted. Osseous structures demonstrate no definitive evidence for acute findings. IMPRESSION: Colonic diverticulosis without evidence for acute diverticulitis. Noncontrast imaging demonstrates no acute abnormality about the abdomen and/or pelvis. Dictated by: Dictated on workstation # [id number]
[2017-08-20] MEDS ORDERED: HYDR-757 PO (18:51)
[2017-08-20 18:54] VITALS: BP 138/62
== END 2017-08-20 18:54 | disposition home or self-care (01) ==
LOC: EDUNIT# 16:47 → ER 16:48
DX: M54.5 Low back pain (principal); G47.30 Sleep apnea, unspecified; E78.00 Pure hypercholesterolemia, unspecified; I10 Essential (primary) hypertension; F17.200 Nicotine dependence, unspecified, uncomplicated; Z85.46 Personal history of malignant neoplasm of prostate; Z82.49 Family history of ischemic heart disease and other diseases of the circulatory system; Z85.51 Personal history of malignant neoplasm of bladder; Z79.82 Long term (current) use of aspirin
CPT/HCPCS: 36415; 74176; 80053; 85025; 86141; 99283

== ENCOUNTER → 2017-11-28 | Outpatient (CLI) | payer MEDICARE, OTHER ==
[~2017-11-28] MED LIST changes: +ACHD5005 PO; +AMLO10TA2 PO; +AMOX-358 PO; +ASPI-983 PO; +CALC625T14 PO; +CHOL10007 PO; +CLOP75TA28 PO; +DOCU-143 PO; +EZET10TA5 PO; +FERR-84 PO; +FEXO1TAB40 PO; -HYDR-3812 PO; +HYDR-757 PO; +L. A1CAP9 PO; +MAGN500C15 PO; +ROSU10TA26 PO; +VALS160T28 PO; +VITA150T PO
[2017-11-28 14:07] LABS: ALBUMIN 4.6 GM/DL (3.2-4.5); CALCIUM 9.4 MG/DL (8.5-10.1); CREATININE SERUM 1.46 MG/DL (0.60-1.30); PHOSPHORUS 3.4 MG/DL (2.3-4.7); POTASSIUM 4.4 MMOL/L (3.6-5.0)
== END ==
LOC: LAB 13:25
PROVIDERS: ATTEND Internal Medicine Interventional Cardiology
DX: N18.9 Chronic kidney disease, unspecified (principal)
CPT/HCPCS: 36415; 80069

== ENCOUNTER → 2018-04-13 | Outpatient (CLI) | payer MEDICARE, OTHER ==
[2018-04-13 11:17] LABS: BASOPHILS % (AUTO) 0 % (0-10); EOSINOPHILS # (AUTO) 0.4 10^3/uL (0.0-0.3); EOSINOPHILS % (AUTO) 3 % (0-10); HEMATOCRIT 42 % (40-54); HEMOGLOBIN 15.1 G/DL (13.3-17.7); LYMPHOCYTES # (AUTO) 1.9 X 10^3 (1.0-4.0); LYMPHOCYTES % (AUTO) 18 % (12-44); MEAN CORPUSCULAR HEMOGLOBIN 32 PG (25-34); MEAN CORPUSCULAR HGB CONC 36 G/DL (32-36); MEAN CORPUSCULAR VOLUME 88 FL (80-99); MEAN PLATELET VOLUME 9.7 FL (7.4-10.4); MONOCYTES # (AUTO) 1.1 X 10^3 (0.0-1.0); MONOCYTES % (AUTO) 10 % (0-12); NEUTROPHILS # (AUTO) 7.4 X 10^3 (1.8-7.8); NEUTROPHILS % (AUTO) 69 % (42-75); PLATELET COUNT 255 10^3/uL (130-400); RED BLOOD COUNT 4.73 10^6/uL (4.35-5.85); RED CELL DISTRIBUTION WIDTH 15.5 % (10.0-14.5); WHITE BLOOD COUNT 10.8 10^3/uL (4.3-11.0)
[2018-04-13 11:20] LABS: BILIRUBIN,URINE NEGATIVE (NEGATIVE); CLARITY,URINE CLEAR; COLOR,URINE YELLOW; GLUCOSE, URINE (UA) NEGATIVE (NEGATIVE); KETONES,URINE NEGATIVE (NEGATIVE); LEUKOCYTE ESTERASE ,URINE NEGATIVE (NEGATIVE); NITRITE,URINE NEGATIVE (NEGATIVE); PH,URINE 5 (5-9); PROTEIN,URINE NEGATIVE (NEGATIVE); UROBILINOGEN,URINE NORMAL (NORMAL)
[2018-04-13 11:37] LABS: ALBUMIN 4.5 GM/DL (3.2-4.5); CALCIUM 9.4 MG/DL (8.5-10.1); CREATININE SERUM 1.84 MG/DL (0.60-1.30); MAGNESIUM 2.4 MG/DL (1.8-2.4); PHOSPHORUS 3.3 MG/DL (2.3-4.7); POTASSIUM 4.5 MMOL/L (3.6-5.0); URIC ACID 8.3 MG/DL (2.6-7.2)
[2018-04-13 11:38] LABS: BACTERIA,URINE NEGATIVE /HPF; SQUAMOUS EPITHELIAL CELL,UR RARE /HPF; WBC,URINE RARE /HPF
[2018-04-13 11:44] LABS: URINE CREATININE FOR RATIO 78 MG/DL (30-125); URINE PROTEIN FOR RATIO ONLY < 6 MG/DL (6-12)
== END ==
LOC: LAB 10:13
PROVIDERS: ATTEND Internal Medicine Nephrology
DX: N18.3 Chronic kidney disease, stage 3 (moderate) (principal)
CPT/HCPCS: 36415; 80069; 81000; 82306; 82570; 83735; 83970; 84156; 84550; 85025

== ENCOUNTER → 2018-10-18 | Outpatient (CLI) | payer MEDICARE, OTHER ==
[~2018-10-18] MED LIST changes: -AMLO10TA2 PO; +AMLO10TA6 PO; +HYDR-4226 PO; -HYDR-757 PO; -ROSU10TA26 PO; +ROSU10TA27 PO; -VALS160T28 PO; +VALS160T29 PO
--- NOTE | 2018-10-18 13:56 | Diagnostic Imaging Report ---
INDICATION: [id number] history of smoking. COMPARISON: 05/24/2014 TECHNIQUE: Routine noncontrast low-dose CT of the chest was performed for screening purposes. FINDINGS: Evaluation of the lung barriga demonstrates no focal consolidation, large effusion, nor pneumothorax. Several small micronodular and groundglass micronodular densities are identified scattered throughout both lungs. These all measure 5 mm or less in size. Property Underwriter micronodule is identified within the subpleural posterior margins of the superior segment of the left lower lobe (image #113, series 4). Property Underwriter micronodule on the right is seen centrally within the right upper lobe and measures approximately 5 mm (image #129, series 4). Cardiomediastinal structures are somewhat suboptimally evaluated secondary to low-dose noncontrast nature of the exam, but heart size is shown to be within normal limits. There is no large pericardial effusion. There is mild scattered calcified aortic and arterial atherosclerosis. Main pulmonary arterial trunk is borderline prominent measuring 3 cm in diameter. No pathologically enlarged or morphologically abnormal adenopathy is identified within the mediastinum, rafiq, nor axilla. Osseous structures show no acute abnormalities. No lytic or blastic bony lesions are seen. Included portions of the upper abdomen are unremarkable as well. IMPRESSION: 1. Multiple micronodular densities are identified bilaterally and measure 5 mm or less in size. Continued followup with annual low dose CT of the chest is recommended. 2. Borderline enlargement of the main pulmonary arterial trunk. Please note, enlargement of the main pulmonary arterial trunk can be seen with underlying pulmonary arterial hypertension. 3. Mild calcified aortic and coronary atherosclerosis. Lung-RADS category: 2 Modifiers: None Other significant findings: As described above. Dictated by: Dictated on workstation # [id number]
== END ==
LOC: RAD 10:43
PROVIDERS: ATTEND Internal Medicine
DX: Z12.2 Encounter for screening for malignant neoplasm of respiratory organs (principal); J98.4 Other disorders of lung; I28.8 Other diseases of pulmonary vessels; I70.0 Atherosclerosis of aorta; I25.10 Atherosclerotic heart disease of native coronary artery without angina pectoris; F17.210 Nicotine dependence, cigarettes, uncomplicated

== ENCOUNTER 2019-06-27 14:49 | Emergency (ER) | payer MEDICARE, OTHER ==
[~2019-06-27] VITALS: Ht 175.3 cm; Wt 88.5 kg
[~2019-06-27 14:49] MED LIST changes: -AMLO10TA6 PO; +AMLO10TA7 PO; -ROSU10TA27 PO; +ROSU10TA28 PO
--- NOTE | 2019-06-27 15:16 | NUR ---
SEE LIST FOR CURRENT MEDS
[2019-06-27 15:19] LABS: BILIRUBIN,URINE NEGATIVE (NEGATIVE); CLARITY,URINE SLIGHTLY CLOUDY; COLOR,URINE YELLOW; GLUCOSE, URINE (UA) NEGATIVE (NEGATIVE); KETONES,URINE NEGATIVE (NEGATIVE); LEUKOCYTE ESTERASE ,URINE NEGATIVE (NEGATIVE); NITRITE,URINE NEGATIVE (NEGATIVE); PH,URINE 5 (5-9); PROTEIN,URINE 2+ (NEGATIVE); UROBILINOGEN,URINE NORMAL (NORMAL)
[2019-06-27 15:28] LABS: RBC,URINE TNTC /HPF
[2019-06-27 15:29] LABS: BACTERIA,URINE FEW /HPF
--- NOTE | 2019-06-27 16:23 | ED GU-Male ---
General Chief Complaint: - Urinary Stated Complaint: BLOOD IN URINE Nursing Triage Note: CONCER BECAUSE HE HAS NOTICED BLOOD IN URINE FOR APX 3 DAYS. CONCERN THAT HAS HAD PMH BLADDER CA. TRIED TO CALL DR HUMPHRIES HAS APPOINTMENT WITH HIM ON TUE History of Present Illness Date Seen by Provider: Jun 27, 2019 Time Seen by Provider: 16:00 Initial Comments 69-year-old male presents for hematuria 3 days. He has a history of bladder cancer, started by Dr. Humphries approximately 2 years ago. He has an appointment next week. Timing/Duration: intermittent Severity/Quality: mild Associated Symptoms: denies symptoms Allergies and Home Medications Allergies Coded Allergies: Penicillins (Verified Adverse Reaction, Mild, ORAL THRUSH, 01/17/15) Oral thrush Home Medications Amlodipine Besylate 10 Mg Tablet, 10 MG PO HS, (Reported) Amoxicillin/Potassium Clav 1 Each Tablet, 1 EACH PO BID Prescribed by: MONSE PALACIOS on 09/04/17 0704 Aspirin 81 Mg Tablet.dr, 81 MG PO DAILY, (Reported) Calcium Polycarbophil 625 Mg Tablet, 625 MG PO HS, (Reported) Cholecalciferol (Vitamin D3) 1,000 Unit Capsule, 1,000 UNIT PO HS, (Reported) Clopidogrel Bisulfate 75 Mg Tablet, 75 MG PO DAILY, (Reported) Docusate Sodium 100 Mg Capsule, 100 MG PO DAILY PRN for CONSTIPATION-1ST LINE, ( Reported) Ezetimibe 10 Mg Tablet, 10 MG PO HS, (Reported) Ferrous Sulfate 325 Mg Tablet, 325 MG PO DAILY, (Reported) Hydrocodone Bit/Acetaminophen 1 Each Tablet, 1 TAB PO Q4H PRN for PAIN-MODERATE, (Reported) L. Acidophilus/Dig Enz Cmb 5 1 Each Capsule, 2 CAP PO HS, (Reported) Magnesium Oxide 500 Mg Capsule, 500 MG PO DAILY, (Reported) Rosuvastatin Calcium 10 Mg Tablet, 10 MG PO HS, (Reported) Valsartan 160 Mg Tablet, 160 MG PO BID, (Reported) Vitamin B Complex & Vit C No.4 150 Mg Tablet, 150 MG PO DAILY, (Reported) Patient Home Medication List Home Medication List Reviewed: Yes Review of Systems Review of Systems Constitutional: no symptoms reported, see HPI Genitourinary: see HPI, hematuria All Other Systemes Reviewed Negative Unless Noted: Yes Past Xpungyb-Kfidpp-Exifjy Hx Past Med/Social Hx: Reviewed Nursing Past Med/Soc Hx Patient Social History Alcohol Use: Rarely Uses Recreational Drug Use: No Smoking Status: Current Everyday Smoker Type Used: Cigarettes Recent Foreign Travel: No Contact w/Someone Who Travel: No Recent Infectious Disease Expo: No Recent Hopitalizations: No Immunizations Up To Date Tetanus Booster (TDap): More than 5yrs PED Vaccines UTD: No Past Medical History Surgeries: Yes (BLADDER CA (SURGERY ) ILEAC SURGERY) Bladder Surgery Respiratory: Yes Sleep Apnea Cardiac: Yes High Cholesterol, Hypertension Neurological: No Reproductive Disorders: No Sexually Transmitted Disease: No HIV/AIDS: No Genitourinary: Yes Renal Failure Gastrointestinal: No Musculoskeletal: No Endocrine: No HEENT: No Cancer: Yes Bladder, Prostate What Type of Treatment Did You: Radiation, Surgical Intervention Psychosocial: No Integumentary: No Blood Disorders: No Adverse Reaction/Blood Tranf: No Family Medical History Family history: Cardiovascular disease 19 FATHER, Onset:Unknown Family history: Coronary thrombosis 19 FATHER, Onset:Unknown History of - respiratory disease 19 MOTHER, Onset:Unknown G8 SISTER, Onset:Unknown No Family History of: Abdominal aortic aneurysm Rogerio's disease Alcoholism Aphasia Cancer Cancer of colon Cataract Chest pain Congenital heart disease Congestive heart failure Cystic fibrosis Dementia Dysphagia Family history: Allergy Family history: Alzheimer's disease Family history: Arthritis Family history: Asthma Family history: Breast disease Family history: Diabetes mellitus Family history: Gastrointestinal disease Family history: Glaucoma Family history: Hypertension Family history: Osteoporosis Family history: Thyroid disorder Headache Hearing loss Heart disease Hereditary disease History of - anemia History of - disorder History of drug abuse Human immunodeficiency virus (HIV) seropositivity Hypercholesterolemia Infertile Kidney disease Malignant neoplasm of lung Myocardial infarction Parkinson's disease Prostate cancer Psychotic disorder Seizure disorder Stroke Tuberculosis Visual impairment Physical Exam Vital Signs Vital Signs - First Documented 06/27/19 14:52 Temp 98.2 Pulse 58 Resp 18 B/P (MAP) 191/85 (120) Pulse Ox 98 O2 Delivery Room Air Capillary Refill : Less Than 3 Seconds Height, Weight, BMI Height: 5'9.00" Weight: 195lbs. 7.0oz. [id number]; 29.9 BMI Method:Stated General Appearance: WD/WN, no apparent distress Neck: non-tender, full range of motion, supple, normal inspection Cardiovascular: normal peripheral pulses, regular rate, rhythm Respiratory: chest non-tender, lungs clear, normal breath sounds Gastrointestinal: normal bowel sounds, non tender, soft; No distended, No guarding, No rebound, No tenderness, No mass Back: normal inspection, no CVA tenderness, no vertebral tenderness Extremities: normal range of motion, non-tender, normal inspection, normal capillary refill Neurologic/Psychiatric: no motor/sensory deficits, alert, normal mood/affect, oriented x 3 Skin: normal color, warm/dry Progress/Results/Core Measures Suspected Sepsis Recent Fever Within 48 Hours: No Infection Criteria Present: None New/Unexplained Altered Menta: No Sepsis Screen: No Definite Risk SIRS Temperature:98.2 Pulse: 58 Respiratory Rate: 18 Blood Pressure 191 /85 Mean: 120 Results/Orders Lab Results Laboratory Tests Test 06/27/19 15:14 Range/Units Urine Color YELLOW Urine Clarity SLIGHTLY CLOUDY Urine pH 5 5-9 Urine Specific [place] 1.015 L 1.016-1.022 Urine Protein 2+ H NEGATIVE Urine Glucose (UA) NEGATIVE NEGATIVE Urine Ketones NEGATIVE NEGATIVE Urine Nitrite NEGATIVE NEGATIVE Urine Bilirubin NEGATIVE NEGATIVE Urine Urobilinogen NORMAL NORMAL MG/DL Urine Leukocyte Esterase NEGATIVE NEGATIVE Urine RBC (Auto) 5+ H NEGATIVE Urine RBC TNTC H /HPF Urine WBC NONE /HPF Urine Crystals NONE /LPF Urine Bacteria FEW H /HPF Urine Casts NONE /LPF Urine Mucus NEGATIVE /LPF Urine Culture Indicated NO My Orders Orders - ELIDIA RYAN Ua Culture If Indicated (06/27/19 14:55) Vital Signs/I&O 06/27/19 06/27/19 14:52 16:25 Temp 98.2 98.2 Pulse 58 58 Resp 18 18 B/P (MAP) 191/85 (120) 191/85 (120) Pulse Ox 98 98 O2 Delivery Room Air Capillary Refill : Less Than 3 Seconds Blood Pressure Mean: 120 Departure Impression Primary Impression: Hematuria Qualified Codes: R31.9 - Hematuria, unspecified Disposition: 01 HOME, SELF-CARE Condition: Improved Departure-Patient Inst. Decision time for Depature: 16:20 Referrals: CONSTANTINE YOUNG MD (PCP/Family) Primary Care Physician Patient Instructions: Blood in the Urine (Hematuria), Adult (DC) Add. Discharge Instructions: Increase water intake. Keep your scheduled follow-up appointment with Dr. Humphries. Return to emergency department for new, urgent health care needs. All discharge instructions reviewed with patient and/or family. Voiced understanding. Copy Copies To 1: LUZ HUMPHRIES MD, AMY ARNP Jun 27, 2019 16:23
[2019-06-27 16:25] VITALS: BP 191/85
== END 2019-06-27 16:27 | disposition home or self-care (01) ==
LOC: EDUNIT# 14:49 → ER 14:50
DX: R31.9 Hematuria, unspecified (principal); I10 Essential (primary) hypertension; E78.00 Pure hypercholesterolemia, unspecified; G47.30 Sleep apnea, unspecified; F17.210 Nicotine dependence, cigarettes, uncomplicated; Z85.46 Personal history of malignant neoplasm of prostate; Z85.51 Personal history of malignant neoplasm of bladder; Z88.0 Allergy status to penicillin; Z79.82 Long term (current) use of aspirin; Z79.02 Long term (current) use of antithrombotics/antiplatelets; Z82.49 Family history of ischemic heart disease and other diseases of the circulatory system
CPT/HCPCS: 81000; 99282

== ENCOUNTER → 2019-07-06 | Outpatient (CLI) | payer MEDICARE, OTHER ==
--- NOTE | 2019-07-06 08:55 | Diagnostic Imaging Report ---
PROCEDURE: CT abdomen and pelvis without contrast. TECHNIQUE: Multiple contiguous axial images were obtained through the abdomen and pelvis without the use of intravenous contrast. Auto Exposure Controls were utilized during the CT exam to meet ALARA standards for radiation dose reduction. INDICATION: Hematuria for one week. Patient has history of bladder and prostate carcinoma. Comparison is made with prior CT from 08/20/2017. FINDINGS: The lung bases are clear of acute infiltrates. The liver and gallbladder are unremarkable. No discrete liver mass is detected. There is no biliary ductal dilatation. The pancreas and spleen are unremarkable. No adrenal mass is detected. Right kidney is atrophic. The left kidney is unremarkable. No definite calculi or hydronephrosis is detected. Aorta is nonaneurysmal. There appear to be iliac stents present. The small and large bowel loops are normal caliber. There is no obstruction. There is diverticulosis of the sigmoid colon but no evidence of acute diverticulitis. No bladder calculi are seen. Penile prosthesis is again noted. Prostate contains markers posteriorly. There is no ascites. No inflammatory changes are seen. IMPRESSION: Overall stable CT of the abdomen and pelvis when compared with examination from 08/20/2017. There is colonic diverticulosis without evidence of acute diverticulitis. No urinary tract calculi or obstruction is identified. The appendix is unremarkable. Dictated by: Dictated on workstation # [id number]
== END ==
LOC: RAD 08:19
PROVIDERS: ATTEND Urology
DX: K57.30 Diverticulosis of large intestine without perforation or abscess without bleeding (principal); R31.0 Gross hematuria; Z85.46 Personal history of malignant neoplasm of prostate; Z85.51 Personal history of malignant neoplasm of bladder
CPT/HCPCS: 74176

== ENCOUNTER 2019-07-17 05:48 | Outpatient (CLI) | payer MEDICARE, OTHER ==
[~2019-07-17] VITALS: Ht 172 cm; Wt 88.1 kg
[2019-07-17] MEDS ORDERED: CYAN250010 PO (15:01)
[2019-07-17] MEDS ORDERED: TERA2CAP4 PO (15:01)
[2019-07-17] MEDS ORDERED: HYDR-3924 PO (15:01)
[2019-07-17] MEDS ORDERED: LOSA100T57 PO (15:01)
== END 2019-07-17 15:13 | disposition home or self-care (01) ==
LOC: PREOP 05:48
PROVIDERS: ATTEND Urology
DX: Z01.818 Encounter for other preprocedural examination (principal)

== ENCOUNTER 2019-07-19 08:08 | Day surgery (SDC) | payer MEDICARE, OTHER ==
[2019-07-19] VITALS (8 sets, daily range): BP systolic 104–161; BP diastolic 58–76
[~2019-07-19 08:08] MED LIST changes: +CYAN250010 PO; +HYDR-3924 PO; +LOSA100T57 PO; +TERA2CAP4 PO
[2019-07-19] MEDS ORDERED: LACTATED RINGERS 1,000 ML IV PRN (08:19)
--- NOTE | 2019-07-19 08:33 | Progress Note-Pre Operative ---
Pre-Operative Progress Note H&P Reviewed The H&P was reviewed, patient examined and no changes noted. Date Seen by Provider: Jul 19, 2019 Time Seen by Provider: 08:33 Date H&P Reviewed: Jul 19, 2019 Time H&P Reviewed: 08:33 Pre-Operative Diagnosis: BLADDER TUMORS (SMALL) LUZ HUMPHRIES MD Jul 19, 2019 08:33
[2019-07-19] MEDS ORDERED: MIDAZOLAM 2 MG/2 ML (VERSED) VIAL ONE (09:09)
[2019-07-19] MEDS ORDERED: fentaNYL INJECTION 100 MCG/2 ML AMP ONE (09:09)
[2019-07-19] MEDS ORDERED: SEVOFLURANE (ULTANE) 15 ML INHAL SOLN ONE (09:17)
[2019-07-19] MEDS ORDERED: proPOfol 200 MG/20 ML (DIPRIVAN) VIAL IV ONE (09:17)
[2019-07-19] MEDS ORDERED: LIDOCAINE PF 2% 5 ML (XYLOCAINE) VIAL ONE (09:17)
[2019-07-19] MEDS ORDERED: ONDANSETRON 4 MG/2 ML (SDV) Z0FRAN ONE (09:17)
[2019-07-19] MEDS ORDERED: DEXAMETHASONE 10 MG/ML (DECADRON) 1 ML VIAL ONE (09:17)
--- NOTE | 2019-07-19 09:23 | Progress Note-Post Operative ---
Post-Operative Progess Note Surgeon (s)/Lithographic Plate Maker (s) Surgeon LUZ HUMPHRIES MD Lithographic Plate Maker: NONE Pre-Operative Diagnosis BLADDER TUMORS (SMALL) (FLOOR) Post-Operative Diagnosis SAME Procedure & Operative Findings Date of Procedure 07/19/19 Procedure Performed/Findings TURBT'S Anesthesia Type GENERAL Estimated Blood Loss Estimated blood loss (mL): NEGLIGIBLE Specimens/Packing Specimens Removed BLADDER TUMOR AND BASE Packing: NONE LUZ HUMPHRIES MD Jul 19, 2019 09:23
--- NOTE | 2019-07-19 09:25 | Discharge Inst-Urology ---
Discharge Inst-Urology Reconcile Patient Problems Problems Reviewed?: Yes Patient Instructions/Follow Up Plan/Assessment/Instructions Please make appointment to been seen in office in 2 weeks. In 48 hours, if no bleeding, may resume ASA and Plavix Increase oral fluids for 48 hours and then as needed. Diet and Activity as tolerated. If questions or concerns contact your physician Or seek help at emergency department. LUZ HUMPHRIES MD Jul 19, 2019 09:25
[2019-07-19] MEDS: cefTRIAXone FOR IV USE 1,000 MG in WATER (STERILE) FOR INJECTION 10 ML IV ONE ×2 (09:45→11:00)
[2019-07-19] MEDS ORDERED: morphine INJ 10 MG/ML 1ML (SYR OR VIAL) IVP ONE (10:30)
[2019-07-19] MEDS ORDERED: fentaNYL INJECTION 100 MCG/2 ML AMP IVP ONE (10:30)
[2019-07-19] MEDS ORDERED: ONDANSETRON 4 MG/2 ML (SDV) Z0FRAN IVP PRN (10:30)
[2019-07-19] MEDS ORDERED: SULF1TAB35 PO (10:53)
[2019-07-19] MEDS ORDERED: PHEN-640 PO (10:53)
--- NOTE | 2019-07-19 15:11 | Anesthesia-General Post-Op ---
General Patient Condition Mental Status/LOC: Same as Preop Cardiovascular: Satisfactory Nausea/Vomiting: Absent Respiratory: Satisfactory Pain: Controlled Complications: Absent Post Op Complications Complications None Follow Up Care/Instructions Patient Instructions None needed. Anesthesia/Patient Condition Patient Condition Patient was seen this morning after the procedure and he was doing well, no complaints, stable vital signs, no apparent adverse anesthesia problems. MAGGI REYNAGA DO Jul 19, 2019 15:11
--- NOTE | 2019-07-19 15:39 | OPERATIVE REPORT ---
DATE OF SERVICE: 07/19/2019 PREOPERATIVE DIAGNOSIS: Bladder tumors "small." POSTOPERATIVE DIAGNOSIS: Bladder tumors "small." OPERATION PERFORMED: Transurethral resection of bladder tumor. SURGEON: Luz Humphries MD ANESTHESIA: General. COMPLICATIONS: None. DESCRIPTION OF PROCEDURE: Under satisfactory general anesthesia, the patient in lithotomy position, genitalia were prepped and draped in the usual sterile fashion. Urethra was dilated with Main sound to accommodate 27-[place] Byrne resectoscope. Again, visualized the very superficial bladder tumor posterior wall that was cauterized and the bigger one was resected completely with the base sent to pathology. Bleeders were cauterized. After hemostasis was complete, there was no further bladder tumor. Ureteric orifices were intact with clear effluxes. The bladder was evacuated. The resectoscope was removed. The patient tolerated the procedure and anesthesia well and was sent to recovery room in stable condition. Instructions were given to his . Job ID: [id number] DocumentID: [id number] Dictated Date: 07/19/2019 10:16:34 Patching Machine Operator Date: 07/19/2019 15:39:00 Dictated By: LUZ HUMPHRIES MD
== END 2019-07-19 11:40 | disposition home or self-care (01) ==
LOC: SDC 08:08
PROVIDERS: ATTEND Urology
DX: C67.9 Malignant neoplasm of bladder, unspecified (principal); N40.0 Benign prostatic hyperplasia without lower urinary tract symptoms; K21.9 Gastro-esophageal reflux disease without esophagitis; M19.90 Unspecified osteoarthritis, unspecified site; I73.9 Peripheral vascular disease, unspecified; M06.9 Rheumatoid arthritis, unspecified; I10 Essential (primary) hypertension; F17.210 Nicotine dependence, cigarettes, uncomplicated; Z79.899 Other long term (current) drug therapy; Z88.0 Allergy status to penicillin; Z79.82 Long term (current) use of aspirin; Z79.02 Long term (current) use of antithrombotics/antiplatelets
CPT/HCPCS: 87081; 88307

== ENCOUNTER 2019-08-17 17:30 | Observation (INO) | payer MEDICARE, OTHER ==
[~2019-08-17] VITALS: Ht 172.7 cm; Wt 86.8 kg
[~2019-08-17 17:30] MED LIST changes: +PHEN-640 PO; +SULF1TAB35 PO
[2019-08-17 18:13] LABS: BILIRUBIN,URINE NEGATIVE (NEGATIVE); CLARITY,URINE BLOODY; COLOR,URINE RED; GLUCOSE, URINE (UA) NEGATIVE (NEGATIVE); KETONES,URINE 1+ (NEGATIVE); LEUKOCYTE ESTERASE ,URINE NEGATIVE (NEGATIVE); NITRITE,URINE NEGATIVE (NEGATIVE); PH,URINE 8 (5-9); PROTEIN,URINE 4+ (NEGATIVE)
[2019-08-17 18:18] LABS: BACTERIA,URINE NEGATIVE /HPF; RBC,URINE TNTC /HPF; WBC,URINE 0-2 /HPF
[2019-08-17 18:46] LABS: BASOPHILS % (AUTO) 0 % (0-10); EOSINOPHILS # (AUTO) 0.3 10^3/uL (0.0-0.3); EOSINOPHILS % (AUTO) 3 % (0-10); HEMATOCRIT 45 % (40-54); HEMOGLOBIN 15.4 G/DL (13.3-17.7); LYMPHOCYTES # (AUTO) 2.3 X 10^3 (1.0-4.0); LYMPHOCYTES % (AUTO) 21 % (12-44); MEAN CORPUSCULAR HEMOGLOBIN 30 PG (25-34); MEAN CORPUSCULAR HGB CONC 35 G/DL (32-36); MEAN CORPUSCULAR VOLUME 88 FL (80-99); MEAN PLATELET VOLUME 9.4 FL (7.4-10.4); MONOCYTES # (AUTO) 1.1 X 10^3 (0.0-1.0); MONOCYTES % (AUTO) 10 % (0-12); NEUTROPHILS # (AUTO) 7.2 X 10^3 (1.8-7.8); NEUTROPHILS % (AUTO) 66 % (42-75); PLATELET COUNT 244 10^3/uL (130-400); RED CELL DISTRIBUTION WIDTH 16.7 % (10.0-14.5); WHITE BLOOD COUNT 10.9 10^3/uL (4.3-11.0)
--- NOTE | 2019-08-17 18:54 | Diagnostic Imaging Report ---
Indication: Hematuria, bladder cancer KUB There are bilateral iliac stents. Bowel gas pattern is normal. There are no pathologic masses or calcifications. There is a penile expansion device. There are no calculi seen. IMPRESSION: No acute abnormalities in the abdomen Dictated by: Dictated on workstation # [id number]
--- NOTE | 2019-08-17 18:59 | Diagnostic Imaging Report ---
PROCEDURE: CT urinary tract, rule out kidney stone. TECHNIQUE: Multiple contiguous axial images were obtained through the abdomen and pelvis without the use of intravenous contrast. Auto Exposure Controls were utilized during the CT exam to meet ALARA standards for radiation dose reduction. INDICATION: Hematuria Lung bases are clear. Liver appears normal. Gallbladder is present. Pancreas is normal. Spleen is not enlarged. Adrenals are normal. There is some perinephric edema around both kidneys. Left kidney is normal size. The right kidney is atrophied. There is no renal calculus. There is no hydronephrosis. Some calcific atherosclerosis of the aorta. There are kissing iliac artery stents. Small bowel is not dilated. There is diverticulosis of the colon without evidence of diverticulitis. The appendix is normal. There is some dense layering fluid in the dependent portion the urinary bladder which is probably blood. Urinary bladder itself appears grossly normal. Prostate is not enlarged. Patient has a penile implant. IMPRESSION: Atrophy of the right kidney. No acute abnormality seen in the left kidney. There appears to be some blood in the urinary bladder. Patient has uncomplicated diverticulosis of the colon Dictated by: Dictated on workstation # [id number]
[2019-08-17 19:03] LABS: PROTHROMBIN TIME PATIENT 13.3 SEC (12.2-14.7)
[2019-08-17 19:09] LABS: ALANINE AMINOTRANSFERASE 21 U/L (0-55); ALBUMIN 4.6 GM/DL (3.2-4.5); ALKALINE PHOSPHATASE 97 U/L (40-136); BILIRUBIN,TOTAL 0.3 MG/DL (0.1-1.0); BUN/CREATININE RATIO 14; CALCIUM 9.4 MG/DL (8.5-10.1); CARBON DIOXIDE 20 MMOL/L (21-32); CHLORIDE 107 MMOL/L (98-107); CREATININE SERUM 1.58 MG/DL (0.60-1.30); GFR ESTIMATED 44; GLUCOSE 81 MG/DL (70-105); SODIUM 139 MMOL/L (135-145); TOTAL PROTEIN 7.4 GM/DL (6.4-8.2)
[2019-08-17] MEDS ORDERED: NS IV 1000 ML 1,000 ML IV ONE (19:34)
--- NOTE | 2019-08-17 19:37 | ED GU-Male ---
General Chief Complaint: - Urinary Stated Complaint: BLOOD IN URINE Nursing Triage Note: PT AMB TO TRIAGE WITH COMPLAINT OF BLOOD IN URINE. PT STATES HE STARTED URINATING BLOOD THIS MORNING. AND STATES HE HAS 3-4 CLOTS EVERYTIME. PT STATES HE HAD LESIONS REMOVED FROM HIS BLADDER 3 WEEKS AGO. STATES BLEEDING STOPPED POST SURGERY AND RESTARTED TODAY. Source: patient, spouse History of Present Illness Date Seen by Provider: Aug 17, 2019 Time Seen by Provider: 18:10 Initial Comments PT ARRIVES VIA POV FROM HOME STATES HE HAD BLADDER TUMORS REMOVED BY DR. HUMPHRIES 3 WEEKS AGO--CANCEROUS. PT WAS DX WITH BLADDER CANCER A FEW YEARS AGO, AND HAD SURGERY, NOW HAS HAD A RECURRENCE. STATES HE HAD SOME BLEEDING AND SOME CLOTS POST OP, BUT IT STOPPED AND HE WAS NOT HAVING PROBLEMS PT IS ON PLAVIX AND ASPIRIN, WHICH HE HELD PRIOR TO SURGERY, AND RESTARTED 2 DAYS AFTER SURGERY PT STATES HE BEGAN PASSING BLOOD AND CLOTS THIS AM, THEN IT GOT BETTER, THEN RETURNED AROUND 1500 TODAY. STILL PASSING LARGE CLOTS C/O ABDOMINAL PRESSURE UNTIL HE PASSES THE CLOTS NO BURNING ON URINATION NO BACK PAIN NO FEVER NO NAUSEA/VOMITING HERE 06/27/19 FOR ONGOING HEMATURIA FOR 3 DAYS HAD SURGERY 07/19/19 Allergies and Home Medications Allergies Coded Allergies: Penicillins (Verified Adverse Reaction, Mild, ORAL THRUSH, 07/17/19) Oral thrush Home Medications Amlodipine Besylate 10 Mg Tablet, 10 MG PO HS, (Reported) Calcium Polycarbophil 625 Mg Tablet, 625 MG PO HS, (Reported) Cyanocobalamin (Vitamin B-12) 2,500 Mcg Tablet, 2,500 MCG PO DAILY, (Reported) Ezetimibe 10 Mg Tablet, 10 MG PO HS, (Reported) Hydralazine HCl 50 Mg Tablet, 50 MG PO PRN, (Reported) L. Acidophilus/Dig Enz Cmb 5 1 Each Capsule, 2 CAP PO HS, (Reported) Losartan Potassium 100 Mg Tablet, 100 MG PO DAILY, (Reported) Magnesium Oxide 500 Mg Capsule, 500 MG PO DAILY, (Reported) Phenazopyridine HCl 200 Mg Tablet, 1 TAB PO TID Prescribed by: MARILOU PRICE on 07/19/19 1053 Rosuvastatin Calcium 10 Mg Tablet, 10 MG PO HS, (Reported) Sulfamethoxazole/Trimethoprim 1 Each Tablet, 1 EACH PO BID Prescribed by: MARILOU PRICE on 07/19/19 1053 Sulfamethoxazole/Trimethoprim 1 Each Tablet, 1 EACH PO BID Prescribed by: CALEB DONAHUE on 08/18/19 0337 Terazosin HCl 2 Mg Capsule, 2 MG PO DAILY, (Reported) Patient Home Medication List Home Medication List Reviewed: Yes Review of Systems Review of Systems Constitutional: no symptoms reported; No chills, No diaphoresis, No dizziness, No fever Respiratory: no symptoms reported Cardiovascular: no symptoms reported Gastrointestinal: no symptoms reported; No nausea, No vomiting Genitourinary: see HPI; denies burning, denies dysuria, denies flank pain; hematuria; denies incontinence Musculoskeletal: no symptoms reported; No back pain Skin: no symptoms reported Psychiatric/Neurological: No Symptoms Reported Endocrine: No Symptoms Reported Hematologic/Lymphatic: See HPI Past Bntgwvi-Obsfew-Dzqhph Hx Patient Social History Alcohol Use: Occasionally Uses Recreational Drug Use: Yes (SMOKE 2 PACK PER DAY) Smoking Status: Current Everyday Smoker (SMOKES 2 PPD) Type Used: Cigarettes (SMOKES 2 PPD) 2nd Hand Smoke Exposure: Yes Recent Foreign Travel: No Contact w/Someone Who Travel: No Recent Infectious Disease Expo: No Recent Hopitalizations: No Physical Abuse: No Sexual Abuse: No Mistreated: No Fear: No Immunizations Up To Date Tetanus Booster (TDap): More than 5yrs PED Vaccines UTD: No Date of Influenza Vaccine: Aug 07, 2018 Seasonal Allergies Seasonal Allergies: Yes Past Medical History Surgeries: Yes (TURBT X 2 SURGERIES--LAST ONE 07/19/[address] HUMPHRIES; ANAL FISTULA/FISSURE REPAIR; RUPTURED APPENDIX REMOVED; LEFT KNEE SURGERY; LEFT SHOULDER SURGERY; ILIAC ARTERY STENTS) Abdominal, Bladder Surgery, Gallbladder, Orthopedic, Penile Implant, Rectal, Vascular Surgery Respiratory: Yes Sleep Apnea Currently Using CPAP: Yes Cardiac: Yes (ILIAC ARTERY STENTS) High Cholesterol, Hypertension, Peripheral Vascular Neurological: No Reproductive Disorders: Yes (E.D.) Sexually Transmitted Disease: No HIV/AIDS: No Genitourinary: Yes (BLADDER CANCER--TURBT X 2--LAST ONE 07/19/[address] HUMPHRIES. PENILE IMPLANT; ) Prostate Problems, Renal Failure Gastrointestinal: Yes (S/P CHOLECYSTECTOMY; ANAL FISTULA/FISSURE REPAIR; RUPTURED APPENDIX REMOVED) Gastroesophageal Reflux, Gall Bladder Disease Musculoskeletal: Yes (LEFT SHOULDER SURGERY; LEFT KNEE SURGERY) Arthritis, Chronic Back Pain Endocrine: No HEENT: No (GLASSES) Loss of Vision: Denies Hearing Impairment: Denies Cancer: Yes Bladder, Prostate Did You Recieve Any Treatments: Yes (TURBT X 2--LAST ONE 07/19/[address] HUMPHRIES) What Type of Treatment Did You: Radiation, Surgical Intervention Psychosocial: No Integumentary: No Blood Disorders: No Adverse Reaction/Blood Tranf: No (HAS HAD BLOOD WITH NO REACTION) Family Medical History Family history: Cardiovascular disease 19 FATHER, Onset:Unknown Family history: Coronary thrombosis 19 FATHER, Onset:Unknown History of - respiratory disease 19 MOTHER, Onset:Unknown G8 SISTER, Onset:Unknown No Family History of: Abdominal aortic aneurysm [place]un[place]'s disease Alcoholism Aphasia Cancer Cancer of colon Cataract Chest pain Congenital heart disease Congestive heart failure Cystic fibrosis Dementia Dysphagia Family history: Allergy Family history: Alzheimer's disease Family history: Arthritis Family history: Asthma Family history: Breast disease Family history: Diabetes mellitus Family history: Gastrointestinal disease Family history: Glaucoma Family history: Hypertension Family history: Osteoporosis Family history: Thyroid disorder Headache Hearing loss Heart disease Hereditary disease History of - anemia History of - disorder History of drug abuse Human immunodeficiency virus (HIV) seropositivity Hypercholesterolemia Infertile Kidney disease Malignant neoplasm of lung Myocardial infarction Parkinson's disease Prostate cancer Psychotic disorder Seizure disorder Stroke Tuberculosis Visual impairment Physical Exam Vital Signs Vital Signs - First Documented 08/17/19 17:48 Pulse 59 Resp 16 B/P (MAP) 185/74 (111) Pulse Ox 97 O2 Delivery Room Air Capillary Refill : Less Than 3 Seconds Height, Weight, BMI Height: 5'9.00" Weight: 195lbs. 7.0oz. 88.449025lc; 29.00 BMI Method:Stated General Appearance: WD/WN, no apparent distress, other (ANXIOUS) Cardiovascular: normal peripheral pulses, regular rate, rhythm, no edema, no JVD, no murmur Respiratory: normal breath sounds, no respiratory distress, no accessory muscle use Gastrointestinal: normal bowel sounds, non tender, soft Genital/Rectal: other (GROSS HEMATURIA/GROSS BLOOD WITH OUT URINE ) Back: no CVA tenderness Extremities: normal inspection, no pedal edema Neurologic/Psychiatric: dialysis technician II-XII nml as tested, no motor/sensory deficits, alert, oriented x 3 Skin: normal color, warm/dry Progress/Results/Core Measures Suspected Sepsis Recent Fever Within 48 Hours: No Infection Criteria Present: None New/Unexplained Altered Menta: No Sepsis Screen: No Definite Risk SIRS Temperature: Pulse: 59 Respiratory Rate: 16 Laboratory Tests 08/17/19 18:39: White Blood Count 10.9 08/18/19 01:45: White Blood Count 10.8 Blood Pressure 185 /74 Mean: 111 Laboratory Tests 08/17/19 18:39: Creatinine 1.58H, INR Comment 1.0, Platelet Count 244, Total Bilirubin 0.3 08/18/19 01:45: Platelet Count 226 Results/Orders Lab Results Laboratory Tests Test 08/17/19 17:53 08/17/19 18:39 08/18/19 01:45 Range/Units Urine Color RED H Urine Clarity BLOODY H Urine pH 8 5-9 Urine Specific [place] 1.015 L 1.016-1.022 Urine Protein 4+ NEGATIVE Urine Glucose (UA) NEGATIVE NEGATIVE Urine Ketones 1+ H NEGATIVE Urine Nitrite NEGATIVE NEGATIVE Urine Bilirubin NEGATIVE NEGATIVE Urine Urobilinogen 4 H NORMAL MG/DL Urine Leukocyte Esterase NEGATIVE NEGATIVE Urine RBC (Auto) 4+ H NEGATIVE Urine RBC TNTC H /HPF Urine WBC 0-2 /HPF Urine Crystals NONE /LPF Urine Bacteria NEGATIVE /HPF Urine Casts NONE /LPF Urine Mucus NEGATIVE /LPF Urine Culture Indicated NO White Blood Count 10.9 10.8 4.3-11.0 10^3/uL Red Blood Count 5.11 4.51 4.35-5.85 10^6/uL Hemoglobin 15.4 13.4 13.3-17.7 G/DL Hematocrit 45 40 40-54 % Mean Corpuscular Volume 88 88 80-99 FL Mean Corpuscular Hemoglobin 30 30 25-34 PG Mean Corpuscular Hemoglobin Concent 35 34 32-36 G/DL Red Cell Distribution Width 16.7 H 16.1 H 10.0-14.5 % Platelet Count 244 226 130-400 10^3/uL Mean Platelet Volume 9.4 9.4 7.4-10.4 FL Neutrophils (%) (Auto) 66 42-75 % Lymphocytes (%) (Auto) 21 12-44 % Monocytes (%) (Auto) 10 0-12 % Eosinophils (%) (Auto) 3 0-10 % Basophils (%) (Auto) 0 0-10 % Neutrophils # (Auto) 7.2 1.8-7.8 X 10^3 Lymphocytes # (Auto) 2.3 1.0-4.0 X 10^3 Monocytes # (Auto) 1.1 H 0.0-1.0 X 10^3 Eosinophils # (Auto) 0.3 0.0-0.3 10^3/uL Basophils # (Auto) 0.0 0.0-0.1 10^3/uL Prothrombin Time 13.3 12.2-14.7 SEC INR Comment 1.0 0.8-1.4 Activated Partial Thromboplast Time 41 H 24-35 SEC Sodium Level 139 135-145 MMOL/L Potassium Level 4.0 3.6-5.0 MMOL/L Chloride Level 107 98-107 MMOL/L Carbon Dioxide Level 20 L 21-32 MMOL/L Anion Gap 12 5-14 MMOL/L Blood Urea Nitrogen 22 H 7-18 MG/DL Creatinine 1.58 H 0.60-1.30 MG/DL Estimat Glomerular Filtration Rate 44 BUN/Creatinine Ratio 14 Glucose Level 81 70-105 MG/DL Calcium Level 9.4 8.5-10.1 MG/DL Corrected Calcium 8.5-10.1 MG/DL Total Bilirubin 0.3 0.1-1.0 MG/DL Aspartate Amino Transf (AST/SGOT) 18 5-34 U/L Alanine Aminotransferase (ALT/SGPT) 21 0-55 U/L Alkaline Phosphatase 97 40-136 U/L Total Protein 7.4 6.4-8.2 GM/DL Albumin 4.6 H 3.2-4.5 GM/DL My Orders Orders - CALEB DONAHUE DO Ed Iv/Invasive Line Start (08/17/19 18:15) Cbc With Automated Diff (08/17/19 18:15) Comprehensive Metabolic Panel (08/17/19 18:15) Protime With Inr (08/17/19 18:15) Partial Thromboplastin Time (08/17/19 18:15) Abdomen/Kub 1[place] (08/17/19 18:15) Ct Abd/Pelvis Wo(Kidney Stone) (08/17/19 18:15) Ed Iv/Invasive Line Start (08/17/19 19:34) Ns Iv 1000 Ml (Sodium Chloride 0.9%) (08/17/19 19:34) Catheter(Urinary) Insert & Ass 03,15 (08/17/19 20:33) Lidocaine 2% (Urojet) (Xylocaine Urojet) (08/17/19 20:45) Continuous Bladder Irrigation (08/17/19 20:40) Ed Iv/Invasive Line Start (08/17/19 21:22) Lactated Ringers (Lr 1000 Ml Iv Solution (08/17/19 21:22) Cbc No Diff (08/18/19 01:08) Medications Given in ED Current Medications Medications Dose Ordered Sig/Markus Route Start Time Stop Time Status Last Admin Dose Admin Lactated Ringer's 1,000 ml @ 0 mls/hr Q0M ONCE IV 08/17/19 21:22 08/17/19 21:23 DC 08/17/19 21:53 0 MLS/HR Lidocaine HCl 10 ml ONCE ONCE TOP 08/17/19 20:45 08/17/19 20:46 DC 08/17/19 20:42 10 ML Sodium Chloride 1,000 ml @ 0 mls/hr Q0M ONCE IV 08/17/19 19:34 08/17/19 19:35 DC 08/17/19 19:40 0 MLS/HR Vital Signs/I&O 08/17/19 17:48 Pulse 59 Resp 16 B/P (MAP) 185/74 (111) Pulse Ox 97 O2 Delivery Room Air 08/18/19 00:00 Intake Total 2000 ml Balance 2000 ml Capillary Refill : Less Than 3 Seconds Blood Pressure Mean: 111 Progress Note : Progress Note PLACED 3 WAY CATHETER AND CONTINUOUS BLADDER IRRIGATION INITIATED, PT WAS UNABLE TO URINATE DUE TO CLOTS PT IN ER FOR OVER 11 HOURS, WITH NO REDUCTION IN CLOTS, AND NEEDING FREQUENT FLUSHING OF CATHETER TO REMOVE CLOTS. PT DOES NOT FEEL COMFORTABLE GOING HOME, AND IS RELUCTANT TO GO TO ANOTHER FACILITY WITH UROLOGY SERVICES, AT THIS TIME. Diagnostic Imaging Comments CT ABDOMEN/PELVIS--ATROPHIC RIGHT KIDNEY. LAYERING OF BLOOD IN BLADDER. PER RADIOLOGIST REPORT AT 1901 Reviewed: Reviewed by Me Departure Communication (Admissions) 1906--SPOKE WITH DR. HUMPHRIES ( NOT AVAILABLE TO ADMIT PT'S THIS WEEKEND ) HE ADVISES TO SEND PT HOME, INCREASE FLUIDS, STOP ASPIRIN AND PLAVIX, GIVE A LITER OF IV FLUIDS HERE, AND HE WILL SEE IN OFFICE IN 2-3 DAYS. HE ADVISES THAT PT RETURN IF HE IS UNABLE TO VOID, DUE TO CLOTS PRIOR TO PT BEING DISMISSED, PT NOW UNABLE TO VOID, DESPITE MULTIPLE ATTEMPTS [address] CATHETER PLACED, WITH IMMEDIATE RETURN OF > 750 ML URINE, WITH LARGE CLOTS AFTER EXHAUSTIVE ATTEMPTS TO CLEAR CLOTS WITH CONTINUOUS BLADDER IRRIGATION, WITHOUT SUCCESS, DR. BILLS, GENERAL SURGEON, WAS CONTACTED AT 0345--HE AGREES TO ADMIT FOR CBI. WILL CONTINUE TO HOLD ASPIRIN AND PLAVIX. Impression Primary Impression: Hematuria Additional Impressions: S/P RECENT TURBT ANTICOAGULATION THERAPY Disposition: ADMITTED INPATIENT Condition: Stable Departure-Patient Inst. Referrals: CONSTANTINE YOUNG MD (PCP/Family) Primary Care Physician LUZ HUMPHRIES MD Add. Discharge Instructions: All discharge instructions reviewed with patient and/or family. Voiced understanding. Scripts Sulfamethoxazole/Trimethoprim (Bactrim Ds Tablet) 1 Each Tablet 1 EACH PO BID, #20 TAB Prov: CALEB DONAHUE DO 08/18/19 CALEB DONAHUE DO Aug 17, 2019 19:37
--- NOTE | 2019-08-17 20:22 | NUR ---
Pt reports to this RN, inability in initiate urinary stream. Provider notified.
[2019-08-17] MEDS ORDERED: LIDOCAINE UROJET 2% GEL 10 ML PKG TOP ONE (20:45)
[2019-08-17] MEDS ORDERED: LACTATED RINGERS 1,000 ML IV ONE (21:22)
[2019-08-18 01:56] LABS: HEMOGLOBIN 13.4 G/DL (13.3-17.7); MEAN PLATELET VOLUME 9.4 FL (7.4-10.4); RED CELL DISTRIBUTION WIDTH 16.1 % (10.0-14.5); WHITE BLOOD COUNT 10.8 10^3/uL (4.3-11.0)
[2019-08-18] MEDS ORDERED: SULF1TAB35 PO (03:37)
[2019-08-18] MEDS ORDERED: LIDOCAINE UROJET 2% GEL 10 ML PKG TOP ONE ×2 (05:00→19:45)
--- NOTE | 2019-08-18 05:00 | NUR ---
Total bladder intake 12L Sterile water continuous catheter irrigation intake. 3L NS continuous catheter irrigation intake. Total bladder output 1700ml (continous blood tinged with dark red clots) Intermittent manual bladder irrigation with sterile water.
--- NOTE | 2019-08-18 05:10 | NUR ---
CHERYL DIMAS admitted to room 422-1, with an admitting diagnosis of S/P TURBT; GROSS HEMATURIA WITH CLOTS/ OUTLET OBSTRUCTION. PLAVIX & ASA THERAPY, on 08/18/19 from ED via BED, accompanied by ED STAFF.CHERYL DIMAS introduced to surroundings, call light, bed controls, phone, TV, temperature control, lights, meal times, smoking policy, visitor policy, side rail policy, bathrooms and showers. Patient Rights given to patient in the handbook.CHERYL DIMAS verbalizes understanding that [facility] is not responsible for the loss or damage to any personal effects or valuables that are kept in the patients posession during their hospitalization.
[2019-08-18 05:30] VITALS: BP_SYST 180; BP_DIAS 78; BP_DIAS 87
[2019-08-18 06:00] VITALS: BP 180/78
[2019-08-18 06:16] LABS: BASOPHILS % (AUTO) 0 % (0-10); EOSINOPHILS # (AUTO) 0.1 10^3/uL (0.0-0.3); EOSINOPHILS % (AUTO) 1 % (0-10); HEMATOCRIT 40 % (40-54); HEMOGLOBIN 13.8 G/DL (13.3-17.7); LYMPHOCYTES # (AUTO) 1.1 X 10^3 (1.0-4.0); LYMPHOCYTES % (AUTO) 7 % (12-44); MEAN CORPUSCULAR HEMOGLOBIN 30 PG (25-34); MEAN CORPUSCULAR HGB CONC 35 G/DL (32-36); MEAN CORPUSCULAR VOLUME 87 FL (80-99); MEAN PLATELET VOLUME 9.5 FL (7.4-10.4); MONOCYTES # (AUTO) 0.9 X 10^3 (0.0-1.0); MONOCYTES % (AUTO) 6 % (0-12); NEUTROPHILS # (AUTO) 13.8 X 10^3 (1.8-7.8); NEUTROPHILS % (AUTO) 86 % (42-75); PLATELET COUNT 242 10^3/uL (130-400); RED CELL DISTRIBUTION WIDTH 16.3 % (10.0-14.5); WHITE BLOOD COUNT 15.9 10^3/uL (4.3-11.0)
[2019-08-18] MEDS: 1/2 NS IV SOLUTION 1,000 ML IV SCH ×3 (06:18→22:11)
[2019-08-18 06:27] LABS: PROTHROMBIN TIME PATIENT 13.5 SEC (12.2-14.7)
[2019-08-18 06:33] LABS: ALBUMIN 4.3 GM/DL (3.2-4.5); BILIRUBIN,TOTAL 0.5 MG/DL (0.1-1.0); CALCIUM 8.6 MG/DL (8.5-10.1); CREATININE SERUM 1.4 MG/DL (0.60-1.30); POTASSIUM 3.8 MMOL/L (3.6-5.0); TOTAL PROTEIN 6.7 GM/DL (6.4-8.2)
[2019-08-18 06:54] LABS: BAND NEUTROPHILS 4 %; LYMPHOCYTES % (MANUAL) 7 %; MONOCYTES % (MANUAL) 5 %; NEUTROPHILS % (MANUAL) 84 %; RBC MORPH NORMAL
[2019-08-18] MEDS: TRIM/SULFAMETH 160/800 (SEPTRA DS) TAB PO SCH ×2 (07:06→19:41)
--- NOTE | 2019-08-18 09:52 | History & Physical-Surgical ---
History of Present Illness History of Present Illness Reason for visit/HPI Surgery asked to admit pt for Urology. HPI per ED: PT ARRIVES VIA POV FROM HOME, STATES HE HAD BLADDER TUMORS REMOVED BY DR. HUMPHRIES 3 WEEKS AGO--CANCEROUS. PT WAS DX WITH BLADDER CANCER A FEW YEARS AGO, AND HAD SURGERY, NOW HAS HAD A RECURRENCE. STATES HE HAD SOME BLEEDING AND SOME CLOTS POST OP, BUT IT STOPPED AND HE WAS NOT HAVING PROBLEMS PT IS ON PLAVIX AND ASPIRIN, WHICH HE HELD PRIOR TO SURGERY, AND RESTARTED 2 DAYS AFTER SURGERY PT STATES HE BEGAN PASSING BLOOD AND CLOTS THIS AM, THEN IT GOT BETTER, THEN RETURNED AROUND 1500 TODAY. STILL PASSING LARGE CLOTS C/O ABDOMINAL PRESSURE UNTIL HE PASSES THE CLOTS,NO BURNING ON URINATION, NO BACK PAIN, NO FEVER, NO NAUSEA/VOMITING When I spoke to pt this am he stated that twice when he peed yesterday he saw "a few clots", but then around 5pm couldn't pee and decided to go to ER. In the ER last night he was on continuous bladder irrigation and continued to get blood and clots out, so I was asked to admit. Pt this am was thankful for being admitted "thanks for letting me stay". He did not take plavix yesterday. He states he has no pain, just feels like his bladder "swells up". Date of Admission Aug 18, 2019 at 03:45 Time Seen by a Provider: 09:16 I consulted on this patient on 08/18/19 09:47 Attending Physician Fabio Bills DO Admitting Physician Johan Venegas MD Consult Allergies and Home Medications Allergies Coded Allergies: Penicillins (Verified Adverse Reaction, Mild, ORAL THRUSH, 07/17/19) Oral thrush Home Medications Amlodipine Besylate 10 Mg Tablet, 10 MG PO HS, (Reported) Calcium Polycarbophil 625 Mg Tablet, 625 MG PO HS, (Reported) Cyanocobalamin (Vitamin B-12) 2,500 Mcg Tablet, 2,500 MCG PO DAILY, (Reported) Ezetimibe 10 Mg Tablet, 10 MG PO HS, (Reported) Hydralazine HCl 50 Mg Tablet, 50 MG PO PRN, (Reported) L. Acidophilus/Dig Enz Cmb 5 1 Each Capsule, 2 CAP PO HS, (Reported) Losartan Potassium 100 Mg Tablet, 100 MG PO DAILY, (Reported) Magnesium Oxide 500 Mg Capsule, 500 MG PO DAILY, (Reported) Phenazopyridine HCl 200 Mg Tablet, 1 TAB PO TID Prescribed by: MARILUO PRICE on 07/19/19 1053 Rosuvastatin Calcium 10 Mg Tablet, 10 MG PO HS, (Reported) Sulfamethoxazole/Trimethoprim 1 Each Tablet, 1 EACH PO BID Prescribed by: MARILOU PRICE on 07/19/19 1053 Sulfamethoxazole/Trimethoprim 1 Each Tablet, 1 EACH PO BID Prescribed by: CALEB DONAHUE on 08/18/19 0337 Terazosin HCl 2 Mg Capsule, 2 MG PO DAILY, (Reported) Patient Home Medication List Home Medication List Reviewed: Yes Past Aagwlrb-Eoggkr-Wdbiyx Hx Patient Social History Alcohol Use: Occasionally Uses Recreational Drug Use: Yes (SMOKE 2 PACK PER DAY) Smoking Status: Current Everyday Smoker (SMOKES 2 PPD) Type Used: Cigarettes (SMOKES 2 PPD) 2nd Hand Smoke Exposure: Yes Recent Foreign Travel: No Contact w/Someone Who Travel: No Recent Infectious Disease Expo: No Recent Hopitalizations: No Physical Abuse Screen: No Sexual Abuse: No Immunizations Up To Date Tetanus Booster (TDap): More than 5yrs PED Vaccines UTD: No Date of Pneumonia Vaccine: Aug 29, 2018 Date of Influenza Vaccine: Aug 07, 2018 Seasonal Allergies Seasonal Allergies: Yes Surgeries History of Surgeries: Yes (TURBT X 2 SURGERIES--LAST ONE 07/19/[address] HUMPHRIES; ANAL FISTULA/FISSURE REPAIR; RUPTURED APPENDIX REMOVED; LEFT KNEE SURGERY; LEFT SHOULDER SURGERY; ILIAC ARTERY STENTS) Surgeries: Abdominal, Bladder Surgery, Gallbladder, Orthopedic, Penile Implant, Rectal, Vascular Surgery Respiratory History of Respiratory Disorde: Yes Respiratory Disorders: Sleep Apnea Cardiovascular History of Cardiac Disorders: Yes (ILIAC ARTERY STENTS) Cardiac Disorders: High Cholesterol, Hypertension, Peripheral Vascular Neurological History of Neurological Disord: No Reproductive System Hx Reproductive Disorders: Yes (E.D.) Sexually Transmitted Disease: No HIV/AIDS: No Genitourinary History of Genitourinary Disor: Yes (BLADDER CANCER--TURBT X 2--LAST ONE 07/19/[address] HUMPHRIES. PENILE IMPLANT; ) Genitourinary Disorders: Prostate Problems, Renal Failure Gastrointestinal History of Gastrointestinal Di: Yes (S/P CHOLECYSTECTOMY; ANAL FISTULA/FISSURE REPAIR; RUPTURED APPENDIX REMOVED) Gastrointestinal Disorders: Gastroesophageal Reflux, Gall Bladder Disease Musculoskeletal History of Musculoskeletal Dis: Yes (LEFT SHOULDER SURGERY; LEFT KNEE SURGERY) Musculoskeletal Disorders: Arthritis, Chronic Back Pain Endocrine History of Endocrine Disorders: No HEENT History of HEENT Disorders: No (GLASSES) Loss of Vision: Denies Hearing Impairment: Denies Cancer History of Cancer: Yes Cancer: Bladder, Prostate Psychosocial History of Psychiatric Problem: No Integumentary History of Skin or Integumenta: No Blood Transfusions History of Blood Disorders: No Adverse Reaction to a Blood Tr: No (HAS HAD BLOOD WITH NO REACTION) Family Medical History Significant Family History: Heart Disease (Father had CHF), Diabetes Family Medial History: Family history: Cardiovascular disease 19 FATHER, Onset:Unknown Family history: Coronary thrombosis 19 FATHER, Onset:Unknown History of - respiratory disease 19 MOTHER, Onset:Unknown G8 SISTER, Onset:Unknown No Family History of: Abdominal aortic aneurysm Rogerio's disease Alcoholism Aphasia Cancer Cancer of colon Cataract Chest pain Congenital heart disease Congestive heart failure Cystic fibrosis Dementia Dysphagia Family history: Allergy Family history: Alzheimer's disease Family history: Arthritis Family history: Asthma Family history: Breast disease Family history: Diabetes mellitus Family history: Gastrointestinal disease Family history: Glaucoma Family history: Hypertension Family history: Osteoporosis Family history: Thyroid disorder Headache Hearing loss Heart disease Hereditary disease History of - anemia History of - disorder History of drug abuse Human immunodeficiency virus (HIV) seropositivity Hypercholesterolemia Infertile Kidney disease Malignant neoplasm of lung Myocardial infarction Parkinson's disease Prostate cancer Psychotic disorder Seizure disorder Stroke Tuberculosis Visual impairment Review of Systems Constitutional: No chills, No diaphoresis, No malaise, No weakness EENTM: No blurred vision, No double vision, No mouth pain, No mouth swelling, No epistaxis Respiratory: No cough, No dyspnea on exertion, No hemoptysis Cardiovascular: No chest pain; Hx of Intervention; No palpitations Gastrointestinal: No abdominal pain, No diarrhea, No hematemesis, No jaundice, No nausea, No vomiting Genitourinary: dysuria, hematuria, hesitancy, other (passing clots and urinary retention secondary to clots) Musculoskeletal: back pain, joint pain, joint swelling, muscle stiffness, muscle cramps Skin: No change in color, No change in hair/nails Psychiatric/Neurological: Denies Anxiety, Denies Depressed, Denies Seizure, Denies Tremors pt states he bruises easily because of the Plavix Physical Exam Vital Signs Vital Signs - First Documented 08/17/19 08/18/19 17:48 05:05 Temp 37.5 Pulse 59 Resp 16 B/P (MAP) 185/74 (111) Pulse Ox 97 O2 Delivery Room Air Capillary Refill : Less Than 3 Seconds Height, Weight, BMI Height: 5'9.00" Weight: 195lbs. 7.0oz. 88.490225ax; 29.10 BMI Method:Stated General Appearance: WD/WN, Mild Distress Eyes: Bilateral Eye PERRL, Bilateral Eye EOMI HEENT: Pharynx Normal, Moist Mucous Membranes Neck: Full Range of Motion, Normal Inspection, Non Tender, Supple Respiratory: Chest Non Tender, Lungs Clear, Normal Breath Sounds, No Accessory Muscle Use, No Respiratory Distress Cardiovascular: Regular Rate, Rhythm, No Edema, No Murmur Gastrointestinal: Normal Bowel Sounds, No Organomegaly, No Pulsatile Mass, Non Tender, Soft Genital/Rectal: Normal Genital Exam, Other (pt has gavin in place with CBI, red tinged with small clots) Extremity: Normal Capillary Refill, No Calf Tenderness, No Pedal Edema Neurologic/Psychiatric: Alert, Oriented x3, No Motor/Sensory Deficits, Normal Mood/Affect, warp hanger II-XII Norm as Tested Skin: Normal Color, Warm/Dry Lymphatic: No Adenopathy (neck, axilla or groin) Data Review Labs Laboratory Tests 08/17/19 17:53: Urine Color REDH, Urine Clarity BLOODYH, Urine pH 8, Urine Specific [place] 1.015L, Urine Protein 4+, Urine Glucose (UA) NEGATIVE, Urine Ketones 1+H, Urine Nitrite NEGATIVE, Urine Bilirubin NEGATIVE, Urine Urobilinogen 4H, Urine Leukocyte Esterase NEGATIVE, Urine RBC (Auto) 4+H, Urine RBC TNTCH, Urine WBC 0- 2, Urine Crystals NONE, Urine Bacteria NEGATIVE, Urine Casts NONE, Urine Mucus NEGATIVE, Urine Culture Indicated NO 08/17/19 18:39: White Blood Count 10.9, Red Blood Count 5.11, Hemoglobin 15.4, Hematocrit 45, Mean Corpuscular Volume 88, Mean Corpuscular Hemoglobin 30, Mean Corpuscular Hemoglobin Concent 35, Red Cell Distribution Width 16.7H, Platelet Count 244, Mean Platelet Volume 9.4, Neutrophils (%) (Auto) 66, Lymphocytes (%) (Auto) 21, Monocytes (%) (Auto) 10, Eosinophils (%) (Auto) 3, Basophils (%) (Auto) 0, Neutrophils # (Auto) 7.2, Lymphocytes # (Auto) 2.3, Monocytes # (Auto) 1.1H, Eosinophils # (Auto) 0.3, Basophils # (Auto) 0.0, Prothrombin Time 13.3, INR Comment 1.0, Activated Partial Thromboplast Time 41H, Sodium Level 139, Potassium Level 4.0, Chloride Level 107, Carbon Dioxide Level 20L, Anion Gap 12, Blood Urea Nitrogen 22H, Creatinine 1.58H, Estimat Glomerular Filtration Rate 44, BUN/Creatinine Ratio 14, Glucose Level 81, Calcium Level 9.4, Corrected Calcium , Total Bilirubin 0.3, Aspartate Amino Transf (AST/SGOT) 18, Alanine Aminotransferase (ALT/SGPT) 21, Alkaline Phosphatase 97, Total Protein 7.4, Albumin 4.6H 08/18/19 01:45: White Blood Count 10.8, Red Blood Count 4.51, Hemoglobin 13.4, Hematocrit 40, Mean Corpuscular Volume 88, Mean Corpuscular Hemoglobin 30, Mean Corpuscular Hemoglobin Concent 34, Red Cell Distribution Width 16.1H, Platelet Count 226, Mean Platelet Volume 9.4 08/18/19 06:02: White Blood Count 15.9H, Red Blood Count 4.60, Hemoglobin 13.8, Hematocrit 40, Mean Corpuscular Volume 87, Mean Corpuscular Hemoglobin 30, Mean Corpuscular Hemoglobin Concent 35, Red Cell Distribution Width 16.3H, Platelet Count 242, Mean Platelet Volume 9.5, Neutrophils (%) (Auto) 86H, Lymphocytes (%) (Auto) 7L, Monocytes (%) (Auto) 6, Eosinophils (%) (Auto) 1, Basophils (%) (Auto) 0, Neutrophils # (Auto) 13.8H, Lymphocytes # (Auto) 1.1, Monocytes # (Auto) 0.9, Eosinophils # (Auto) 0.1, Basophils # (Auto) 0.0, Prothrombin Time 13.5, INR Comment 1.0, Activated Partial Thromboplast Time 42H, Sodium Level 137, Potassium Level 3.8, Chloride Level 107, Carbon Dioxide Level 20L, Anion Gap 10, Blood Urea Nitrogen 16, Creatinine 1.40H, Estimat Glomerular Filtration Rate 51, BUN/Creatinine Ratio 11, Glucose Level 93, Calcium Level 8.6, Corrected Calcium 8.4L, Total Bilirubin 0.5, Aspartate Amino Transf (AST/SGOT) 15, Alanine Aminotransferase (ALT/SGPT) 15, Alkaline Phosphatase 98, Total Protein 6.7, Albumin 4.3, Neutrophils % (Manual) 84, Lymphocytes % (Manual) 7, Monocytes % (Manual) 5, Band Neutrophils 4, Blood Morphology Comment NORMAL Assessment/Plan Assessment/Plan Admission Diagonsis Hx of TURBT 3 weeks ago Hematuria with clots Urinary Retention secondary to above Admission Status: Inpatient Order (span 2 midnights) Reason for Inpatient Admission: Pt has clots causing urinary retention and I am not sure how long it will take the bleeding to stop, most likely it is due to plavix. It may be less than 2 midnights, but it may be more Assessment/Plan Hx of TURBT 3 weeks ago Hematuria with clots Urinary Retention secondary to above Plan is to continue CBI until urine is clear, hold Plavix, pain control if needed and IVF. Will start pt on a regular diet and he should walk around as much as possible today with gavin in place. Clinical Quality Measures DVT/VTE Risk/Contraindication: Risk Factor Score Per Nursin RFS Level Per Nursing on Admit: 3=High FBAIO BILLS DO Aug 18, 2019 09:52
[2019-08-18 12:08] VITALS: BP 157/69
[2019-08-18 16:12] VITALS: BP 137/62
[2019-08-18 19:39] VITALS: BP 120/59
[2019-08-18] MEDS ORDERED: LIDOCAINE UROJET 2% GEL 10 ML PKG ONE (19:40)
[2019-08-19 00:28] VITALS: BP 131/67
[2019-08-19] MEDS ORDERED: BELLADONNA ALK/OPIUM (B & O) 30 MG SUPP PR PRN (01:15)
--- NOTE | 2019-08-19 02:12 | NUR ---
THIS NURSE HAS BEEN IN PATIENT ROOM APPROXIMATELY EVERY 15-30 MINUTES SINCE START OF SHIFT TO HAND IRRIGATE PATIENT KILGORE. NUMEROUS SMALL CLOTS EXTRACTED AND A FEW LARGE CLOTS. AT 2315 THIS NURSE WAS ATTEMPTING TO HAND IRRIGATE, DID REMOVE A FEW SMALL CLOTS BUT WHEN CBI TURNED ON PATIENT WAS IN SEVERE PAIN AND KILGORE WAS NOT FLOWING. AFTER AN HOUR OF HAND IRRIGATION THIS NURSE CALLED CHARGE NURSE BOLA RN AND BOLA RN AND MARIBEL RN CAME TO ASSIST WITH IRRIGATION. AFTER ONE HOUR OF ATTEMPTING TO HAND IRRIGATE STAFF CHANGED PATIENT'S KILGORE. NUMEROUS LARGE CLOTS CAME OUT WITH THE KILGORE AND NUMEROUS WERE REMOVED WHEN NEW KILGORE WAS IRRIGATED. PATIENT WAS COMPLAINING OF SEVERE PAIN SO THIS NURSE CALLED DR BILLS AND UPDATED ON PATIENT SITUATION AND ORDER WAS RECEIVED FOR MARILU ROSA SUPPOSITORY 30MG RECTALLY BID PRN BLADDER SPASMS. SUPPOSITORY WAS ADMINISTERED ORDERED WITH LITTLE RELIEF. STAFF CONTINUED TO ATTEMPT TO MANUALLY IRRIGATE KILGORE WITH LITTLE RESULTS. DR BILLS CALLED AGAIN AND UPDATED THAT STAFF HAS NOW BEEN ATTEMPTING TO GET KILGORE FLOWING FOR THREE HOURS. ORDER WAS RECEIVED TO LEAVE KILGORE IN, TURN OFF CBI AND DR BILLS WILL SEE PATIENT LATER THIS A.M. STAFF DID BLADDER SCAN PATIENT AND RESULTS WERE 179ML. WILL CONTINUE TO MONITOR.
[2019-08-19] MEDS: morphine INJ 4 MG/ML 1 ML (VIAL/SYRINGE) IVP PRN ×3 (02:38→06:41)
[2019-08-19 04:27] VITALS: BP 129/65
[2019-08-19] MEDS: TRIM/SULFAMETH 160/800 (SEPTRA DS) TAB PO SCH (06:38)
[2019-08-19 08:00] VITALS: BP 114/68
[2019-08-19] MEDS: 1/2 NS IV SOLUTION 1,000 ML IV SCH (10:21)
--- NOTE | 2019-08-19 10:22 | Progress Note - Surgery ---
ARNOLD MORRIS,MED STUDENT 08/19/19 1022: Subjective Date Seen by a Provider: Aug 19, 2019 Time Seen by a Provider: 09:27 Subjective/Events-last exam Patient seen and examined. Mr. Bernal states he is not doing well today. Since yesterday he has had an increase in abdominal pain that is suprapubic and RLQ. He described the pain as cramping and states it is a 10/10 on the pain scale. It is worse when his bladder is being irrigated, nothing has seemed to make the pain better. He denies any fevers/chills, nausea/vomiting, constipation/diarrhea at this time but does state he has had a decreased appetite due to pain. He feels as though his bladder is very full and cramping. Review of Systems General: No Chills, No Night Sweats; Fatigue HEENT: No Head Aches Pulmonary: No Dyspnea, No Cough Cardiovascular: No: Chest Pain, Lt Headedness Gastrointestinal: Abdominal Pain (suprapubic); No: Nausea, Vomiting, Diarrhea, Constipation, Melena Genitourinary: Hematuria, Retention Neurological: No: Weakness, Confusion Objective Exam Vital Signs Date Time Temp Pulse Resp B/P (MAP) Pulse Ox O2 Delivery O2 Flow Rate FiO2 08/19/19 08:00 Room Air 08/19/19 08:00 36.8 70 18 114/68 (83) 95 Room Air 08/19/19 04:27 37.2 69 20 129/65 (86) 96 Room Air 08/19/19 00:28 37.1 72 18 131/67 (88) 95 Room Air 08/18/19 20:00 Room Air 08/18/19 19:39 36.7 73 18 120/59 (79) 94 Room Air 08/18/19 16:12 37.7 59 20 137/62 (87) 96 Room Air 08/18/19 12:08 37.5 69 18 157/69 (98) 95 Room Air I & O 08/19/19 07:00 Intake Total 24743 ml Output Total 71495 ml Balance 4095 ml Capillary Refill : Less Than 3 Seconds General Appearance: WD/WN, Mild Distress HEENT: Moist Mucous Membranes Neck: Non Tender, Supple; No Lymphadenopathy (L), No Lymphadenopathy (R) Respiratory: Chest Non Tender, Lungs Clear, Normal Breath Sounds, No Accessory Muscle Use, No Respiratory Distress Cardiovascular: Regular Rate, Rhythm, Systolic Murmur Peripheral Pulses: 2+ Radial Pulses (R), 2+ Radial Pulses (L) Gastrointestinal: normal bowel sounds, distended (minimally); No guarding, No rebound; tenderness (suprapubic ) Extremity: No Calf Tenderness, No Pedal Edema Neurologic/Psychiatric: Alert, Oriented x3, Normal Mood/Affect Skin: Normal Color, Warm/Dry Lymphatic: No Adenopathy (neck) Assessment/Plan Assessment/Plan Assessment/Plan Hx of TURBT 3 weeks ago Hematuria with clots Urinary Retention secondary to above Hold plavix. Pain control as needed. Continue IVF. Encouraged increased ambulation. Indwelling gavin in place Clinical Quality Measures DVT/VTE Risk/Contraindication: Risk Factor Score Per Nursin RFS Level Per Nursing on Admit: 3=High MIGUELANGEL BILLS DO 08/19/19 1223: Subjective Time Seen by a Provider: 11:12 Subjective/Events-last exam Pt seen and examined, I also received phone calls on his status all night. He appears sicker today in more pain. Objective Exam Cardiovascular: Systolic Murmur (III/ ANDRZEJ) Assessment/Plan Assessment/Plan Assessment/Plan Pt did worse over night, not doing well today. Bladder scan showed 400 but after manual irrigation and aspiration only 25ml of clot removed. Pt probably has bladder full of clots. I consulted with Dr. Glasgow who is unfortunately out of town and pt will be transferred to [facility]. He needs cystoscopy with evacuation of clots and possible cautery of whatever is bleeding. Supervisory-Addendum Brief Verification & Attestation Participated in pt care: history, MDM, physical Personally performed: exam, history, MDM Care discussed with: Medical Student Procedures: n/a Verification and Attestation of Medical Student E/M Service A medical student performed and documented this service in my presence. I reviewed and verified all information documented by the medical student and made modifications to such information, when appropriate. I personally performed the physical exam and medical decision making. Miguelangel Bills, Aug 19, 2019,12:27 ARNOLD MORRIS MED STUDENT Aug 19, 2019 10:22 MIGUELANGEL BILLS DO Aug 19, 2019 12:23
[2019-08-19 12:00] VITALS: BP 118/70
--- NOTE | 2019-08-19 13:11 | Discharge Inst-Surgical ---
Discharge Inst-Surgical Reconcile Patient Problems Problems Reviewed?: Yes Depart Medication/Instructions New, Converted or Re-Newed RX: Other (no new rx needed) Consults/Follow Up Patient Instructions: Pt is being sent to [facility] to be [facility] and seen by Urologist for Cystoscopy. Pt elected to drive himself over there, rather than go by Ambulance; this is completely fine. Activity Activity as Tolerated: Yes Driving Instructions: No Driving/Refer to Dr. Yun Discharge Diet: No Restrictions Diet After 24 Hours: Clear Liquid if Nauseous If Any Problems/Questions/Issu: Contact Your Physician, Go to Emergency Room Skin/Wound Care Infection Signs and Symptoms: Increased Swelling, Temperature Above 101 F Bathing Instructions: FABIO Ponce DO Aug 19, 2019 13:11
--- NOTE | 2019-08-19 13:46 | NUR ---
urologist unavailable until sometime alysia. Dr browning, Dr johnson, and patient family decided it was in patients best interest to transfer to [facility] for further care. this RN gave report to Emily YEE at [facility] [place]
[2019-08-19 13:49] VITALS: BP 114/68
== END 2019-08-19 13:29 | disposition home or self-care (01) ==
LOC: EDUNIT# 17:30 → ER 17:31 → 4TH 08-18 03:45
PROVIDERS: ADMIT Surgery; ATTEND Surgery
DX: R31.9 Hematuria, unspecified (principal); R33.9 Retention of urine, unspecified; I10 Essential (primary) hypertension; E78.00 Pure hypercholesterolemia, unspecified; I73.9 Peripheral vascular disease, unspecified; N19 Unspecified kidney failure; K21.9 Gastro-esophageal reflux disease without esophagitis; G47.30 Sleep apnea, unspecified; G89.29 Other chronic pain; M19.90 Unspecified osteoarthritis, unspecified site; M54.9 Dorsalgia, unspecified; F17.210 Nicotine dependence, cigarettes, uncomplicated; Z88.0 Allergy status to penicillin; Z88.8 Allergy status to other drugs, medicaments and biological substances; Z79.899 Other long term (current) drug therapy; Z92.3 Personal history of irradiation; Z79.01 Long term (current) use of anticoagulants; Z82.49 Family history of ischemic heart disease and other diseases of the circulatory system
CPT/HCPCS: 36415; 51702; 74018; 74176; 80053; 81000; 85007; 85025; 85027; 85610; 85730; 96360; 96361; G0378

== ENCOUNTER → 2019-10-04 | Outpatient (CLI) | payer MEDICARE, OTHER ==
--- NOTE | 2019-10-04 10:14 | Diagnostic Imaging Report ---
CLINICAL INDICATION: Patient with carotid bruit. COMPARISON: None. EXAM: Real-time carotid Doppler duplex imaging is performed bilaterally. Peak systolic velocity, ICA/CCA peak systolic ratio, spectral analysis, and vascular morphology are studied. FINDINGS: ARTERY VELOCITY Right Left CCA 0.95 m/s 0.78 m/s ICA 1.05 m/s 1.28 m/s ECA 1.39 m/s 2.21 m/s ICA/CCA 0.9 1.7 VERT.ART Antegrade Antegrade There is bilateral carotid artery atherosclerotic disease with the bilateral ICA bulbs affected the most. There are elevated velocities involving the left ECA with localized area of soft plaque narrowing. IMPRESSION: 1: There is suspected roughly 50 to 69% stenosis of the left ECA. 2: Otherwise, there is mild bilateral carotid artery atherosclerotic disease with no grayscale or Doppler evidence of significant vascular stenosis. Dictated by: Dictated on workstation # [id number]
== END ==
LOC: CARD 08:25
PROVIDERS: ATTEND Internal Medicine Interventional Cardiology
DX: I65.23 Occlusion and stenosis of bilateral carotid arteries (principal); I25.10 Atherosclerotic heart disease of native coronary artery without angina pectoris; I12.9 Hypertensive chronic kidney disease with stage 1 through stage 4 chronic kidney disease, or unspecified chronic kidney disease; N18.9 Chronic kidney disease, unspecified; E78.5 Hyperlipidemia, unspecified
CPT/HCPCS: 93306; 93880

== ENCOUNTER → 2019-12-13 | Outpatient (CLI) | payer MEDICARE, OTHER ==
[~2019-12-13] MED LIST changes: +EZET10TA17 PO; -EZET10TA5 PO
--- NOTE | 2019-12-13 13:06 | Diagnostic Imaging Report ---
EXAMINATION: Renal artery Doppler, bilateral. INDICATION: Renal insufficiency. TECHNIQUE: Spectral and color-flow imaging of the renal arteries and aorta was performed. FINDINGS: The previous renal Doppler exam of 08/13/2016 failed to show any sign of a hemodynamically significant stenosis of either renal artery. However, the proximal right renal artery was not well visualized. On this exam, both kidneys were identified. The right kidney measures 7.7 x 3.1 x 3.2 cm while the left kidney is estimated to be 12.5 x 5.8 x 6.1 cm. On the prior exam, the right kidney measured 9.8 cm in length, and the left kidney was estimated to be 12.6 cm in length. In addition to the decrease in the size of the right kidney, the right renal cortex also seems thinned compared to the previous exam. The left renal cortex is normal. Spectral and color-flow imaging of the renal arteries again fails to show any sign of a hemodynamically significant stenosis. However, the velocities within the left renal artery are 4-5 times greater than the velocities in the right renal artery. While there may not be a hemodynamically significant stenosis of the right renal artery, the possibility that there is diminished arterial blood flow should certainly be considered. If further evaluation is desired, then a nuclear medicine renal scan/renogram would be recommended. The urinary bladder was visualized during the course of the exam. The bladder is partially filled. There is no obvious bladder abnormality identified. However, the right ureteral jet could not be visualized. The left ureteral jet was noted. IMPRESSION: 1. The right kidney has decreased in size since the prior examination, and the right renal cortex does seem thinned. There also appears to be diminished arterial blood flow to the right kidney. The absence of the right ureteral jet also suggests that the renal function may be compromised perhaps due to vascular insufficiency. A nuclear medicine renal scan should be considered for further evaluation of the function of the right kidney.. 2. There is no abnormality of the left kidney. 3. The urinary bladder is grossly unremarkable. Dictated by: Dictated on workstation # [id number]
== END ==
LOC: RAD 08:39
PROVIDERS: ATTEND Urology
DX: N28.9 Disorder of kidney and ureter, unspecified (principal)
CPT/HCPCS: 76770; 93975

== ENCOUNTER → 2020-10-16 | Outpatient (CLI) | payer MEDICARE, OTHER ==
[~2020-10-16] MED LIST changes: +AMLO-251 PO; -AMLO10TA7 PO; +ASPI-1238 PO; -ASPI-983 PO
--- NOTE | 2020-10-16 15:49 | Diagnostic Imaging Report ---
EXAMINATION: CT Abdomen Pelvis without contrast. TECHNIQUE: Multiple contiguous axial images were obtained through the abdomen and pelvis without the use of intravenous contrast. All CT scans use one or more of the following dose optimizing techniques: automated exposure control, MA and/or KvP adjustment based on a patient size and exam type, or iterative reconstruction. HISTORY: Flank pain. COMPARISON: 08/17/2019. FINDINGS: Limited views of the lower thorax are unremarkable. The liver is normal without focal lesion. There is no biliary ductal dilation. Gallbladder is normal. Pancreas is normal. Spleen is normal. Adrenal glands are normal. Right kidney is atrophic. There is perinephric stranding. No stones are seen. There is no hydronephrosis. Urinary bladder is normal. There appears to be a penile prosthesis. There is diverticulosis without diverticulitis. There are bilateral iliac artery stents. No free fluid or air. No abdominal or pelvic lymphadenopathy. Aorta is normal in caliber without aneurysm. There are no suspicious osseous lesions. IMPRESSION: 1. Atrophic right kidney, nonspecific perinephric stranding. No stones are seen. Dictated by: Dictated on workstation # [id number]
--- NOTE | 2020-10-16 17:57 | Diagnostic Imaging Report ---
INDICATION: Left flank pain with hematuria. Comparison with 08/17/2019 exam. FINDINGS: KUB shows the lung bases to be clear. No evidence of calculi about the kidneys or along the ureteral path or bladder. There is no organomegaly. There is normal stool and gas pattern within the colon. There is a vascular stent along the left iliac region. IMPRESSION: No acute abnormalities demonstrated when compared with previous exam. Dictated by: Dictated on workstation # [id number]
== END ==
LOC: RAD 14:45
PROVIDERS: ATTEND Urology
DX: N26.1 Atrophy of kidney (terminal) (principal); R10.9 Unspecified abdominal pain
CPT/HCPCS: 74018; 74176

== ENCOUNTER 2020-10-22 09:51 | Outpatient (RCR) | payer MEDICARE ==
[~2020-10-22 09:51] MED LIST changes: -CLIN150C17 PO; +CLIN150C18 PO
[2020-10-22 10:06] LABS: BILIRUBIN,URINE NEGATIVE (NEGATIVE); CLARITY,URINE CLOUDY; COLOR,URINE ORANGE; GLUCOSE, URINE (UA) NEGATIVE (NEGATIVE); KETONES,URINE NEGATIVE (NEGATIVE); LEUKOCYTE ESTERASE ,URINE NEGATIVE (NEGATIVE); NITRITE,URINE NEGATIVE (NEGATIVE); PROTEIN,URINE NEGATIVE (NEGATIVE)
[2020-10-22 10:16] LABS: BACTERIA,URINE NEGATIVE /HPF; RBC,URINE TNTC /HPF
== END 2021-01-20 | disposition home or self-care (01) ==
LOC: LAB 09:51
PROVIDERS: ATTEND Urology
DX: R31.0 Gross hematuria (principal); Z85.51 Personal history of malignant neoplasm of bladder
CPT/HCPCS: 81000; 88112

== ENCOUNTER → 2020-11-18 | Outpatient (CLI) | payer MEDICARE, OTHER ==
--- NOTE | 2020-11-18 13:42 | Diagnostic Imaging Report ---
CT Lung Screening INDICATION: 78 pack year history smoking. TECHNIQUE: Noncontrast, low-dose CT imaging performed according to the lung cancer screening protocol. Auto Exposure Controls were utilize during the CT exam to meet ALARA standards for radiation dose reduction. COMPARISON: 10/18/2018 FINDINGS: Since the previous exam, there has been interval development of lobulated mass of the left upper lobe. It measures 3.5 x 4.3 cm in axial dimension and extends 3.9 cm in CC dimension. There is prominence of the superior margins of the left hilum suspicious for hilar adenopathy. However, given the noncontrast nature of the exam, distinct pulmonary nodule cannot be delineated from hilar vessels. There is no focal consolidation, large effusion, no pneumothorax. Heart size is borderline enlarged. There is no large pericardial effusion. Mild scattered calcified aortic and coronary atherosclerosis is noted. No abnormal axillary or mediastinal lymph nodes are seen. Osseous structures show age-related degenerative changes. No lytic or blastic bony lesions are seen. Included portions of the upper abdomen are unremarkable as well. IMPRESSION: 1. Interval development of solid left upper lobe mass. This is in a position amenable to biopsy. CT-guided biopsy is recommended. 2. Prominence of the left superior hilar region. Again, this is suspicious for ipsilateral hilar adenopathy, although delineation from pulmonary vessels is suboptimal given the noncontrast nature of the exam. Further evaluation with CT PET is advised. 3. Mild cardiomegaly. LUNG-RADS CATEGORY:4X MODIFIER: None OTHER SIGNIFICANT FINDINGS: None Dictated by: Dictated on workstation # [id number]
== END ==
LOC: RAD 12:55
PROVIDERS: ATTEND Internal Medicine
DX: Z12.2 Encounter for screening for malignant neoplasm of respiratory organs (principal); I51.7 Cardiomegaly; R91.8 Other nonspecific abnormal finding of lung field; F17.210 Nicotine dependence, cigarettes, uncomplicated
CPT/HCPCS: 71271

== ENCOUNTER 2021-03-08 22:28 | Emergency (ER) | payer MEDICARE, OTHER ==
[~2021-03-08] VITALS: Ht 175.3 cm; Wt 90.7 kg
[~2021-03-08 22:28] MED LIST changes: +OXYMETAZOLINE (AFRIN) 0.05% NA 30 ML BTL ONE
--- NOTE | 2021-03-08 22:51 | ED EENT ---
History of Present Illness General Chief Complaint: Nasal Problems Stated Complaint: NOSE BLEED Source: patient Exam Limitations: no limitations History of Present Illness Date Seen by Provider: March 08, 2021 Time Seen by Provider: 22:50 Initial Comments Patient presents ER by private conveyance with chief complaint that for the past day and a half he has had a nosebleed out of his right nare. He went to the ER at [facility] and had it sprayed with Afrin and then packed with a tampon. The tampon has become dislodged and he is continue to have bleeding down the back of his throat which she has swallowed as well as expectorated. No nausea or vomiting. No chest pain or shortness of air. No fevers or chills. He is not on blood thinners. He does take aspirin but he stopped taking it yesterday. He has never had a problem with nosebleeds before he is known to Dr. Griffin for other issues. He is on Augmentin after being packed at [facility]. Allergies and Home Medications Allergies Coded Allergies: Penicillins (Verified Adverse Reaction, Mild, ORAL THRUSH, 07/17/19) Oral thrush Home Medications Amlodipine Besylate 10 Mg Tablet, 10 MG PO HS, (Reported) Calcium Polycarbophil 625 Mg Tablet, 625 MG PO HS, (Reported) Cyanocobalamin (Vitamin B-12) 2,500 Mcg Tablet, 2,500 MCG PO DAILY, (Reported) Ezetimibe 10 Mg Tablet, 10 MG PO HS, (Reported) Hydralazine HCl 50 Mg Tablet, 50 MG PO PRN, (Reported) L. Acidophilus/Dig Enz Cmb 5 1 Each Capsule, 2 CAP PO HS, (Reported) Losartan Potassium 100 Mg Tablet, 100 MG PO DAILY, (Reported) Magnesium Oxide 500 Mg Capsule, 500 MG PO DAILY, (Reported) Phenazopyridine HCl 200 Mg Tablet, 1 TAB PO TID Prescribed by: MARILOU PRICE on 07/19/19 105 Rosuvastatin Calcium 10 Mg Tablet, 10 MG PO HS, (Reported) Sulfamethoxazole/Trimethoprim 1 Each Tablet, 1 EACH PO BID Prescribed by: MARILOU PRICE on 07/19/19 1053 Sulfamethoxazole/Trimethoprim 1 Each Tablet, 1 EACH PO BID Prescribed by: CALEB DONAHUE on 08/18/19 0337 Terazosin HCl 2 Mg Capsule, 2 MG PO DAILY, (Reported) Patient Home Medication List Home Medication List Reviewed: Yes Review of Systems Review of Systems Constitutional: No chills, No diaphoresis, No fever Eyes: Denies Blindness, Denies Blurred Vision Ears: Denies Dizziness, Denies Pain Nose: denies clots, denies congestion Mouth: denies clots, denies loose teeth Throat: denies pain, denies swelling Respiratory: No cough, No short of breath Cardiovascular: No chest pain, No edema Gastrointestinal: No abdominal pain, No nausea, No vomiting All Other Systems Reviewed Negative Unless Noted: Yes Past Ozmjwrw-Dwiztt-Pzjifu Hx Patient Social History Alcohol Use: Denies Use Smoking Status: Current Everyday Smoker Type Used: Cigarettes 2nd Hand Smoke Exposure: Yes Recent Hopitalizations: No Immunizations Up To Date Tetanus Booster (TDap): More than 5yrs PED Vaccines UTD: No Date of Pneumonia Vaccine: Aug 29, 2018 Date of Influenza Vaccine: Aug 07, 2018 Seasonal Allergies Seasonal Allergies: Yes Past Medical History Surgeries: Yes Abdominal, Bladder Surgery, Gallbladder, Orthopedic, Penile Implant, Rectal, Vascular Surgery Respiratory: Yes Sleep Apnea Currently Using CPAP: Yes Cardiac: Yes (ILIAC ARTERY STENTS) High Cholesterol, Hypertension, Peripheral Vascular Neurological: No Reproductive Disorders: Yes (E.D.) Sexually Transmitted Disease: No HIV/AIDS: No Genitourinary: Yes (BLADDER CANCER--TURBT X 2--LAST ONE 07/19/[address] HUMPHRIES. PENILE IMPLANT; ) Prostate Problems, Renal Failure Gastrointestinal: Yes (S/P CHOLECYSTECTOMY; ANAL FISTULA/FISSURE REPAIR; RUPTURED APPENDIX REMOVED) Gastroesophageal Reflux, Gall Bladder Disease Musculoskeletal: Yes (LEFT SHOULDER SURGERY; LEFT KNEE SURGERY) Arthritis, Chronic Back Pain Endocrine: No HEENT: No (GLASSES) Loss of Vision: Denies Hearing Impairment: Denies Cancer: Yes Bladder, Prostate Did You Recieve Any Treatments: Yes What Type of Treatment Did You: Radiation, Surgical Intervention Psychosocial: No Integumentary: No Blood Disorders: No Adverse Reaction/Blood Tranf: No (HAS HAD BLOOD WITH NO REACTION) Family Medical History Family history: Cardiovascular disease 19 FATHER, Onset:Unknown Family history: Coronary thrombosis 19 FATHER, Onset:Unknown History of - respiratory disease 19 MOTHER, Onset:Unknown G8 SISTER, Onset:Unknown No Family History of: Abdominal aortic aneurysm Rogerio's disease Alcoholism Aphasia Cancer Cancer of colon Cataract Chest pain Congenital heart disease Congestive heart failure Cystic fibrosis Dementia Dysphagia Family history: Allergy Family history: Alzheimer's disease Family history: Arthritis Family history: Asthma Family history: Breast disease Family history: Diabetes mellitus Family history: Gastrointestinal disease Family history: Glaucoma Family history: Hypertension Family history: Osteoporosis Family history: Thyroid disorder Headache Hearing loss Heart disease Hereditary disease History of - anemia History of - disorder History of drug abuse Human immunodeficiency virus (HIV) seropositivity Hypercholesterolemia Infertile Kidney disease Malignant neoplasm of lung Myocardial infarction Parkinson's disease Prostate cancer Psychotic disorder Seizure disorder Stroke Tuberculosis Visual impairment Heart Disease, Diabetes Physical Exam Vital Signs Vital Signs - First Documented 03/08/21 22:28 Temp 37.0 Pulse 70 Resp 18 B/P (MAP) 155/65 (95) Pulse Ox 96 O2 Delivery Room Air Height, Weight, BMI Height: 5'9.00" Weight: 195lbs. 7.0oz. 88.260220yn; 29.10 BMI Method:Stated General Appearance: WD/WN, no apparent distress Eyes: bilateral eye normal inspection, bilateral eye PERRL, bilateral eye EOMI Ears: bilateral ear auricle normal, bilateral ear canal normal Nose: other (Coagulated blood bilateral nostrils. Anterior nasal cavity does not show any polyps, ulcerations or active bleeding.) Mouth/Throat: other (Coagulated blood in the retropharynx) Neck: full range of motion, normal inspection Cardiovascular: normal peripheral pulses, regular rate, rhythm, no edema Gastrointestinal: non tender, soft Neurologic/Psychiatric: alert, normal mood/affect, oriented x 3 Progress/Results/Core Measures Results/Orders Lab Results Laboratory Tests Test 03/09/21 00:12 Range/Units Hemoglobin 13.6 13.3-17.7 g/dL Hematocrit 40 40-54 % My Orders Orders - SHAKILA RUFFIN Oxymetazoline 0.05% Nasal [place] (Afrin 0. (03/08/21 22:25) Hemoglobin And Hematocrit (03/08/21 22:41) Oxymetazoline 0.05% Nasal [place] (Afrin 0. (03/09/21 09:00) Vital Signs/I&O 03/08/21 22:28 Temp 37.0 Pulse 70 Resp 18 B/P (MAP) 155/65 (95) Pulse Ox 96 O2 Delivery Room Air Progress Progress Note #1: Time: 22:50 Progress Note Removed a Merocel packing and sprayed a generous amount of Afrin up each nostril and then clamped him sitting him up straight and instructed him to expectorate. We will recheck on him in about 20 to 40 minutes. We will check an H&H. May need to use posterior Rhino Rocket as the bleed does appear to be posterior. There is nothing to cauterize that I can see using the otoscope. Progress Note #2: Time: 23:55 Progress Note The clamps then removed for about 15 minutes and he has not had any further bleeding. There is a small area of ulceration on the anterior portion of one of the turbinates visible in the right nostril. We put a little touch of silver nitrate cautery to the area and he is still not having any bleeding. We will send him home with cautery and a clamp and then return precautions. Departure Impression Primary Impression: Epistaxis Disposition: HOME, SELF-CARE Condition: Stable Departure-Patient Inst. Decision time for Depature: 00:05 Referrals: CHERYL GRIFFIN MD, DAVID F MD (PCP/Family) Primary Care Physician Patient Instructions: Nosebleeds (DC) Add. Discharge Instructions: If you have a repeat nosebleed apply 2 puffs of Afrin up each nostril put the clamp on and sit upright. Spit out any blood. Do not take the clamp off, clear your nose blow your nose or stick anything in your nose. If after 40 minutes you take the clamp off and the bleeding does not stop then you may either repeat the process or return to the ER for further management. Call Dr. Griffin in the morning and request follow-up appointment in the clinic. Continue taking the antibiotics as prescribed. All discharge instructions reviewed with patient and/or family. Voiced understanding. Copy Copies To 1: CHERYL GRIFFIN MD, TITUS J March 08, 2021 22:51
[2021-03-09 00:17] LABS: HEMOGLOBIN 13.6 g/dL (13.3-17.7)
[2021-03-09 00:44] VITALS: BP 144/65
[2021-03-09] MEDS ORDERED: OXYMETAZOLINE (AFRIN) 0.05% NA 30 ML BTL SCH (09:00)
== END 2021-03-09 00:44 | disposition home or self-care (01) ==
LOC: EDUNIT# 22:28 → ER 22:29
DX: R04.0 Epistaxis (principal); I10 Essential (primary) hypertension; E78.00 Pure hypercholesterolemia, unspecified; F17.210 Nicotine dependence, cigarettes, uncomplicated; Z88.0 Allergy status to penicillin; Z79.899 Other long term (current) drug therapy
CPT/HCPCS: 36415; 85014; 85018; 99283

== ENCOUNTER 2021-03-11 11:21 | Outpatient (CLI) | payer MEDICARE, OTHER ==
[~2021-03-11] VITALS: Ht 175.3 cm; Wt 90.7 kg
[~2021-03-11 11:21] MED LIST changes: -OXYMETAZOLINE (AFRIN) 0.05% NA 30 ML BTL ONE
[2021-03-11] MEDS ORDERED: ALLO100T PO (12:10)
[2021-03-11] MEDS ORDERED: CETI10TA49 PO (12:14)
[2021-03-11] MEDS ORDERED: C,E,1CAP2 PO (12:14)
[2021-03-11] MEDS ORDERED: HYDR100T27 PO (12:14)
[2021-03-11] MEDS ORDERED: CHLO25TA22 PO (12:14)
[2021-03-11] MEDS ORDERED: UBID100C44 PO (12:14)
[2021-03-11] MEDS ORDERED: AMLO-250 PO (12:14)
[2021-03-11] MEDS ORDERED: ASPI-999 PO (12:14)
[2021-03-11] MEDS ORDERED: ASCO500C17 PO (12:14)
== END 2021-03-11 12:22 ==
LOC: PREOP 11:21
PROVIDERS: ATTEND Otolaryngology Otolaryngology/Facial Plastic Surgery
DX: Z01.818 Encounter for other preprocedural examination (principal); R04.0 Epistaxis

== ENCOUNTER 2021-03-13 06:50 | Day surgery (SDC) | payer MEDICARE, OTHER ==
[2021-03-13] VITALS (10 sets, daily range): BP systolic 133–185; BP diastolic 52–78
[~2021-03-13] VITALS: Ht 175.3 cm; Wt 90.7 kg
[~2021-03-13 06:50] MED LIST changes: +ALLO100T PO; +AMLO-250 PO; +ASCO500C17 PO; +ASPI-999 PO; +C,E,1CAP2 PO; +CETI10TA49 PO; +CHLO25TA22 PO; +HYDR100T27 PO; +UBID100C44 PO
--- NOTE | 2021-03-13 07:04 | Progress Note-Pre Operative ---
Pre-Operative Progress Note H&P Reviewed The H&P was reviewed, patient examined and no changes noted. Date Seen by Provider: March 13, 2021 Time Seen by Provider: 06:30 Date H&P Reviewed: March 13, 2021 Time H&P Reviewed: 06:45 Pre-Operative Diagnosis: Recurrent Right Epistaxis, Poss right intranasal lesion CHERYL DELATORRE MD March 13, 2021 07:04
[2021-03-13] MEDS ORDERED: ONDANSETRON 4 MG/2 ML (SDV) Z0FRAN ONE (07:18)
[2021-03-13] MEDS ORDERED: fentaNYL INJ 100 MCG/2 ML AMP ONE (07:18)
[2021-03-13] MEDS ORDERED: LIDOCAINE PF 2% 5 ML (XYLOCAINE) VIAL ONE (07:18)
[2021-03-13] MEDS ORDERED: SEVOFLURANE (ULTANE) 15 ML INHAL SOLN ONE ×3 (07:18→08:15)
[2021-03-13] MEDS ORDERED: proPOfol 200 MG/20 ML (DIPRIVAN) VIAL IV ONE (07:18)
[2021-03-13] MEDS ORDERED: PHENYLEPHRINE 0.5% NASAL SPR (NEO-SYNEPHRINE) REG ONE (07:19)
[2021-03-13] MEDS ORDERED: LIDOCAINE/EPI 1%-1:100,000 (XYLOCAINE) 20ML ONE (07:19)
[2021-03-13] MEDS ORDERED: BSS 15 ML ONE (07:19)
[2021-03-13] MEDS ORDERED: MIDAZOLAM 2 MG/2 ML (VERSED) VIAL ONE (07:22)
[2021-03-13] MEDS ORDERED: MUPIROCIN 2% OINT 22 GM (BACTROBAN) TUBE ONE (07:39)
[2021-03-13 07:41] LABS: BASOPHILS # (AUTO) 0.1 10^3/uL (0.0-0.1); BASOPHILS % (AUTO) 1 % (0-10); EOSINOPHILS # (AUTO) 0.5 10^3/uL (0.0-0.3); EOSINOPHILS % (AUTO) 4 % (0-10); HEMATOCRIT 43 % (40-54); HEMOGLOBIN 14.4 g/dL (13.3-17.7); LYMPHOCYTES # (AUTO) 1.9 10^3/uL (1.0-4.0); LYMPHOCYTES % (AUTO) 15 % (12-44); MEAN CORPUSCULAR HEMOGLOBIN 30 pg (25-34); MEAN CORPUSCULAR HGB CONC 33 g/dL (32-36); MEAN CORPUSCULAR VOLUME 90 fL (80-99); MEAN PLATELET VOLUME 9.7 fL (9.0-12.2); MONOCYTES # (AUTO) 1.3 10^3/uL (0.0-1.0); MONOCYTES % (AUTO) 11 % (0-12); NEUTROPHILS # (AUTO) 8.3 10^3/uL (1.8-7.8); NEUTROPHILS % (AUTO) 69 % (42-75); PLATELET COUNT 293 10^3/uL (130-400); WHITE BLOOD COUNT 12.2 10^3/uL (4.3-11.0)
[2021-03-13] MEDS ORDERED: LACTATED RINGERS 1,000 ML IV PRN (07:45)
[2021-03-13 07:58] LABS: CALCIUM 8.9 MG/DL (8.5-10.1); CREATININE SERUM 1.65 MG/DL (0.60-1.30); POTASSIUM 3.5 MMOL/L (3.6-5.0)
[2021-03-13] MEDS ORDERED: ROCURONIUM 10 MG/ML 5 ML SYRINGE IV ONE (08:15)
[2021-03-13] MEDS ORDERED: SUCCINYLCHOLINE INJ 100 MG/5 ML SYR/VIAL ONE (08:15)
[2021-03-13] MEDS: COCAINE HCL 4% 2 ML SYR ONE ×2 (08:21→08:37)
--- NOTE | 2021-03-13 08:33 | Progress Note-Post Operative ---
Post-Operative Progess Note Surgeon (s)/Correctional Maintenance Technician (s) Surgeon CHERLY DELATORRE MD Correctional Maintenance Technician n/a Pre-Operative Diagnosis EPISTAXIS Post-Operative Diagnosis same Post-Op Procedure Note Date of Procedure: March 13, 2021 Name of Procedure Performed: Endoscopic Repair of Right Epistaxis, Endoscopic Biopsy of Intranasal Lesion, Endoscpic Biopsy of Nasopharyngeal Mass Description & Findings Description and Findings: n/a Anesthesia Type get Estimated Blood Loss minimal Packing none. Specimen(s) collected/removed right intranaal biopsy, right nasopharyngeal biopsy CHERYL DELATORRE MD March 13, 2021 08:33
[2021-03-13] MEDS ORDERED: D5 1/2 NS W/KCL 20 MEQ/L 1,000 ML IV SCH (08:45)
[2021-03-13] MEDS ORDERED: PHENYLEPHRINE 0.5% NASAL SPR (NEO-SYNEPHRINE) REG PRN (08:45)
[2021-03-13] MEDS ORDERED: HYDROcodone/APAP 5 MG/325 MG (LORTAB) TAB PO PRN ×2 (08:45)
[2021-03-13] MEDS ORDERED: ACETAMINOPHEN 500 MG TAB (TYLENOL) PO PRN (08:45)
--- NOTE | 2021-03-13 08:53 | Anesthesia-General Post-Op ---
General Patient Condition Mental Status/LOC: Same as Preop Cardiovascular: Satisfactory Nausea/Vomiting: Absent Respiratory: Satisfactory Pain: Controlled Complications: Absent Post Op Complications Complications None Follow Up Care/Instructions Patient Instructions None needed. Anesthesia/Patient Condition Patient Condition Patient is doing well, no complaints, stable vital signs, no apparent adverse anesthesia problems. No complications reported per nursing. DEA OLMEDO CRNA March 13, 2021 08:53
[2021-03-13] MEDS ORDERED: fentaNYL INJ 100 MCG/2 ML AMP IVP ONE (09:00)
[2021-03-13] MEDS ORDERED: ONDANSETRON 4 MG/2 ML (SDV) Z0FRAN IVP PRN (09:00)
[2021-03-13] MEDS ORDERED: AZIT250T PO ×2 (09:49)
[2021-03-13] MEDS ORDERED: ACHD5005 PO (09:49)
== END 2021-03-13 10:30 | disposition home or self-care (01) ==
LOC: SDC 06:50
PROVIDERS: ATTEND Otolaryngology Otolaryngology/Facial Plastic Surgery
DX: R04.0 Epistaxis (principal); J34.89 Other specified disorders of nose and nasal sinuses; I10 Essential (primary) hypertension; G47.33 Obstructive sleep apnea (adult) (pediatric); K21.9 Gastro-esophageal reflux disease without esophagitis; Z79.899 Other long term (current) drug therapy
CPT/HCPCS: 36415; 80048; 85025; 87081; 88305

== ENCOUNTER 2022-01-07 09:21 | Emergency (ER) | payer MEDICARE, OTHER ==
[~2022-01-07 09:21] MED LIST changes: +AZIT250T PO; -CLIN150C18 PO; +CLIN150C20 PO; -SULF1TAB35 PO; +SULF1TAB38 PO
== END 2022-01-07 09:28 | disposition left against medical advice (07) ==
LOC: EDUNIT# 09:21 → ER 09:22
DX: R33.9 Retention of urine, unspecified (principal)

== ENCOUNTER 2022-01-25 21:02 | Emergency (ER) | payer MEDICARE, OTHER ==
[~2022-01-25] VITALS: Ht 172.7 cm; Wt 86.2 kg
--- NOTE | 2022-01-25 21:29 | ED GU-Male ---
General Stated Complaint: TROUBLE URINATING, BLOOD CLOTS Source: patient Exam Limitations: no limitations (GARRICK RODRIGEZ) History of Present Illness Date Seen by Provider: Jan 25, 2022 Time Seen by Provider: 21:26 Initial Comments Patient is a 71-year-old male with a history of bladder cancer, lung cancer presents to ED with difficulty urinating. States last time he urinated was around 430. He states he drank a gallon of water but has not urinated. Reports passing of bright red blood and a few clots. History of similar symptoms. Currently seeing urology at [facility] scheduled for cauterization within the next 3 months. He has a history of passing blood clots and bleeding. It was recommended continue drinking plenty of fluid. Reports some lower abdominal discomfort. No vomiting, fever, chills, headache, dizziness chest pain or shortness of breath. (GARRICK RODRIGEZ) Allergies and Home Medications Allergies Coded Allergies: Penicillins (Verified Adverse Reaction, Mild, ORAL THRUSH, 07/17/19) Oral thrush Uncoded Allergies: MORPHINE CAUSES NAUSEA AND VOMITING (Adverse Reaction, Severe, Vomiting, 03/13/21) Patient Home Medication List Home Medication List Reviewed: Yes (GARRICK RODRIGEZ) Allopurinol (Allopurinol) 100 Mg Tablet, 100 MG PO DAILY, (Reported) Entered as Reported by: YUNG SAMUEL on 03/11/21 1210 Amlodipine Besylate (Amlodipine Besylate) 5 Mg Tablet, 5 MG PO DAILY, (Reported) Entered as Reported by: YUNG SAMUEL on 03/11/21 121 Ascorbic Acid (Vitamin C) 500 Mg Capsule, 500 MG PO DAILY, (Reported) Entered as Reported by: YUNG SAMUEL on 03/11/21 121 Azithromycin (Zithromax) 250 Mg Tablet, 500 MG PO UD Prescribed by: CHRISTOPHER ORNELAS on 03/13/21948 Azithromycin (Zithromax) 250 Mg Tablet, 250 MG PO DAILY Prescribed by: CHRISTOPHER ORNELAS on 03/13/21948 C,E,Zinc,Copper 24/Om3/Lut/Dina (Ocuvite Adult 50 Plus Softgel) 1 Each Capsule, 1 EACH PO DAILY, (Reported) Entered as Reported by: YUNG SAMUEL on 03/11/21 1214 Calcium Polycarbophil (Fiber) 625 Mg Tablet, 625 MG PO HS, (Reported) Entered as Reported by: NICOLE ZAIDI on 08/31/17 1326 Cetirizine HCl (Zyrtec) 10 Mg Tablet, 10 MG PO DAILY, (Reported) Entered as Reported by: YUNG SAMUEL on 03/11/21 1214 Chlorthalidone (Chlorthalidone) 25 Mg Tablet, 25 MG PO DAILY, (Reported) Entered as Reported by: YUNG SAMUEL on 03/11/21 1214 Cyanocobalamin (Vitamin B-12) (Vitamin B12) 2,500 Mcg Tablet, 2,500 MCG PO DAILY, (Reported) Entered as Reported by: MARCELINO SAMS on 07/17/19 1501 Hydralazine HCl (Hydralazine HCl) 100 Mg Tablet, 100 MG PO BID, (Reported) Entered as Reported by: YUNG SAMUEL on 03/11/21 1214 Hydrocodone/Acetaminophen (Hydrocodone-Acetamin 5-325 mg) 1 Each Tablet, 1 TAB PO Q4H Prescribed by: CHRISTOPHER ORNELAS on 03/13/21 0949 L. Acidophilus/Dig Enz Cmb 5 (Probiotic-Digestive Enzymes) 1 Each Capsule, 2 CAP PO HS, (Reported) Entered as Reported by: NICOLE ZAIDI on 08/31/17 1326 Losartan Potassium (Losartan Potassium) 100 Mg Tablet, 100 MG PO DAILY, (Reported) Entered as Reported by: MARCELINO SAMS on 07/17/19 1501 Rosuvastatin Calcium (Rosuvastatin Calcium) 10 Mg Tablet, 10 MG PO HS, (Reported) Entered as Reported by: NICOLE ZAIDI on 08/31/17 1326 Terazosin HCl (Terazosin HCl) 2 Mg Capsule, 2 MG PO DAILY, (Reported) Entered as Reported by: MARCELINO SAMS on 07/17/19 1501 Ubidecarenone (Co Q-10) 100 Mg Capsule, 100 MG PO DAILY, (Reported) Entered as Reported by: YUNG SAMUEL on 03/11/21 1214 Review of Systems Review of Systems Constitutional: No diaphoresis, No malaise, No weakness EENTM: No eye pain, No dental problems, No throat pain, No throat swelling Respiratory: No cough, No dyspnea on exertion Cardiovascular: No chest pain Gastrointestinal: abdominal pain; No nausea, No vomiting Genitourinary: denies burning, denies discharge; hematuria, pain Musculoskeletal: No back pain, No joint pain Skin: No change in color, No change in hair/nails (GARRICK RODRIGEZ) All Other Systemes Reviewed Negative Unless Noted: Yes (GARRICK RODRIGEZ) Past Uordsut-Bzpttz-Pbvtqv Hx Immunizations Up To Date Tetanus Booster (TDap): More than 5yrs PED Vaccines UTD: No (GARRICK RODRIGEZ) Seasonal Allergies Seasonal Allergies: Yes (GARRICK RODRIGEZ) Past Medical History Surgeries: Yes (FISTULA, turbt, knee scope, shoulder scope) Abdominal, Bladder Surgery, Gallbladder, Orthopedic, Penile Implant, Rectal, Tonsillectomy, Vascular Surgery Respiratory: Yes Sleep Apnea Currently Using CPAP: Yes Cardiac: Yes (ILIAC ARTERY STENTS) High Cholesterol, Hypertension, Peripheral Vascular Neurological: No Reproductive Disorders: Yes (E.D.) Sexually Transmitted Disease: No HIV/AIDS: No Genitourinary: Yes (BLADDER CANCER--TURBT X 2--LAST ONE 07/19/[address] HUMPHRIES. PENILE IMPLANT; ) Prostate Problems, Renal Failure Gastrointestinal: Yes (S/P CHOLECYSTECTOMY; ANAL FISTULA/FISSURE REPAIR; RUPTURED APPENDIX REMOVED) Gastroesophageal Reflux, Gall Bladder Disease Musculoskeletal: Yes (LEFT SHOULDER SURGERY; LEFT KNEE SURGERY) Arthritis, Chronic Back Pain Endocrine: No HEENT: No (GLASSES) Loss of Vision: Denies Hearing Impairment: Denies Cancer: Yes Bladder, Prostate, Skin Did You Recieve Any Treatments: Yes What Type of Treatment Did You: Radiation, Surgical Intervention Psychosocial: No Integumentary: No Blood Disorders: No Adverse Reaction/Blood Tranf: No (HAS HAD BLOOD WITH NO REACTION) (GARRICK RODRIGEZ) Family Medical History Family history: Cardiovascular disease 19 FATHER, Onset:Unknown Family history: Coronary thrombosis 19 FATHER, Onset:Unknown History of - respiratory disease 19 MOTHER, Onset:Unknown G8 SISTER, Onset:Unknown No Family History of: Abdominal aortic aneurysm [place]'s disease Alcoholism Aphasia Cancer Cancer of colon Cataract Chest pain Congenital heart disease Congestive heart failure Cystic fibrosis Dementia Dysphagia Family history: Allergy Family history: Alzheimer's disease Family history: Arthritis Family history: Asthma Family history: Breast disease Family history: Diabetes mellitus Family history: Gastrointestinal disease Family history: Glaucoma Family history: Hypertension Family history: Osteoporosis Family history: Thyroid disorder Headache Hearing loss Heart disease Hereditary disease History of - anemia History of - disorder History of drug abuse Human immunodeficiency virus (HIV) seropositivity Hypercholesterolemia Infertile Kidney disease Malignant neoplasm of lung Myocardial infarction Parkinson's disease Prostate cancer Psychotic disorder Seizure disorder Stroke Tuberculosis Visual impairment Heart Disease, Diabetes (GARRICK RODRIGEZ) Physical Exam Vital Signs Vital Signs - First Documented 01/25/22 21:15 Temp 36.6 Pulse 76 Resp 18 B/P (MAP) 151/80 (103) Pulse Ox 98 O2 Delivery Room Air (SHAKILA RUFFIN) Vital Signs Capillary Refill : (GARRICK RODRIGEZ) Height, Weight, BMI Height: 5'9.00" Weight: 195lbs. 7.0oz. [id number]; 29.51 BMI Method:Stated General Appearance: WD/WN, no apparent distress HEENT: PERRL/EOMI, normal ENT inspection, TMs normal, pharynx normal Neck: non-tender, full range of motion Cardiovascular: regular rate, rhythm, no edema, no gallop, no JVD Respiratory: chest non-tender, lungs clear, normal breath sounds, no respiratory distress, no accessory muscle use Gastrointestinal: normal bowel sounds, non tender, soft, no organomegaly Extremities: normal range of motion, non-tender, normal inspection, no pedal edema Neurologic/Psychiatric: dishcloth folder II-XII nml as tested, no motor/sensory deficits, alert, normal mood/affect, oriented x 3 (GARRICK RODRIGEZ) Progress/Results/Core Measures Suspected Sepsis SIRS Temperature: Pulse: Respiratory Rate: Laboratory Tests 01/25/22 22:05: White Blood Count 11.7H Blood Pressure / Mean: Laboratory Tests 01/25/22 22:05: Creatinine 1.31H, Platelet Count 145, Total Bilirubin 0.2 (GARRICK RODRIGEZ) Results/Orders Lab Results Laboratory Tests Test 01/25/22 21:43 01/25/22 22:05 Range/Units Urine Color RED H Urine Clarity CLOUDY Urine pH 6.5 5-9 Urine Specific [place] 1.020 1.016-1.022 Urine Protein 3+ H NEGATIVE Urine Glucose (UA) NEGATIVE NEGATIVE Urine Ketones TRACE H NEGATIVE Urine Nitrite POSITIVE H NEGATIVE Urine Bilirubin NEGATIVE NEGATIVE Urine Urobilinogen 1.0 < = 1.0 MG/DL Urine Leukocyte Esterase 1+ H NEGATIVE Urine RBC (Auto) 3+ H NEGATIVE Urine RBC TNTC H /HPF Urine WBC 0-2 /HPF Urine Squamous Epithelial Cells 0-2 /HPF Urine Renal Epithelial Cells NONE /HPF Urine Crystals NONE /LPF Urine Bacteria MODERATE H /HPF Urine Casts NONE /LPF Urine Mucus NEGATIVE /LPF Urine Culture Indicated NO White Blood Count 11.7 H 4.3-11.0 10^3/uL Red Blood Count 2.05 L 4.30-5.52 10^6/uL Hemoglobin 6.2 *L 13.3-17.7 g/dL Hematocrit 20 *L 40-54 % Mean Corpuscular Volume 95 80-99 fL Mean Corpuscular Hemoglobin 30 25-34 pg Mean Corpuscular Hemoglobin Concent 32 32-36 g/dL Red Cell Distribution Width 22.2 H 10.0-14.5 % Platelet Count 145 130-400 10^3/uL Mean Platelet Volume 8.8 L 9.0-12.2 fL Immature Granulocyte % (Auto) 2 % Neutrophils (%) (Auto) 80 H 42-75 % Lymphocytes (%) (Auto) 7 L 12-44 % Monocytes (%) (Auto) 11 0-12 % Eosinophils (%) (Auto) 1 0-10 % Basophils (%) (Auto) 0 0-10 % Neutrophils # (Auto) 9.4 H 1.8-7.8 10^3/uL Lymphocytes # (Auto) 0.8 L 1.0-4.0 10^3/uL Monocytes # (Auto) 1.2 H 0.0-1.0 10^3/uL Eosinophils # (Auto) 0.1 0.0-0.3 10^3/uL Basophils # (Auto) 0.0 0.0-0.1 10^3/uL Immature Granulocyte # (Auto) 0.2 H 0.0-0.1 10^3/uL Sodium Level 137 135-145 MMOL/L Potassium Level 3.7 3.6-5.0 MMOL/L Chloride Level 107 98-107 MMOL/L Carbon Dioxide Level 18 L 21-32 MMOL/L Anion Gap 12 5-14 MMOL/L Blood Urea Nitrogen 21 H 7-18 MG/DL Creatinine 1.31 H 0.60-1.30 MG/DL Estimat Glomerular Filtration Rate 59 BUN/Creatinine Ratio 16 Glucose Level 90 70-105 MG/DL Calcium Level 8.2 L 8.5-10.1 MG/DL Corrected Calcium 8.6 8.5-10.1 MG/DL Total Bilirubin 0.2 0.1-1.0 MG/DL Aspartate Amino Transf (AST/SGOT) 15 5-34 U/L Alanine Aminotransferase (ALT/SGPT) 16 0-55 U/L Alkaline Phosphatase 71 40-136 U/L Total Protein 5.7 L 6.4-8.2 GM/DL Albumin 3.5 3.2-4.5 GM/DL (SHAKILA RUFFIN) Medications Given in ED Current Medications Medications Dose Ordered Sig/Markus Route Start Time Stop Time Status Last Admin Dose Admin Lidocaine HCl 10 ml ONCE ONCE TOP 01/25/22 21:30 01/25/22 21:31 DC 01/25/22 21:35 10 ML (SHAKILA RUFFIN) Vital Signs/I&O 01/25/22 01/26/22 01/26/22 01/26/22 21:15 00:35 00:46 00:51 Temp 36.6 36.6 36.6 36.5 Pulse 76 73 74 73 Resp 18 18 18 18 B/P (MAP) 151/80 (103) 155/66 152/67 142/71 Pulse Ox 98 97 97 O2 Delivery Room Air Room Air Room Air Room Air 01/26/22 00:56 Temp 36.5 Pulse 76 Resp 18 B/P (MAP) 154/67 Pulse Ox 96 O2 Delivery Room Air 01/26/22 00:00 Output Total 700 ml Balance -700 ml (SHAKILA RUFFIN) Vital Signs/I&O Capillary Refill : (GARRICK RODRIGEZ) Diagnostic Imaging Diagonstic Imaging: CT Plain Films/CT/US/NM/MRI: abdomen, pelvis Comments Multiple hepatic masses suspicious for hepatic metastatic disease. These were not present in 2019 on comparison study. Small amount of blood clot surrounding the Crum catheter within the urinary bladder. Atrophic right kidney more normal caliber left kidney. Both demonstrate perinephric stranding without hydronephrosis. Diverticulosis with no evidence of diverticulitis. Reviewed: Reviewed [place] Study, Reviewed by Me (SHAKILA RUFFIN) Departure Communication (PCP) Patient presents to ED with decreased urine output with hematuria. History of prostate cancer, bladder cancer with metastasis to the lung. Patient currently follows up with urology at [facility]. Patient had 700 ml of urine in his bladder. Successful catheter placed here in the ED. patient pain removed. CT scan s hows blood product in the bladder. Lesions of the liver concerning for metastasis. No vomiting or diarrhea. Patient states he saw [facility] urology last week had a hemoglobin of 8.8. Hemoglobin today 6.2. Concerning for loss of blood. He states he had an active bleed in his bladder and was recommended cauterization. Had cauterization in the past. Attempted to transfer to [facility] but they did not have beds. Concern for active bleed and patient needing urology evaluation within the next [address] Cheung at [facility] who was not comfortable seeing patient recommended blood transfusion and observation here at our facility. Did contact [facility] in [place] who agreed to transfer and accept patient for urology consult. Patient was discussed with hospital Dr. Carl who accepts patient. Recommend 2 units of blood transfusion. Family agrees with transport. Patient vital signs stable. Patient will be transferred by [facility]. Stable kidney function. Patient found to have a urinary tract infection was given Rocephin. Patient has a port we will access. (GARRICK RODRGIEZ) Impression Primary Impression: GROSS HEMATURIA WITH CLOTS/OUTLET OBSTRUCTION Additional Impression: UTI (urinary tract infection) Disposition: 03 XFER SNF Condition: Stable Transfer Transfer Reason: Exceeds level of care Time Spoke to Accepting Phy: 23:50 Transfer Progress Notes Discussed patient with Dr. Carl hospitalist who accepts patient after discussing patient with urologist who agrees for transfer. Dr. Cielo Acuña Transfer Time: 23:50 Transfer Facility: [facility] Method of Transfer: EMS (GARRICK RODRIGEZ) Departure-Patient Inst. Referrals: NO,LOCAL PHYSICIAN (PCP/Family) Primary Care Physician GARRICK RODRIGEZ Jan 25, 2022 21:29 SHAKILA RUFFIN Jan 26, 2022 01:37
[2022-01-25] MEDS ORDERED: LIDOCAINE UROJET 2% GEL 10 ML PKG TOP ONE (21:30)
[2022-01-25 21:49] LABS: BILIRUBIN,URINE NEGATIVE (NEGATIVE); CLARITY,URINE CLOUDY; COLOR,URINE RED; GLUCOSE, URINE (UA) NEGATIVE (NEGATIVE); KETONES,URINE TRACE (NEGATIVE); LEUKOCYTE ESTERASE ,URINE 1+ (NEGATIVE); NITRITE,URINE POSITIVE (NEGATIVE); PH,URINE 6.5 (5-9); PROTEIN,URINE 3+ (NEGATIVE)
[2022-01-25 22:00] LABS: BACTERIA,URINE MODERATE /HPF; RBC,URINE TNTC /HPF; SQUAMOUS EPITHELIAL CELL,UR 0-2 /HPF; WBC,URINE 0-2 /HPF
[2022-01-25 22:16] LABS: BASOPHILS % (AUTO) 0 % (0-10); EOSINOPHILS # (AUTO) 0.1 10^3/uL (0.0-0.3); EOSINOPHILS % (AUTO) 1 % (0-10); LYMPHOCYTES # (AUTO) 0.8 10^3/uL (1.0-4.0); LYMPHOCYTES % (AUTO) 7 % (12-44); MEAN CORPUSCULAR HEMOGLOBIN 30 pg (25-34); MEAN CORPUSCULAR HGB CONC 32 g/dL (32-36); MEAN CORPUSCULAR VOLUME 95 fL (80-99); MEAN PLATELET VOLUME 8.8 fL (9.0-12.2); MONOCYTES # (AUTO) 1.2 10^3/uL (0.0-1.0); MONOCYTES % (AUTO) 11 % (0-12); NEUTROPHILS # (AUTO) 9.4 10^3/uL (1.8-7.8); NEUTROPHILS % (AUTO) 80 % (42-75); PLATELET COUNT 145 10^3/uL (130-400); WHITE BLOOD COUNT 11.7 10^3/uL (4.3-11.0)
[2022-01-25 22:18] LABS: HEMATOCRIT 20 % (40-54); HEMOGLOBIN 6.2 g/dL (13.3-17.7)
[2022-01-25] MEDS ORDERED: cefTRIAXone 1 GM PRE-MIX 50 ML IV STA (22:29)
[2022-01-25 22:33] LABS: ALBUMIN 3.5 GM/DL (3.2-4.5); BILIRUBIN,TOTAL 0.2 MG/DL (0.1-1.0); CALCIUM 8.2 MG/DL (8.5-10.1); CREATININE SERUM 1.31 MG/DL (0.60-1.30); POTASSIUM 3.7 MMOL/L (3.6-5.0); TOTAL PROTEIN 5.7 GM/DL (6.4-8.2)
[2022-01-26 00:35] VITALS: BP 155/66
[2022-01-26 00:46] VITALS: BP 152/67
[2022-01-26 00:51] VITALS: BP 142/71
[2022-01-26 00:56] VITALS: BP 154/67
--- NOTE | 2022-01-26 06:45 | Diagnostic Imaging Report ---
PROCEDURE: CT abdomen and pelvis without contrast. TECHNIQUE: Multiple contiguous axial images were obtained through the abdomen and pelvis without the use of intravenous contrast. Auto Exposure Controls were utilized during the CT exam to meet ALARA standards for radiation dose reduction. INDICATION: Lower abdominal pain, unable to urinate, history of bladder cancer, prostate cancer, lung cancer. COMPARISON: 10/16/2020 FINDINGS: Lung bases are clear. There is a calcified granuloma in the left lower lobe. The heart is normal in size. The interventricular septum is visible, consistent with anemia. The liver demonstrates a few ill-defined hypodense lesions which appear new since the prior exam. There is one in the superior right lobe measuring up to 2.8 cm. Several other hypodense lesions in the right lobe measuring 2 to 3 cm in size. The spleen appears normal. The pancreas is normal. The adrenal glands are normal. The right kidney is atrophic. The left kidney demonstrates no hydronephrosis. No calculi are seen. The bowel loops are nondistended without obstruction. The appendix is normal. There is diverticulosis of the sigmoid colon without diverticulitis. No lymphadenopathy is seen. A biiliac stent is noted. There is a Crum catheter in the bladder. There appears to be a penile pump as well. There is hyperdense material within the urinary bladder consistent with blood products. IMPRESSION: 1. Multiple ill-defined hypodense lesions in the liver concerning for metastatic disease, new since 2019. 2. Blood products within the urinary bladder. 3. Colonic diverticulosis without diverticulitis. 4. Anemia. No significant changes from the preliminary report. Dictated by: Dictated on workstation # [id number]
== END 2022-01-26 02:31 ==
LOC: EDUNIT# 21:02 → ER 21:07
DX: R31.0 Gross hematuria (principal); N39.0 Urinary tract infection, site not specified; Z85.51 Personal history of malignant neoplasm of bladder
CPT/HCPCS: 51702; 74176; 80053; 81000; 85025; 86850; 86900; 86901; 86920; 99284; P9016; 36415

== ENCOUNTER 2022-03-22 10:50 | Outpatient (RCR) | payer MEDICARE, OTHER ==
[2022-03-25] MEDS ORDERED: CEPH500T PO ×2 (22:00→22:40)
== END 2022-03-30 | disposition home or self-care (01) ==
LOC: ONC 10:50
PROVIDERS: ATTEND Radiology Radiation Oncology
DX: Z51.0 Encounter for antineoplastic radiation therapy (principal); C67.9 Malignant neoplasm of bladder, unspecified; C79.31 Secondary malignant neoplasm of brain; I12.9 Hypertensive chronic kidney disease with stage 1 through stage 4 chronic kidney disease, or unspecified chronic kidney disease; N18.9 Chronic kidney disease, unspecified; Z92.21 Personal history of antineoplastic chemotherapy
CPT/HCPCS: 77290; 77300; 77301; 77334; 77336; 77338; 77373; 77470; 99204

== ENCOUNTER 2022-03-25 19:23 | Emergency (ER) | payer MEDICARE, OTHER ==
[~2022-03-25] VITALS: Ht 172 cm; Wt 72.0 kg
--- NOTE | 2022-03-25 19:38 | ED General ---
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 Patient currently being managed by Dr. Pal oncologist. Had recent radiation for his brain metastasis by Dr. Dias with 3 large super doses over the past month. Increased weakness over the past 2 days. Patient lives at home. Has not been able to get up and walk around. Family has been going over to the house giving patient Ensure. Urinating in a urinal. Denies of any hematuria, decreased urine output, bowel or urine incontinence. Denies of any lower extremity numbness and tingling. According to daughter who is his DPOA at bedside is concerned that patient is not getting around as much and is extremely weak. Had a PET scan performed today and is scheduled to get the results with Dr. Pal tomorrow. Has been in contact with director social to discuss hospice. Patient reports right-sided abdominal pain which she states feels fairly new with lower back pain into his tailbone. Currently on Valium for back pain as well as a steroid placed by oncology for brain lesion. Denies of any vomiting, diarrhea or urinary symptoms. Patient is not currently on palliative or hospice. Patient is a full code (GARRICK RODRIGEZ) Allergies and Home Medications Allergies Coded Allergies: Penicillins (Verified Adverse Reaction, Mild, ORAL THRUSH, 07/17/19) Oral thrush Uncoded Allergies: MORPHINE CAUSES NAUSEA AND VOMITING (Adverse Reaction, Severe, Vomiting, 03/13/21) Patient Home Medication List Home Medication List Reviewed: Yes (GARRICK RODRIGEZ) Allopurinol (Allopurinol) 100 Mg Tablet, 100 MG PO DAILY, (Reported) Entered as Reported by: YUNG SAMUEL on 03/11/21 1210 Amlodipine Besylate (Amlodipine Besylate) 5 Mg Tablet, 5 MG PO DAILY, (Reported) Entered as Reported by: YUNG SAMUEL on 03/11/21 1214 Ascorbic Acid (Vitamin C) 500 Mg Capsule, 500 MG PO DAILY, (Reported) Entered as Reported by: YUNG SAMUEL on 03/11/21 1214 Azithromycin (Zithromax) 250 Mg Tablet, 500 MG PO UD Prescribed by: CHRISTOPHER ORNELAS on 03/13/21 0949 Azithromycin (Zithromax) 250 Mg Tablet, 250 MG PO DAILY Prescribed by: CHRISTOPHER ORNELAS on 03/13/21 0949 C,E,Zinc,Copper 24/Om3/Lut/Dina (Ocuvite Adult 50 Plus Softgel) 1 Each Capsule, 1 EACH PO DAILY, (Reported) Entered as Reported by: YUNG SAMUEL on 03/11/21 1214 Calcium Polycarbophil (Fiber) 625 Mg Tablet, 625 MG PO HS, (Reported) Entered as Reported by: NICOLE ZAIDI on 08/31/17 1326 Cephalexin (Cephalexin) 500 Mg Tablet, 500 MG PO BID Prescribed by: LUZ RIVERA on 03/25/22 2240 Cetirizine HCl (Zyrtec) 10 Mg Tablet, 10 MG PO DAILY, (Reported) Entered as Reported by: YUNG SAMUEL on 03/11/21 1214 Chlorthalidone (Chlorthalidone) 25 Mg Tablet, 25 MG PO DAILY, (Reported) Entered as Reported by: YUNG SAMUEL on 03/11/21 121 Cyanocobalamin (Vitamin B-12) (Vitamin B12) 2,500 Mcg Tablet, 2,500 MCG PO DAILY, (Reported) Entered as Reported by: MARCELINO SAMS on 07/17/19 1501 Hydralazine HCl (Hydralazine HCl) 100 Mg Tablet, 100 MG PO BID, (Reported) Entered as Reported by: YUNG SAMUEL on 03/11/21 1214 Hydrocodone/Acetaminophen (Hydrocodone-Acetamin 5-325 mg) 1 Each Tablet, 1 TAB PO Q4H Prescribed by: CHRISTOPHER ORNELAS on 03/13/21 0949 L. Acidophilus/Dig Enz Cmb 5 (Probiotic-Digestive Enzymes) 1 Each Capsule, 2 CAP PO HS, (Reported) Entered as Reported by: NICOLE ZAIDI on 08/31/17 1326 Losartan Potassium (Losartan Potassium) 100 Mg Tablet, 100 MG PO DAILY, (Reported) Entered as Reported by: MARCELINO SAMS on 07/17/19 1501 Rosuvastatin Calcium (Rosuvastatin Calcium) 10 Mg Tablet, 10 MG PO HS, (Re ported) Entered as Reported by: NICOLE ZAIDI on 08/31/17 1326 Terazosin HCl (Terazosin HCl) 2 Mg Capsule, 2 MG PO DAILY, (Reported) Entered as Reported by: MARCELINO SAMS on 07/17/19 1501 Ubidecarenone (Co Q-10) 100 Mg Capsule, 100 MG PO DAILY, (Reported) Entered as Reported by: YUNG SAMUEL on 03/11/21 1214 Discontinued Medications Cephalexin (Cephalexin) 500 Mg Tablet, 500 MG PO BID Prescribed by: LUZ RIVERA on 03/25/22 2200 Review of Systems Review of Systems Constitutional: No chills, No diaphoresis, No malaise, No weakness EENTM: No blurred vision, No double vision, No mouth pain, No mouth swelling, No throat pain, No throat swelling Respiratory: No cough, No dyspnea on exertion Cardiovascular: No chest pain Gastrointestinal: abdominal pain; No diarrhea, No nausea, No vomiting Genitourinary: No decreased output, No discharge Musculoskeletal: back pain; No joint pain Skin: No change in color, No change in hair/nails (GARRICK RODRIGEZ) All Other Systems Reviewed Negative Unless Noted: Yes (GARRICK RODRIGEZ) Past Bvtobcx-Seanrg-Yvuebm Hx Immunizations Up To Date Tetanus Booster (TDap): More than 5yrs PED Vaccines UTD: No (GARRICK RODRIGEZ) Seasonal Allergies Seasonal Allergies: Yes (GARRICK RODRIGEZ) Past Medical History Surgeries: Yes (FISTULA, turbt, knee scope, shoulder scope) Abdominal, Bladder Surgery, Gallbladder, Orthopedic, Penile Implant, Rectal, Tonsillectomy, Vascular Surgery Respiratory: Yes Sleep Apnea Currently Using CPAP: Yes Cardiac: Yes (ILIAC ARTERY STENTS) High Cholesterol, Hypertension, Peripheral Vascular Neurological: No Reproductive Disorders: Yes (E.D.) Sexually Transmitted Disease: No HIV/AIDS: No Genitourinary: Yes (BLADDER CANCER--TURBT X 2--LAST ONE 07/19/[address] HUMPHRIES. PENILE IMPLANT; ) Prostate Problems, Renal Failure Gastrointestinal: Yes (S/P CHOLECYSTECTOMY; ANAL FISTULA/FISSURE REPAIR; RUPTURED APPENDIX REMOVED) Gastroesophageal Reflux, Gall Bladder Disease Musculoskeletal: Yes (LEFT SHOULDER SURGERY; LEFT KNEE SURGERY) Arthritis, Chronic Back Pain Endocrine: No HEENT: No (GLASSES) Loss of Vision: Denies Hearing Impairment: Denies Cancer: Yes Bladder, Prostate, Skin Did You Recieve Any Treatments: Yes What Type of Treatment Did You: Radiation, Surgical Intervention Psychosocial: No Integumentary: No Blood Disorders: No Adverse Reaction/Blood Tranf: No (HAS HAD BLOOD WITH NO REACTION) (GARRICK RODRIGEZ) Family Medical History Family history: Cardiovascular disease 19 FATHER, Onset:Unknown Family history: Coronary thrombosis 19 FATHER, Onset:Unknown History of - respiratory disease 19 MOTHER, Onset:Unknown G8 SISTER, Onset:Unknown No Family History of: Abdominal aortic aneurysm Providence's disease Alcoholism Aphasia Cancer Cancer of colon Cataract Chest pain Congenital heart disease Congestive heart failure Cystic fibrosis Dementia Dysphagia Family history: Allergy Family history: Alzheimer's disease Family history: Arthritis Family history: Asthma Family history: Breast disease Family history: Diabetes mellitus Family history: Gastrointestinal disease Family history: Glaucoma Family history: Hypertension Family history: Osteoporosis Family history: Thyroid disorder Headache Hearing loss Heart disease Hereditary disease History of - anemia History of - disorder History of drug abuse Human immunodeficiency virus (HIV) seropositivity Hypercholesterolemia Infertile Kidney disease Malignant neoplasm of lung Myocardial infarction Parkinson's disease Prostate cancer Psychotic disorder Seizure disorder Stroke Tuberculosis Visual impairment Heart Disease, Diabetes (GARRICK RODRIGEZ) Physical Exam Vital Signs Vital Signs - First Documented 03/25/22 19:46 Temp 36.7 Pulse 61 Resp 18 B/P (MAP) 138/70 (92) Pulse Ox 98 O2 Delivery Room Air (GODFREY,CALEB K DO) Vital Signs Capillary Refill : (GARRICK RODRIGEZ) Height, Weight, BMI Height: 5'9.00" Weight: 195lbs. 7.0oz. 88.943333wx; 28.00 BMI Method:Stated General Appearance: No Apparent Distress, WD/WN Eyes: Bilateral Eye Normal Inspection, Bilateral Eye PERRL, Bilateral Eye EOMI, Bilateral Eye Abnormal EOM HEENT: PERRL/EOMI, TMs Normal, Pharynx Normal Neck: Full Range of Motion, Normal Inspection, Non Tender, Supple Respiratory: Chest Non Tender, Lungs Clear, Normal Breath Sounds, No Accessory Muscle Use Cardiovascular: Regular Rate, Rhythm, No Edema, No Gallop, No JVD, No Murmur Gastrointestinal: Normal Bowel Sounds, No Organomegaly, No Pulsatile Mass Extremity: Normal Capillary Refill, Normal Inspection (GARRICK RODRIGEZ) Progress/Results/Core Measures Suspected Sepsis SIRS Temperature: Pulse: Respiratory Rate: Blood Pressure / Mean: Laboratory Tests 03/25/22 19:36: INR Comment 1.0 (GARRICK RODRIGEZ) Results/Orders Lab Results Laboratory Tests Test 03/25/22 19:36 Range/Units Prothrombin Time 13.1 12.2-14.7 SEC INR Comment 1.0 0.8-1.4 Activated Partial Thromboplast Time 32 24-35 SEC (GODFREYANGELINAA Rory BLUE) Medications Given in ED Current Medications Medications Dose Ordered Sig/Markus Route Start Time Stop Time Status Last Admin Dose Admin Heparin Sodium (Porcine) 500 unit ONCE ONCE IV 03/25/22 22:30 03/25/22 22:31 DC 03/25/22 22:40 500 UNIT Lorazepam 1 mg ONCE ONCE IVP 03/25/22 22:00 03/25/22 22:03 DC 03/25/22 22:08 1 MG (GODFREYCALEB K ) Vital Signs/I&O 03/25/22 19:46 Temp 36.7 Pulse 61 Resp 18 B/P (MAP) 138/70 (92) Pulse Ox 98 O2 Delivery Room Air (GODFREYCALEB K DO) Vital Signs/I&O Capillary Refill : (GARRICK RODRIGEZ) ECG Comment Sinus rhythm, 62 bpm, QRS duration 85 MS, QTc 396 MS. 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 Lives at home. Not able to get around secondary to weakness. Patient recently had radiation to the brain by Dr. García. Last radiation was last week. Was brought to ED by EMS. On arrival patient vital signs stable. Afebrile. Patient lab work showed normal white blood count with a hemoglobin 7.5. Denies of any hematuria, hematemesis or hematochezia. Platelets were 38,000. Not on any current anticoagulants. Calcium 7.9 with corrected calcium 8.8. Patient has no neurological deficits. Complaint of right side abdominal pain and low back pain which is fairly new. CT of the pelvis was negative for acute abnormality. Liver lesions more prominent. CT scan lumbar spine negative for lesions. Patient was discussed with Dr. Denson who recommended IV fluids and admission and recheck of lab work in the morning. Patient is currently a full code. Not currently on hospice. Concern as patient has been declining over the past 2 weeks. Family has been in contact with hospice and is scheduled to follow-up with Dr. Denson at 930 tomorrow regarding PET scan results performed today and hospice. Discussed admission with Dr. Denson for generalized weakness with rechecking lab work in the morning. This was discussed with Dr. Hicks who felt like if patient is full code and who may require further intervention may need transfer at this time. Patient does not want to be transferred. Discussed this with family and they were okay for patient to go home and follow-up with Dr. Denson tomorrow. Concerned that patient is fairly weak and may not be able to take care of himself at home. Family states they will attempt to help tonight and follow-up with Dr. Denson in the morning regarding further treatment and long-term care for patient. Discussed with family concerning that patient is declining and may need to consider other options. Discussed the importance of continue drinking his Ensure and staying hydrate. Does have Valium and tramadol at home for pain and anxiety. Patieny was requesting a dose for anxiety at this time. He was given Rocephin here 1mg. Will discharge with Keflex. Discussed if not able to get recheck of lab work tomorrow may consider returning for recheck of his lab work here specially his platelets and hemoglobin were low. Dr. Denson recommended no treatment for his platelets at this time. (GARRICK RODRIGEZ) Impression Primary Impression: Generalized weakness Additional Impressions: Cancer Thrombocytopenia Disposition: HOME, SELF-CARE Condition: Stable Admissions Decision to Admit Reason: Admit from ER (General) Decision to Admit/Date: March 25, 2022 Time/Decision to Admit Time: 20:45 (GARRICK RODRIGEZ) Departure-Patient Inst. Decision time for Depature: 20:45 (GARRICK RODRIGEZ) Referrals: ALYSSA DUENAS MD (PCP/Family) Primary Care Physician Patient Instructions: Urinary Tract Infection, Adult (DC) Scripts Cephalexin (Cephalexin) 500 Mg Tablet 500 MG PO BID for 7 Days, #14 TAB Prov: GARRICK RODRIGEZ 03/25/22 ATTENDING PHYSICIAN NOTE: I WAS PHYSICALLY PRESENT ER PHYSICIAN, BUT I WAS NOT INVOLVED IN ANY DECISION MAKING OR ANY CARE OF THIS PATIENT. (CALEB DONAHUE DO) GARRICK RODRIGEZ March 25, 2022 19:38 CALEB DONAHUE DO March 26, 2022 00:05
[2022-03-25] MEDS ORDERED: NS IV 1000 ML 1,000 ML IV STA (19:39)
[2022-03-25 19:43] LABS: BASOPHILS % (AUTO) 0 % (0-10); EOSINOPHILS % (AUTO) 0 % (0-10); HEMATOCRIT 24 % (40-54)
[2022-03-25 19:45] LABS: HEMOGLOBIN 7.5 g/dL (13.3-17.7); LYMPHOCYTES # (AUTO) 0.1 10^3/uL (1.0-4.0); LYMPHOCYTES % (AUTO) 2 % (12-44); MEAN CORPUSCULAR HEMOGLOBIN 30 pg (25-34); MEAN CORPUSCULAR HGB CONC 32 g/dL (32-36); MEAN CORPUSCULAR VOLUME 93 fL (80-99); MEAN PLATELET VOLUME 11.4 fL (9.0-12.2); MONOCYTES # (AUTO) 0.3 10^3/uL (0.0-1.0); MONOCYTES % (AUTO) 5 % (0-12); NEUTROPHILS # (AUTO) 5.4 10^3/uL (1.8-7.8); NEUTROPHILS % (AUTO) 92 % (42-75); WHITE BLOOD COUNT 5.8 10^3/uL (4.3-11.0)
[2022-03-25 19:46] VITALS: BP 138/70
[2022-03-25 19:46] LABS: PLATELET COUNT 38 10^3/uL (130-400)
[2022-03-25 19:55] LABS: ALBUMIN 2.9 GM/DL (3.2-4.5)
[2022-03-25 19:56] LABS: CALCIUM 7.9 MG/DL (8.5-10.1)
[2022-03-25 19:57] LABS: BILIRUBIN,URINE NEGATIVE (NEGATIVE); CLARITY,URINE CLEAR; COLOR,URINE YELLOW; GLUCOSE, URINE (UA) NEGATIVE (NEGATIVE); KETONES,URINE NEGATIVE (NEGATIVE); LEUKOCYTE ESTERASE ,URINE 3+ (NEGATIVE); NITRITE,URINE POSITIVE (NEGATIVE); PROTEIN,URINE TRACE (NEGATIVE)
[2022-03-25 19:58] LABS: TOTAL PROTEIN 4.7 GM/DL (6.4-8.2)
[2022-03-25 19:59] LABS: BILIRUBIN,TOTAL 0.5 MG/DL (0.1-1.0); ELLIPT/OVALOCYTES MODERATE; LYMPHOCYTES % (MANUAL) 4 %; MONOCYTES % (MANUAL) 4 %; NEUTROPHILS % (MANUAL) 92 %; NUCLEATED RED BLOOD CELLS 1; POLYCHROMASIA MARKED; TARGET CELLS MODERATE
[2022-03-25 20:01] LABS: CREATININE SERUM 0.9 MG/DL (0.60-1.30)
[2022-03-25 20:03] LABS: BACTERIA,URINE NEGATIVE /HPF
--- NOTE | 2022-03-25 20:07 | Diagnostic Imaging Report ---
EXAMINATION: Chest 1 view. HISTORY: Cough. COMPARISON: 01/17/2015. FINDINGS: Heart size and pulmonary vasculature are normal. The lungs are clear without consolidation, pleural effusion or pneumothorax. The osseous structures are intact. A left-sided portacatheter is present. IMPRESSION: No acute radiographic abnormality in the chest. Dictated by: Dictated on workstation # [id number]
[2022-03-25 20:13] LABS: PROTHROMBIN TIME PATIENT 13.1 SEC (12.2-14.7)
[2022-03-25] MEDS ORDERED: IOHEXOL 350 MG/ML 100 ML (OMNIPAQUE 350) VIAL IV ONE (20:30)
[2022-03-25] MEDS ORDERED: CATHETER FLUSH 10 ML SYR IV PRN (20:30)
[2022-03-25] MEDS ORDERED: NS 100 ML (IVPB) BAG IV ONE (20:30)
--- NOTE | 2022-03-25 21:30 | Diagnostic Imaging Report ---
EXAMINATION: CT abdomen and pelvis without contrast. TECHNIQUE: Multiple contiguous axial images were obtained through the abdomen and pelvis without the use of intravenous contrast. All CT scans use one or more of the following dose optimizing techniques: automated exposure control, MA and/or KvP adjustment based on patient size and exam type or iterative reconstruction. HISTORY: Right sided abd pain. COMPARISON: 01/25/2022. FINDINGS: Lung bases: The lung bases are clear. Solid organs: There is increasing heterogeneous attenuation seen throughout the liver. The gallbladder is normal. There is no biliary ductal dilation. Pancreas is normal. Spleen is normal. Adrenal glands are normal. There is asymmetric right renal atrophy. No hydronephrosis. Left kidney is unremarkable. Bowel: The stomach and small bowel are normal without obstruction. Scattered colonic diverticulosis. The appendix is normal. Peritoneum: There is no intraperitoneal free fluid or free air. No suspicious lymphadenopathy. Vasculature: Calcification of the aorta without aneurysm. Common iliac stents are present. Musculoskeletal: No suspicious osseous lesion or compression fracture. Pelvis: Prostate gland is unremarkable. Penile prosthesis is present. The urinary bladder is normal. IMPRESSION: 1. No acute abnormality in the abdomen or pelvis. 2. Increasing heterogeneous attenuation of the liver. This could be further evaluated with MRI of the abdomen with Gadavist IV contrast. 3. Colonic diverticulosis. Dictated by: Dictated on workstation # [id number]
--- NOTE | 2022-03-25 21:31 | Diagnostic Imaging Report ---
EXAMINATION: CT lumbar spine without contrast. TECHNIQUE: Multiple contiguous axial images were obtained through the lumbar spine without the use of intravenous contrast. Sagittal and coronal reformations were then performed. All CT scans use one or more of the following dose optimizing techniques: automated exposure control, MA and/or KvP adjustment based on patient size and exam type or iterative reconstruction. HISTORY: Back pain. COMPARISON: 06/27/2017. FINDINGS: The alignment of the lumbar spine is normal. Vertebral body heights are normal and no fracture is seen. Facet joints are normal. Disc heights are normal. There is no spinal canal stenosis. Limited views of the abdomen and pelvis show no soft tissue abnormality. The aorta is normal. IMPRESSION: No acute osseous abnormality of the lumbar spine. Dictated by: Dictated on workstation # [id number]
[2022-03-25] MEDS ORDERED: cefTRIAXone 1 GM PRE-MIX 50 ML IV STA (21:56)
[2022-03-25] MEDS ORDERED: CEPH500T PO ×2 (22:00→22:40)
[2022-03-25] MEDS ORDERED: LORazepam INJ 2 MG/ML (ATIVAN) VIAL IVP ONE (22:00)
[2022-03-25] MEDS ORDERED: HEParin (CENTRAL IV FLUSH) 500 UNIT/5 ML SYR IV ONE (22:30)
== END 2022-03-25 23:14 | disposition home or self-care (01) ==
LOC: EDUNIT# 19:23 → ER 19:24
DX: D69.6 Thrombocytopenia, unspecified (principal); C34.90 Malignant neoplasm of unspecified part of unspecified bronchus or lung; C79.31 Secondary malignant neoplasm of brain; C78.7 Secondary malignant neoplasm of liver and intrahepatic bile duct; F41.9 Anxiety disorder, unspecified; G47.30 Sleep apnea, unspecified; G89.29 Other chronic pain; M54.9 Dorsalgia, unspecified; Z85.51 Personal history of malignant neoplasm of bladder; Z85.46 Personal history of malignant neoplasm of prostate; Z85.820 Personal history of malignant melanoma of skin; Z98.890 Other specified postprocedural states; Z90.49 Acquired absence of other specified parts of digestive tract; Z99.89 Dependence on other enabling machines and devices; Z79.899 Other long term (current) drug therapy
CPT/HCPCS: 36415; 71045; 72131; 74176; 80053; 81000; 83690; 83735; 85007; 85027; 85610; 85730; 87077; 87088; 87186

== ENCOUNTER 2022-04-01 12:23 | Inpatient (IN) | payer MEDICARE, OTHER ==
[~2022-04-01] VITALS: Ht 172.7 cm; Wt 79.0 kg
[2022-04-01] VITALS (14 sets, daily range): BP systolic 73–117; BP diastolic 46–98
[~2022-04-01 12:23] MED LIST changes: +CEPH500T PO
[2022-04-01 13:11] LABS: PROTHROMBIN TIME PATIENT 14.1 SEC (12.2-14.7)
[2022-04-01 13:12] LABS: ALBUMIN 2.6 GM/DL (3.2-4.5); POTASSIUM 3.5 MMOL/L (3.6-5.0)
[2022-04-01 13:13] LABS: CALCIUM 7.5 MG/DL (8.5-10.1)
[2022-04-01 13:14] LABS: TOTAL PROTEIN 4.2 GM/DL (6.4-8.2)
[2022-04-01 13:16] LABS: BILIRUBIN,TOTAL 0.3 MG/DL (0.1-1.0)
[2022-04-01 13:18] LABS: CREATININE SERUM 1.12 MG/DL (0.60-1.30)
[2022-04-01] MEDS ORDERED: NS IV 1000 ML 1,000 ML IV SCH (13:30)
--- NOTE | 2022-04-01 13:32 | ED General ---
General Chief Complaint: Cardiac/General Problems Stated Complaint: LOW HEMOGLOBIN, Source of Information: Patient, Family (son) Exam Limitations: No Limitations History of Present Illness Date Seen by Provider: Apr 01, 2022 Time Seen by Provider: 12:32 Initial Comments Patient is a 71-year-old male with a history of metastatic bladder cancer presents to the emergency department from the [facility] center with a chief complaint of hemoglobin 6.6, profound generalized weakness malaise and fatigue. Patient was seen in the emergency department 2 or 3 days ago. And diagnosed with a urinary tract infection. He has been taking Keflex. Son reports that he has had "dark dark brown" stools for about a week. Patient states that he has had previous colonoscopy within the last few years. He is recently undergone radiation treatment for his cancer. He is pending starting chemotherapy. No fevers or chills. He has had right upper abdominal pain. His appetite has been diminished. Per his son he spends most of his time in bed and he tries to get him up about 4 times a day. No fevers, chest pain or SOB. All other ROS reviewed and negative except as stated. Timing/Duration: Constant, Getting Worse Severity: Severe Associated Systoms: Other (back pain; Rt upper abdomen pain) Allergies and Home Medications Allergies Coded Allergies: Penicillins (Verified Adverse Reaction, Mild, ORAL THRUSH, 07/17/19) Oral thrush Uncoded Allergies: MORPHINE CAUSES NAUSEA AND VOMITING (Adverse Reaction, Severe, Vomiting, 03/13/21) Patient Home Medication List Home Medication List Reviewed: Yes Allopurinol (Allopurinol) 100 Mg Tablet, 100 MG PO DAILY, (Reported) Entered as Reported by: YUNG SAMUEL on 03/11/21 1210 Amlodipine Besylate (Amlodipine Besylate) 5 Mg Tablet, 5 MG PO DAILY, (Reported) Entered as Reported by: UYNG SAMUEL on 03/11/21 1214 Ascorbic Acid (Vitamin C) 500 Mg Capsule, 500 MG PO DAILY, (Reported) Entered as Reported by: YUNG SAMUEL on 03/11/21 1214 Azithromycin (Zithromax) 250 Mg Tablet, 500 MG PO UD Prescribed by: CHRISTOPHER ORNELAS on 03/13/21 0949 Azithromycin (Zithromax) 250 Mg Tablet, 250 MG PO DAILY Prescribed by: CHRISTOPHER ORNELAS on 03/13/21 0949 C,E,Zinc,Copper 24/Om3/Lut/Dina (Ocuvite Adult 50 Plus Softgel) 1 Each Capsule, 1 EACH PO DAILY, (Reported) Entered as Reported by: YUNG SAMUEL on 03/11/21 1214 Calcium Polycarbophil (Fiber) 625 Mg Tablet, 625 MG PO HS, (Reported) Entered as Reported by: NICOLE ZAIDI on 08/31/17 1326 Cephalexin (Cephalexin) 500 Mg Tablet, 500 MG PO BID Prescribed by: LUZ RIVERA on 03/25/22 2240 Cetirizine HCl (Zyrtec) 10 Mg Tablet, 10 MG PO DAILY, (Reported) Entered as Reported by: YUNG SAMUEL on 03/11/21 1214 Chlorthalidone (Chlorthalidone) 25 Mg Tablet, 25 MG PO DAILY, (Reported) Entered as Reported by: YUNG SAMUEL on 03/11/21 1214 Cyanocobalamin (Vitamin B-12) (Vitamin B12) 2,500 Mcg Tablet, 2,500 MCG PO DAILY, (Reported) Entered as Reported by: MARCELINO SAMS on 07/17/19 1501 Hydralazine HCl (Hydralazine HCl) 100 Mg Tablet, 100 MG PO BID, (Reported) Entered as Reported by: YUNG SAMUEL on 03/11/21 1214 Hydrocodone/Acetaminophen (Hydrocodone-Acetamin 5-325 mg) 1 Each Tablet, 1 TAB PO Q4H Prescribed by: CHRISTOPHER ORNELAS on 03/13/21 0949 L. Acidophilus/Dig Enz Cmb 5 (Probiotic-Digestive Enzymes) 1 Each Capsule, 2 CAP PO HS, (Reported) Entered as Reported by: NICOLE ZAIDI on 08/31/17 1326 Losartan Potassium (Losartan Potassium) 100 Mg Tablet, 100 MG PO DAILY, (Reported) Entered as Reported by: MARCELINO SAMS on 07/17/19 1501 Rosuvastatin Calcium (Rosuvastatin Calcium) 10 Mg Tablet, 10 MG PO HS, (Reported) Entered as Reported by: NICOLE ZAIDI on 08/31/17 1326 Terazosin HCl (Terazosin HCl) 2 Mg Capsule, 2 MG PO DAILY, (Reported) Entered as Reported by: MARCELINO SAMS on 07/17/19 1501 Ubidecarenone (Co Q-10) 100 Mg Capsule, 100 MG PO DAILY, (Reported) Entered as Reported by: YUNG SAMUEL on 03/11/21 1214 Discontinued Medications Cephalexin (Cephalexin) 500 Mg Tablet, 500 MG PO BID Prescribed by: LUZ RIVERA on 03/25/22 2200 Review of Systems Review of Systems Constitutional: see HPI, malaise, weakness EENTM: no symptoms reported Respiratory: no symptoms reported Cardiovascular: no symptoms reported Gastrointestinal: abdominal pain (RUQ), loss of appetite Genitourinary: no symptoms reported Musculoskeletal: back pain Skin: no symptoms reported Psychiatric/Neurological: Weakness (generalized) All Other Systems Reviewed Negative Unless Noted: Yes Past Lfgjcgf-Ckjqbc-Cnioam Hx Patient Social History Tobacco Use?: No Smoking Status: Former Smoker Smokeless Tobacco Frequency: Current Everyday User Use of E-Cig and/or Vaping dev: No Substance use?: No Alcohol Use?: No Pt feels they are or have been: No Immunizations Up To Date Tetanus Booster (TDap): More than 5yrs PED Vaccines UTD: No Influenza Vaccine Up-to-Date: Yes; Up-to-Date First/Initial COVID19 Vaccinat: unknown date Second COVID19 Vaccination Cruz: unknown date COVID19 Vaccine Tagman: J & J Seasonal Allergies Seasonal Allergies: Yes Past Medical History Surgery/Hospitalization HX: pt had PET scan today. hx of cancer with METS Surgeries: Yes (FISTULA, turbt, knee scope, shoulder scope) Abdominal, Bladder Surgery, Gallbladder, Orthopedic, Penile Implant, Rectal, Tonsillectomy, Vascular Surgery Respiratory: Yes Sleep Apnea Currently Using CPAP: Yes Cardiac: Yes (ILIAC ARTERY STENTS) High Cholesterol, Hypertension, Peripheral Vascular Neurological: No Reproductive Disorders: Yes (E.D.) Sexually Transmitted Disease: No HIV/AIDS: No Genitourinary: Yes (BLADDER CANCER--TURBT X 2--LAST ONE 07/19/[address] HUMPHRIES. PENILE IMPLANT; ) Prostate Problems, Renal Failure Gastrointestinal: Yes (S/P CHOLECYSTECTOMY; ANAL FISTULA/FISSURE REPAIR; RUPTU RED APPENDIX REMOVED) Gastroesophageal Reflux, Gall Bladder Disease Musculoskeletal: Yes (LEFT SHOULDER SURGERY; LEFT KNEE SURGERY) Arthritis, Chronic Back Pain Endocrine: No HEENT: No (GLASSES) Loss of Vision: Denies Hearing Impairment: Denies Cancer: Yes Bladder, Prostate, Skin Did You Recieve Any Treatments: Yes What Type of Treatment Did You: Radiation, Surgical Intervention Psychosocial: No Integumentary: No Blood Disorders: No Adverse Reaction/Blood Tranf: No (HAS HAD BLOOD WITH NO REACTION) Family Medical History Family history: Cardiovascular disease 19 FATHER, Onset:Unknown Family history: Coronary thrombosis 19 FATHER, Onset:Unknown History of - respiratory disease 19 MOTHER, Onset:Unknown G8 SISTER, Onset:Unknown No Family History of: Abdominal aortic aneurysm Rogerio's disease Alcoholism Aphasia Cancer Cancer of colon Cataract Chest pain Congenital heart disease Congestive heart failure Cystic fibrosis Dementia Dysphagia Family history: Allergy Family history: Alzheimer's disease Family history: Arthritis Family history: Asthma Family history: Breast disease Family history: Diabetes mellitus Family history: Gastrointestinal disease Family history: Glaucoma Family history: Hypertension Family history: Osteoporosis Family history: Thyroid disorder Headache Hearing loss Heart disease Hereditary disease History of - anemia History of - disorder History of drug abuse Human immunodeficiency virus (HIV) seropositivity Hypercholesterolemia Infertile Kidney disease Malignant neoplasm of lung Myocardial infarction Parkinson's disease Prostate cancer Psychotic disorder Seizure disorder Stroke Tuberculosis Visual impairment Heart Disease, Diabetes Physical Exam Vital Signs Capillary Refill : Less Than 3 Seconds Height, Weight, BMI Height: 5'9.00" Weight: 195lbs. 7.0oz. 88.524957pi; 24.00 BMI Method:Stated General Appearance: No Apparent Distress, Other (appears ill) Eyes: Bilateral Eye Conjunctivae Pale HEENT: Other (dry oral mucosa) Neck: Normal Inspection Respiratory: Lungs Clear, Normal Breath Sounds, No Accessory Muscle Use, No Respiratory Distress Cardiovascular: Regular Rate, Rhythm, Other (brisk cap refill) Gastrointestinal: Soft, Tenderness (mild diffuse tenderness to palpation) Rectal: Other (shallow ulcer with white base at 7 oclock region at rectum. Dark brown stool - heme positive) Extremity: Normal Capillary Refill, Normal Range of Motion Neurologic/Psychiatric: Alert, Oriented x3, No Motor/Sensory Deficits, Depressed Affect Skin: Warm/Dry, Pallor Focused Exam Lactate Level 04/01/22 12:45: Lactic Acid Level 2.82*H Lactic Acid Level Laboratory Tests Test 04/01/22 12:45 Lactic Acid Level 2.82 MMOL/L (0.50-2.00) *H Progress/Results/Core Measures Suspected Sepsis SIRS Temperature: Pulse: Respiratory Rate: Blood Pressure / Mean: 04/01/22 12:45: Lactic Acid Level 2.82*H Laboratory Tests 04/01/22 12:45: Creatinine 1.12, INR Comment 1.0, Total Bilirubin 0.3 Results/Orders Lab Results Laboratory Tests Test 04/01/22 12:45 Range/Units Prothrombin Time 14.1 12.2-14.7 SEC INR Comment 1.0 0.8-1.4 Activated Partial Thromboplast Time 28 24-35 SEC Sodium Level 138 135-145 MMOL/L Potassium Level 3.5 L 3.6-5.0 MMOL/L Chloride Level 106 98-107 MMOL/L Carbon Dioxide Level 21 21-32 MMOL/L Anion Gap 11 5-14 MMOL/L Blood Urea Nitrogen 39 H 7-18 MG/DL Creatinine 1.12 0.60-1.30 MG/DL Estimat Glomerular Filtration Rate 71 BUN/Creatinine Ratio 35 Glucose Level 115 H 70-105 MG/DL Lactic Acid Level 2.82 *H 0.50-2.00 MMOL/L Calcium Level 7.5 L 8.5-10.1 MG/DL Corrected Calcium 8.6 8.5-10.1 MG/DL Total Bilirubin 0.3 0.1-1.0 MG/DL Aspartate Amino Transf (AST/SGOT) 194 H 5-34 U/L Alanine Aminotransferase (ALT/SGPT) 300 H 0-55 U/L Alkaline Phosphatase 184 H 40-136 U/L Total Protein 4.2 L 6.4-8.2 GM/DL Albumin 2.6 L 3.2-4.5 GM/DL My Orders Orders - TRISHA DUKES MD Comprehensive Metabolic Panel (04/01/22 12:48) Blood Culture (04/01/22 12:48) Sputum Culture (04/01/22 12:48) Urinalysis (04/01/22 12:48) Urine Culture (04/01/22 12:48) Protime With Inr (04/01/22 12:48) Partial Thromboplastin Time (04/01/22 12:48) Chest 1 View, Ap/Pa Only (04/01/22 12:48) Ed Iv/Invasive Line Start (04/01/22 12:48) Ed Iv/Invasive Line Start (04/01/22 12:48) Vital Signs Adult Sepsis Patie Q15M (04/01/22 12:48) O2 (04/01/22 12:48) Remove Rings In Anticipation O (04/01/22 12:48) Lactic Acid Analyzer (04/01/22 12:48) Type And Screen (04/01/22 13:17) Red Cells Leukocytes Reduced (04/01/22 13:17) Ns Iv 1000 Ml (Sodium Chloride 0.9%) (04/01/22 13:30) Vital Signs/I&O Capillary Refill : Less Than 3 Seconds Point of Care Testing Fecal Occult: Positive Progress Note : Time: 13:33 Progress Note Per review of the medical record the patient grew out Pseudomonas in his urine from his most recent urinalysis. He was started on Keflex. Cultures and repeat urine obtained today. Currently heart rate is 60, blood pressure 97/57 and oxygen saturation 98% on room air. The patient's respirations are even and unlabored. He is alert and oriented. He does not appear ill. Case has been discussed with Dr. Gale who accepts the patient for admission. Departure Communication (Admissions) Time/Spoke to Admitting Phy: 13:[address] Gale Impression Primary Impression: Sepsis Qualified Codes: A41.9 - Sepsis, unspecified organism Additional Impressions: Urinary tract infection Qualified Codes: N39.0 - Urinary tract infection, site not specified Metastatic urothelial carcinoma Disposition: ADMITTED INPATIENT Condition: Stable Admissions Decision to Admit Reason: Admit from ER (General) Decision to Admit/Date: Apr 01, 2022 Time/Decision to Admit Time: 13:56 Departure-Patient Inst. Referrals: ALYSSA DUENAS MD (PCP/Family) Primary Care Physician TRISHA DUKES MD Apr 01, 2022 13:32
--- NOTE | 2022-04-01 13:39 | Diagnostic Imaging Report ---
INDICATION: Hypotension. COMPARISON: 03/25/2022 and 01/17/2015 TECHNIQUE: Single radiograph of the chest dated 04/01/2022. FINDINGS: Left-sided Port-A-Cath is again identified, appearing similar to the prior examination. The cardiac silhouette is within normal limits in size. No significant pulmonary vascular congestion. 3 cm nodular density overlying the left upper lung is again identified, appearing similar to the prior examination. Calcified granuloma overlying the left lung base. The lungs otherwise appear clear. No pleural effusion. No pneumothorax. No acute osseous abnormality. IMPRESSION: Persistent 3 cm left upper lung pulmonary nodule. Additional stable findings as described above with left-sided Port-A-Cath in place. Dictated by: Dictated on workstation # [id number]
[2022-04-01] MEDS ORDERED: ONDANSETRON 4 MG/2 ML (SDV) Z0FRAN IVP ONE (14:00)
[2022-04-01] MEDS ORDERED: fentaNYL INJ 100 MCG/2 ML AMP IVP ONE (14:00)
--- NOTE | 2022-04-01 14:25 | History & Physical-Hospitalist ---
History of Present Illness HPI/Chief Complaint Patient is a 71-year-old male with past medical history of hypertension, metastatic bladder cancer, brain mets, anemia who presented to the ER from oncology clinic due to hypotension and anemia. He had labs drawn today which revealed a hemoglobin of 6.6 and his blood pressure was 72/40 in their clinic. With fluids his blood pressure improved to 90s over 60s but he still feels very weak and is slightly tachycardic. His only complaint is that he would like his socks off and his door shut so it's not so bright. Source: patient Date Seen 04/01/22 Time Seen by a Provider: 14:20 Attending Physician Yohan Coronado MD PCP Admitting Physician: Magi Gale MD Attending Physician: Magi Gale MD Referring Physician Date of Admission Apr 01, 2022 at 14:08 Home Medications & Allergies Home Medications Reviewed patient Home Medication Reconciliation performed by pharmacy medication reconciliations wet process technician and/or nursing. Patients Allergies have been reviewed. Allergies Allergies Coded Allergies morphine (Unverified Adverse Reaction, Severe, N\\V, 04/01/22) Penicillins (Verified Adverse Reaction, Mild, ORAL THRUSH, 07/17/19) Oral thrush Past Jxprbpm-Kpwape-Clokkk Hx Patient Social History Tobacco Use?: No Smoking Status: Former Smoker Smokeless Tobacco Frequency: Current Everyday User Use of E-Cig and/or Vaping dev: No Substance use?: No Alcohol Use?: No Pt feels they are or have been: No Immunizations Up To Date Date of Influenza Vaccine: Aug 07, 2020 First/Initial COVID19 Vaccinat: unknown date Second COVID19 Vaccination Cruz: unknown date Tetanus Booster (TDap): Unknown Hepatitis A: No Hepatitis B: No PED Vaccines UTD: No Date of Pneumonia Vaccine: Aug 29, 2018 Seasonal Allergies Seasonal Allergies: Yes Current Status Advance Directives: No Primary Language: Urdu Past Medical History Surgeries: Abdominal, Bladder Surgery, Gallbladder, Orthopedic, Penile Implant, Rectal, Tonsillectomy, Vascular Surgery Sleep Apnea Currently Using CPAP: Yes High Cholesterol, Hypertension, Peripheral Vascular Sexually Transmitted Disease: No HIV/AIDS: No Prostate Problems, Renal Failure Gastroesophageal Reflux, Gall Bladder Disease Arthritis, Chronic Back Pain Loss of Vision: Denies Hearing Impairment: Denies Bladder, Prostate, Skin Did You Recieve Any Treatments: Yes What Type of Treatment Did You: Radiation, Surgical Intervention Blood Disorders: No Adverse Reaction/Blood Tranf: No (HAS HAD BLOOD WITH NO REACTION) Family Medical History Family history: Cardiovascular disease 19 FATHER, Onset:Unknown Family history: Coronary thrombosis 19 FATHER, Onset:Unknown History of - respiratory disease 19 MOTHER, Onset:Unknown G8 SISTER, Onset:Unknown No Family History of: Abdominal aortic aneurysm Rogerio's disease Alcoholism Aphasia Cancer Cancer of colon Cataract Chest pain Congenital heart disease Congestive heart failure Cystic fibrosis Dementia Dysphagia Family history: Allergy Family history: Alzheimer's disease Family history: Arthritis Family history: Asthma Family history: Breast disease Family history: Diabetes mellitus Family history: Gastrointestinal disease Family history: Glaucoma Family history: Hypertension Family history: Osteoporosis Family history: Thyroid disorder Headache Hearing loss Heart disease Hereditary disease History of - anemia History of - disorder History of drug abuse Human immunodeficiency virus (HIV) seropositivity Hypercholesterolemia Infertile Kidney disease Malignant neoplasm of lung Myocardial infarction Parkinson's disease Prostate cancer Psychotic disorder Seizure disorder Stroke Tuberculosis Visual impairment Heart Disease, Diabetes Review of Systems Constitutional: No chills, No fever; malaise, weakness EENTM: no symptoms reported Respiratory: short of breath Cardiovascular: no symptoms reported Gastrointestinal: see HPI, melena Genitourinary: no symptoms reported Musculoskeletal: no symptoms reported Skin: no symptoms reported Psychiatric/Neurological: No Symptoms Reported Physical Exam Physical Exam Vital Signs Vital Signs - First Documented 04/01/22 04/01/22 04/01/22 04/01/22 12:30 12:45 14:37 16:50 Temp 36.2 Pulse 58 Resp 18 B/P (MAP) 98/61 (73) Pulse Ox 99 O2 Delivery Room Air Capillary Refill : Less Than 3 Seconds Height, Weight, BMI Height: 5'9.00" Weight: 195lbs. 7.0oz. [id number]; 24.00 BMI Method:Stated General Appearance: No Apparent Distress, Chronically ill, Thin HEENT: PERRL/EOMI, Moist Mucous Membranes; No Scleral Icterus (L), No Scleral Icterus (R) Neck: Normal Inspection, Supple Respiratory: Lungs Clear, No Accessory Muscle Use, No Respiratory Distress Cardiovascular: Regular Rate, Rhythm, No JVD, No Murmur Gastrointestinal: Normal Bowel Sounds, Soft Extremity: Normal Capillary Refill, No Calf Tenderness, No Pedal Edema Neurologic/Psychiatric: Alert, Oriented x3, Normal Mood/Affect Results Results/Procedures Labs Laboratory Tests 04/01/22 12:45 04/01/22 23:15 04/02/22 05:29 Patient resulted labs reviewed. Assessment/Plan Admission Diagnosis GI bleed Admission Status: Inpatient Order (span 2 midnights) Reason for Inpatient Admission: see below Assessment and Plan GI Bleed Hemorrhagic shock T&C for 1 unit, 1 on hold IV Fluids Admit to ICU for possible pressors PPI Surgery consult, discussed with Dr Leroy I also updated his PCP Dr Booker Metastatic bladder cancer to brain Follows with Dr Barksdale, discussed with him today Consult him completed radiation, has not completed any chemo for this reportedly had chemo for lung cancer? Poor prognosis UTI with sepsis lactic up but likely confounded by anemia Continue Cefepime per sensitivities from 03/25 DVT ppx: SCDs only for anemia Diagnosis/Problems Diagnosis/Problems (1) Upper GI bleed (2) Hemorrhagic shock (3) Metastatic urothelial carcinoma Status: Acute (4) Urinary tract infection Status: Acute Qualifiers: Urinary tract infection type: site unspecified Hematuria presence: without hematuria Qualified Codes: N39.0 - Urinary tract infection, site not specified (5) Thrombocytopenia Status: Acute (6) Generalized weakness Status: Acute Copy Copies To 1: MAGI Fish MD Apr 01, 2022 14:25
[2022-04-01] MEDS ORDERED: CATHETER FLUSH 10 ML SYR IVP PRN (14:45)
[2022-04-01] MEDS ORDERED: ONDANSETRON 4 MG/2 ML (SDV) Z0FRAN IV PRN (14:45)
[2022-04-01] MEDS ORDERED: NS IV 500 ML 500 ML IV SCH (14:45)
[2022-04-01] MEDS: NS IV 1000 ML 1,000 ML IV SCH (16:10)
[2022-04-01] MEDS: CEFEPIME 1,000 MG/NS 50 ML IVPB IV SCH ×4 (16:12→20:31)
--- NOTE | 2022-04-01 18:46 | Tele-ICU Consult ---
History of Present Illness History of Present Illness Date Seen by Provider: Apr 01, 2022 Time Seen by Provider: 18:46 Date of Admission (Tele-ICU Physician , consultation) Available chart/ vitals / labs / Images reviewed H&P is from ER notes Patient's information available about PMH, Shx, Fhx allergy reviewed in EMR. ROS as per chart and RN report Now in ICU, hemodynamically stable Video assessment done using teleICU camera, rest of exam as per RN Discussed with RN. 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 Discussed with RN to reach out if any questions or concerns A total of 31 minutes of critical care time was devoted to this patient today, required to treat and/or prevent further deterioration of critical care condition ( as above Allergies and Home Medications Allergies Coded Allergies: morphine (Unverified Adverse Reaction, Severe, N\\V, 04/01/22) Penicillins (Verified Adverse Reaction, Mild, ORAL THRUSH, 07/17/19) Oral thrush Home Medications Allopurinol 100 Mg Tablet, 100 MG PO DAILY, (Reported) Amlodipine Besylate 5 Mg Tablet, 5 MG PO DAILY, (Reported) Ascorbic Acid 500 Mg Capsule, 500 MG PO DAILY, (Reported) Azithromycin 250 Mg Tablet, 500 MG PO UD TAKE 2 TABLETS TODAY, THEN TAKE 1 TABLET DAILY FOR 4 MORE DAYS Prescribed by: CHRISTOPHER ORNELAS on 03/13/21948 Azithromycin 250 Mg Tablet, 250 MG PO DAILY Prescribed by: CHRISTOPHER ORNELAS on 03/13/21948 C,E,Zinc,Copper 24/Om3/Lut/Dina 1 Each Capsule, 1 EACH PO DAILY, (Reported) Calcium Polycarbophil 625 Mg Tablet, 625 MG PO HS, (Reported) Cephalexin 500 Mg Tablet, 500 MG PO BID Prescribed by: LUZ RIVERA on 03/25/22 7130 Cetirizine HCl 10 Mg Tablet, 10 MG PO DAILY, (Reported) Chlorthalidone 25 Mg Tablet, 25 MG PO DAILY, (Reported) Cyanocobalamin (Vitamin B-12) 2,500 Mcg Tablet, 2,500 MCG PO DAILY, (Reported) Hydralazine HCl 100 Mg Tablet, 100 MG PO BID, (Reported) Hydrocodone/Acetaminophen 1 Each Tablet, 1 TAB PO Q4H Prescribed by: KAVITHA KEIM on 03/13/21 0949 L. Acidophilus/Dig Enz Cmb 5 1 Each Capsule, 2 CAP PO HS, (Reported) Losartan Potassium 100 Mg Tablet, 100 MG PO DAILY, (Reported) Rosuvastatin Calcium 10 Mg Tablet, 10 MG PO HS, (Reported) Terazosin HCl 2 Mg Capsule, 2 MG PO DAILY, (Reported) Ubidecarenone 100 Mg Capsule, 100 MG PO DAILY, (Reported) Past Medical/Social/Family Hx Patient Social History Tobacco Use?: Yes Tobacco type used: Cigarettes Smoking Status: Current Everyday Smoker Smokeless Tobacco Frequency: Current Everyday User Use of E-Cig and/or Vaping dev: No Substance use?: No Alcohol Use?: No Pt stated abuse/neglect: No Immunizations Up To Date Influenza Vaccine Up-to-Date: No; Not Current First/Initial COVID19 Vaccinat: 2021 Second COVID19 Vaccination Cruz: unknown date Tetanus Booster (TDap): Unknown Hepatitis A: No Hepatitis B: No TB Skin Test: None Date of Pneumonia Vaccine: Aug 29, 2018 Current Status Advance Directives: No Advance Directive Location: Family to bring in copy Communicates: Verbally Primary Language: Algerian Preferred Spoken Language: Algerian Sensory deficits: Vision impairment Implanted or Applied Medical D: CPAP, Port-a-cath, Stents Review of Systems Constitutional: see HPI Focused Exam Lactate Level 04/01/22 12:45: Lactic Acid Level 2.82*H 04/01/22 15:00: Lactic Acid Level 2.14*H 04/01/22 17:58: Lactic Acid Level 2.10*H Height, Weight, BMI Height: 5'9.00" Weight: 195lbs. 7.0oz. [id number]; 26.45 BMI Method:Stated Lactic Acid Level Laboratory Tests Test 04/01/22 15:00 04/01/22 17:58 Lactic Acid Level 2.14 MMOL/L (0.50-2.00) *H 2.10 MMOL/L (0.50-2.00) *H Exam Exam Patient acknowledged, consented, and participated in this virtual visit which was conducted using real time audio/video Vital Signs Date Time Temp Pulse Resp B/P (MAP) Pulse Ox O2 Delivery O2 Flow Rate FiO2 04/01/22 18:00 61 14 100/52 98 Room Air 04/01/22 17:09 99 Room Air 04/01/22 17:05 37.4 66 15 99/60 99 Room Air 04/01/22 17:00 65 12 103/58 99 Room Air 04/01/22 16:50 36.6 62 12 107/56 99 Room Air 04/01/22 16:00 89 16 112/56 (74) 100 04/01/22 15:23 35.9 04/01/22 15:00 64 10 108/58 (75) 100 04/01/22 14:45 61 16 73/46 (55) 100 04/01/22 14:39 62 04/01/22 14:37 36.2 58 18 104/60 99 04/01/22 14:30 117/98 (104) 98 04/01/22 14:00 98/58 (71) 97 04/01/22 13:45 97/60 (72) 98 04/01/22 13:30 96/61 (73) 99 04/01/22 13:15 97/57 (70) 98 04/01/22 13:00 94/54 (67) 100 04/01/22 12:45 99/60 (73) 99 04/01/22 12:30 98/61 (73) Height & Weight Height: 5'9.00" Weight: 195lbs. 7.0oz. 88.762707hi; 26.45 BMI Method:Stated General Appearance: No Apparent Distress, Chronically ill, Thin HEENT: PERRL/EOMI, Moist Mucous Membranes; No Scleral Icterus (L), No Scleral Icterus (R) Neck: Normal Inspection, Supple Respiratory: Lungs Clear, No Accessory Muscle Use, No Respiratory Distress Cardiovascular: Regular Rate, Rhythm, No JVD, No Murmur Capillary Refill: Less Than 3 Seconds Extremity: Normal Capillary Refill, No Calf Tenderness, No Pedal Edema Neurologic/Psychiatric: Alert, Oriented x3, Normal Mood/Affect Skin: Warm/Dry, Pallor Results Lab Laboratory Tests 04/01/22 12:45 Assessment/Plan Assessment/Plan ` BAKARI DONOVAN MD Apr 01, 2022 18:46
[2022-04-01] MEDS: fentaNYL INJ 100 MCG/2 ML AMP IV PRN ×2 (19:43→23:32)
--- NOTE | 2022-04-01 21:21 | Consultation - Surgery ---
History of Present Illness History of Present Illness Patient Consulted On(samina/time) 04/01/22 21:15 Time Seen by Provider: 17:06 History of Present Illness Surgery asked to consult regarding anemia and melena. HPI per ED: Patient is a 71-year-old male with a history of metastatic bladder cancer presents to the emergency department from the [facility] center with a chief complaint of hemoglobin 6.6, profound generalized weakness malaise and fatigue. Patient was seen in the emergency department 2 or 3 days ago. And diagnosed with a urinary tract infection. He has been taking Keflex. Son reports that he has had "dark dark brown" stools for about a week. Patient states that he has had previous colonoscopy within the last few years. He is recently undergone radiation treatment for his cancer. He is pending starting chemotherapy. No fevers or chills. He has had right upper abdominal pain. His appetite has been diminished. Per his son he spends most of his time in bed and he tries to get him up about 4 times a day. No fevers, chest pain or SOB. All other ROS reviewed and negative except as stated. Timing/Duration: Constant, Getting Worse Severity: Severe Associated Systoms: Other (back pain; Rt upper abdomen pain) When I spoke to pt this evening he was lying in his bed, not really talking. His son and other family member gave me all of his history. He has a bladder cancer and about 6-8 weeks ago the hematuria was so bad "they transfused him 6 units". He then got another unit about a week ago. The family stated the highest his hemoglobin has been is appx 9. He has had some black BMs but no blood and denied hematemesis. They also stated that he hasn't had any of the hematuria since they finally cauterized it. He doesn't think he has had an upper or lower scope in over 3 years. Allergies and Home Medications Allergies Coded Allergies: morphine (Unverified Adverse Reaction, Severe, N\\V, 04/01/22) Penicillins (Verified Adverse Reaction, Mild, ORAL THRUSH, 07/17/19) Oral thrush Patient Home Medication List Home Medication List Reviewed: Yes Allopurinol (Allopurinol) 100 Mg Tablet, 100 MG PO DAILY, (Reported) Entered as Reported by: YUNG SAMUEL on 03/11/21 1210 Amlodipine Besylate (Amlodipine Besylate) 5 Mg Tablet, 5 MG PO DAILY, (Reported) Entered as Reported by: YUNG SAMUEL on 03/11/21 121 Ascorbic Acid (Vitamin C) 500 Mg Capsule, 500 MG PO DAILY, (Reported) Entered as Reported by: YUNG SAMUEL on 03/11/21 121 Azithromycin (Zithromax) 250 Mg Tablet, 500 MG PO UD Prescribed by: CHRISTOPHER ORNELAS on 03/13/21 09 Azithromycin (Zithromax) 250 Mg Tablet, 250 MG PO DAILY Prescribed by: CHRISTOPHER ORNELAS on 03/13/21 09 C,E,Zinc,Copper 24/Om3/Lut/Dina (Ocuvite Adult 50 Plus Softgel) 1 Each Capsule, 1 EACH PO DAILY, (Reported) Entered as Reported by: YUNG SAMUEL on 03/11/21 121 Calcium Polycarbophil (Fiber) 625 Mg Tablet, 625 MG PO HS, (Reported) Entered as Reported by: NICOLE ZAIDI on 08/31/17 1326 Cephalexin (Cephalexin) 500 Mg Tablet, 500 MG PO BID Prescribed by: LUZ RIVERA on 03/25/22 2240 Cetirizine HCl (Zyrtec) 10 Mg Tablet, 10 MG PO DAILY, (Reported) Entered as Reported by: YUNG SAMUEL on 03/11/21 121 Chlorthalidone (Chlorthalidone) 25 Mg Tablet, 25 MG PO DAILY, (Reported) Entered as Reported by: YUNG SAMUEL on 03/11/21 121 Cyanocobalamin (Vitamin B-12) (Vitamin B12) 2,500 Mcg Tablet, 2,500 MCG PO DAILY, (Reported) Entered as Reported by: MARCELINO SAMS on 07/17/19 1501 Hydralazine HCl (Hydralazine HCl) 100 Mg Tablet, 100 MG PO BID, (Reported) Entered as Reported by: YUNG SAMUEL on 03/11/21 121 Hydrocodone/Acetaminophen (Hydrocodone-Acetamin 5-325 mg) 1 Each Tablet, 1 TAB PO Q4H Prescribed by: CHRISTOPHER ORNELAS on 03/13/21 09 L. Acidophilus/Dig Enz Cmb 5 (Probiotic-Digestive Enzymes) 1 Each Capsule, 2 CAP PO HS, (Reported) Entered as Reported by: NICOLE ZAIDI on 08/31/17 1326 Losartan Potassium (Losartan Potassium) 100 Mg Tablet, 100 MG PO DAILY, (Reported) Entered as Reported by: MARCELINO SAMS on 07/17/19 1501 Rosuvastatin Calcium (Rosuvastatin Calcium) 10 Mg Tablet, 10 MG PO HS, (Reported) Entered as Reported by: NICOLE ZAIDI on 08/31/17 1326 Terazosin HCl (Terazosin HCl) 2 Mg Capsule, 2 MG PO DAILY, (Reported) Entered as Reported by: MARCELINO SAMS on 07/17/19 1501 Ubidecarenone (Co Q-10) 100 Mg Capsule, 100 MG PO DAILY, (Reported) Entered as Reported by: YUGN SAMUEL on 03/11/21 1214 Discontinued Medications Cephalexin (Cephalexin) 500 Mg Tablet, 500 MG PO BID Prescribed by: LUZ RIVERA on 03/25/22 2200 Past Ccwlbhk-Kgwmhm-Meisog Hx Patient Social History Smoking Status: Current Everyday Smoker Type Used: Cigarettes 2nd Hand Smoke Exposure: Yes Recent Hopitalizations: No Alcohol Use?: No Have you traveled recently?: No Immunizations Up To Date Tetanus Booster (TDap): More than 5yrs PED Vaccines UTD: No Date of Pneumonia Vaccine: Aug 29, 2018 Date of Influenza Vaccine: Aug 07, 2020 Seasonal Allergies Seasonal Allergies: Yes Surgeries History of Surgeries: Yes (FISTULA, turbt, knee scope, shoulder scope) Surgeries: Abdominal, Bladder Surgery, Gallbladder, Orthopedic, Penile Implant, Rectal, Tonsillectomy, Vascular Surgery Respiratory History of Respiratory Disorde: Yes Respiratory Disorders: Sleep Apnea Cardiovascular History of Cardiac Disorders: Yes (ILIAC ARTERY STENTS) Cardiac Disorders: High Cholesterol, Hypertension, Peripheral Vascular Neurological History of Neurological Disord: No Reproductive System Hx Reproductive Disorders: Yes (E.D.) Sexually Transmitted Disease: No HIV/AIDS: No Genitourinary History of Genitourinary Disor: Yes (BLADDER CANCER--TURBT X 2--LAST ONE 07/19/[address] HUMPHRIES. PENILE IMPLANT; ) Genitourinary Disorders: Prostate Problems, Renal Failure Gastrointestinal History of Gastrointestinal Di: Yes (S/P CHOLECYSTECTOMY; ANAL FISTULA/FISSURE REPAIR; RUPTURED APPENDIX REMOVED) Gastrointestinal Disorders: Gastroesophageal Reflux, Gall Bladder Disease Musculoskeletal History of Musculoskeletal Dis: Yes (LEFT SHOULDER SURGERY; LEFT KNEE SURGERY) Musculoskeletal Disorders: Arthritis, Chronic Back Pain Endocrine History of Endocrine Disorders: No HEENT History of HEENT Disorders: No (GLASSES) Loss of Vision: Denies Hearing Impairment: Denies Cancer History of Cancer: Yes Cancer: Bladder, Prostate, Skin Psychosocial History of Psychiatric Problem: No Integumentary History of Skin or Integumenta: No Blood Transfusions History of Blood Disorders: No Adverse Reaction to a Blood Tr: No (HAS HAD BLOOD WITH NO REACTION) Family Medical History Significant Family History: Heart Disease, Diabetes, Lung Disease Family Medial History: Family history: Cardiovascular disease 19 FATHER, Onset:Unknown Family history: Coronary thrombosis 19 FATHER, Onset:Unknown History of - respiratory disease 19 MOTHER, Onset:Unknown G8 SISTER, Onset:Unknown Review of Systems-General Constitutional: malaise, weakness EENTM: blurred vision; No mouth swelling, No epistaxis Respiratory: No cough; dyspnea on exertion; No hemoptysis; short of breath Cardiovascular: No chest pain, No palpitations Gastrointestinal: No abdominal pain, No jaundice; loss of appetite, melena Genitourinary: dysuria, frequency, hematuria Musculoskeletal: joint pain, joint swelling, muscle stiffness Skin: No change in color, No change in hair/nails Psychiatric/Neurological: Denies Anxiety, Denies Depressed Physical Exam-General Problems Physical Exam Vital Signs Vital Signs - First Documented 04/01/22 04/01/22 04/01/22 04/01/22 12:30 12:45 14:37 16:50 Temp 36.2 Pulse 58 Resp 18 B/P (MAP) 98/61 (73) Pulse Ox 99 O2 Delivery Room Air Capillary Refill : Less Than 3 Seconds General Appearance: mild distress, other (chronically ill) Eyes: Bilateral Eye PERRL, Bilateral Eye EOMI HEENT: scleral icterus (R); No scleral icterus (L); other (pt's upper and lower eyelids are edematous) Respiratory: lungs clear, normal breath sounds, no respiratory distress, no accessory muscle use Cardiovascular: regular rate, rhythm, no murmur Gastrointestinal: soft, tenderness (very mild) Extremities: no calf tenderness, pedal edema Neurologic/Psychiatric: alert, depressed affect Skin: warm/dry, pallor Data Review Labs Laboratory Tests 04/01/22 12:45: Prothrombin Time 14.1, INR Comment 1.0, Activated Partial Thromboplast Time 28, Sodium Level 138, Potassium Level 3.5L, Chloride Level 106, Carbon Dioxide Level 21, Anion Gap 11, Blood Urea Nitrogen 39H, Creatinine 1.12, Estimat Glomerular Filtration Rate 71, BUN/Creatinine Ratio 35, Glucose Level 115H, Lactic Acid Level 2.82*H, Calcium Level 7.5L, Corrected Calcium 8.6, Total Bilirubin 0.3, Aspartate Amino Transf (AST/SGOT) 194H, Alanine Aminotransferase (ALT/SGPT) 300H , Alkaline Phosphatase 184H, Total Protein 4.2L, Albumin 2.6L 04/01/22 15:00: Lactic Acid Level 2.14*H 04/01/22 17:58: Lactic Acid Level 2.10*H 04/01/22 20:30: Lactic Acid Level 1.54 Assessment/Plan Assessment/Plan Assessment/Plan Anemia Melena Metastatic Bladder CA I talked with the pt's son; going over his options. He can do nothing, do upper and lower scopes or just do one of the endoscopies. Pt stated he thinks he wants to get at least the upper scope, possibly not the colonoscopy. As long as it is not an emergency he doesn't need to get any of them now. Pt has only lost a small amount of blood, maybe a 1 or 2 drop in what it has been and he doesn't have any bright red bleeding. He wants to wait at least until Tuesday so Dr. Lees can do the EGD; would consent to it early if it was an emergency. I discussed all of this with Dr. Gale. FABIO BILLS DO Apr 01, 2022 21:21
[2022-04-01 23:32] LABS: HEMOGLOBIN 6.8 g/dL (13.3-17.7)
[2022-04-02 00:06] VITALS: BP 124/63
[2022-04-02 00:21] VITALS: BP 117/65
[2022-04-02 03:00] VITALS: BP 133/74
[2022-04-02] MEDS: CEFEPIME 1,000 MG/NS 50 ML IVPB IV SCH ×8 (03:19→21:08)
[2022-04-02] MEDS: fentaNYL INJ 100 MCG/2 ML AMP IV PRN ×5 (03:20→22:59)
[2022-04-02] MEDS: NS IV 1000 ML 1,000 ML IV SCH ×4 (05:31→22:59)
[2022-04-02 06:14] LABS: ALBUMIN 2.3 GM/DL (3.2-4.5); POTASSIUM 4.1 MMOL/L (3.6-5.0)
[2022-04-02 06:15] LABS: CALCIUM 7.3 MG/DL (8.5-10.1)
[2022-04-02 06:16] LABS: TOTAL PROTEIN 3.6 GM/DL (6.4-8.2)
[2022-04-02 06:18] LABS: BILIRUBIN,TOTAL 0.4 MG/DL (0.1-1.0)
[2022-04-02 06:19] LABS: PHOSPHORUS 3.4 MG/DL (2.3-4.7)
[2022-04-02 06:20] LABS: CREATININE SERUM 0.9 MG/DL (0.60-1.30)
[2022-04-02 06:23] LABS: MAGNESIUM 1.9 MG/DL (1.6-2.4)
--- NOTE | 2022-04-02 08:13 | Progress Note - Hospitalist ---
Subjective HPI/CC On Admission Date Seen by Provider: Apr 02, 2022 Time Seen by Provider: 08:10 Patient is a 71-year-old male with past medical history of hypertension, metastatic bladder cancer, brain mets, anemia who presented to the ER from oncology clinic due to hypotension and anemia. He had labs drawn today which revealed a hemoglobin of 6.6 and his blood pressure was 72/40 in their clinic. With fluids his blood pressure improved to 90s over 60s but he still feels very weak and is slightly tachycardic. His only complaint is that he would like his socks off and his door shut so it's not so bright. Subjective/Events-last exam Pt reports feeling ok today but cold. Just asks to be covered up. Focused Exam Lactate Level 04/01/22 15:00: Lactic Acid Level 2.14*H 04/01/22 17:58: Lactic Acid Level 2.10*H 04/01/22 20:30: Lactic Acid Level 1.54 Objective Exam Vital Signs Vital Signs Date Time Temp Pulse Resp B/P (MAP) Pulse Ox O2 Delivery O2 Flow Rate FiO2 04/02/22 14:00 55 11 130/61 97 Room Air 04/02/22 12:00 37.0 Capillary Refill : Less Than 3 Seconds General Appearance: No Apparent Distress, Chronically ill Respiratory: Lungs Clear, No Respiratory Distress Cardiovascular: Regular Rate, Rhythm, No Murmur Neurologic/Psychiatric: Alert, Oriented x3 Results/Procedures Lab Laboratory Tests 04/01/22 23:15 04/02/22 05:29 Patient resulted labs reviewed. Assessment/Plan Assessment and Plan Assess & Plan/Chief Complaint GI Bleed Hemorrhagic shock Thrombocytopenia Hgb up to 8.1 after 2 units pRBCs IV Fluids PPI Surgery consult, discussed with Dr Leroy Planning for scope on Tuesday Called Dr Barksdale to discuss thrombocytopenia, recommends repeat labs with smear Metastatic bladder cancer to brain Follows with Dr Barksdale, discussed with him today Consult him completed radiation, has not completed any chemo for this reportedly had chemo for lung cancer at some point per patient? Poor prognosis UTI with sepsis lactic up but likely confounded by anemia Continue Cefepime per sensitivities from 03/25 DVT ppx: SCDs only for anemia Diagnosis/Problems Diagnosis/Problems (1) Upper GI bleed (2) Hemorrhagic shock (3) Metastatic urothelial carcinoma Status: Acute (4) Urinary tract infection Status: Acute Qualifiers: Urinary tract infection type: site unspecified Hematuria presence: without hematuria Qualified Codes: N39.0 - Urinary tract infection, site not specified (5) Thrombocytopenia Status: Acute (6) Generalized weakness Status: Acute MAGI DEAN MD Apr 02, 2022 08:13
[2022-04-02 08:49] LABS: ABSOLUTE RETIC # 107 10e9/uL (24-90); BASOPHILS % (AUTO) 0 % (0-10); EOSINOPHILS % (AUTO) 0 % (0-10); HEMATOCRIT 25 % (40-54); LYMPHOCYTES # (AUTO) 0.2 10^3/uL (1.0-4.0); LYMPHOCYTES % (AUTO) 5 % (12-44); MEAN CORPUSCULAR HEMOGLOBIN 30 pg (25-34); MEAN CORPUSCULAR HGB CONC 33 g/dL (32-36); NEUTROPHILS # (AUTO) 4.1 10^3/uL (1.8-7.8); NEUTROPHILS % (AUTO) 83 % (42-75); RETICULOCYTE % 3.96 % (0.50-2.40)
[2022-04-02 08:56] LABS: HEMOGLOBIN 8.1 g/dL (13.3-17.7); MEAN CORPUSCULAR VOLUME 91 fL (80-99); MEAN PLATELET VOLUME 9.8 fL (9.0-12.2); MONOCYTES % (AUTO) 8 % (0-12)
[2022-04-02 08:57] LABS: MONOCYTES # (AUTO) 0.4 10^3/uL (0.0-1.0)
[2022-04-02 09:32] LABS: ANISOCYTOSIS SLIGHT; BAND NEUTROPHILS 7 %; BASOPHILS % (MANUAL) 0 %; ELLIPT/OVALOCYTES SLIGHT; EOSINOPHILS % (MANUAL) 0 %; LYMPHOCYTES % (MANUAL) 5 %; MONOCYTES % (MANUAL) 6 %; MYELOCYTES % 3 %; NEUTROPHILS % (MANUAL) 79 %; POIKILOCYTOSIS SLIGHT; POLYCHROMASIA SLIGHT
[2022-04-02 09:33] LABS: NUCLEATED RED BLOOD CELLS 3
[2022-04-02 09:41] LABS: PLATELET COUNT 17 10^3/uL (130-400)
[2022-04-02] MEDS: PANTOPRAZOLE 40 MG (PROTONIX) VIAL IV SCH ×2 (09:45→21:08)
--- NOTE | 2022-04-02 09:53 | Occupational Therapy Eval ---
OT Evaluation-General/PLF Medical Diagnosis Admission Date Apr 01, 2022 at 14:08 Medical Diagnosis: Sepsis Onset Date: Apr 01, 2022 Therapy Diagnosis Therapy Diagnosis: impaired adls, endurance, balance Height/Weight Height (Feet): 5 Height (Inches): 9.00 Weight (Pounds): 195 Weight (Ounces): 7.0 Precautions Precautions/Isolations: Fall Prevention, Standard Precautions Referral Physician: Baljinder Referral Reason: Evaluation/Treatment Medical History Pertinent Medical History: HTN Additional Medical History metastatic bladder cancer, brain mets, anemia Current History pt presents to ER with hypotension and anemia. Found to have BP of 72/40 and Hemoglobin of 6.6. Blood given. Current Hemoglobin of 8.1. Per chart, pt spends most of his time in the bed and his son tries to get him up at least 4x/day. Per patient, pt was living with a "friend" and his son and daughter take turns driving down from [place] to assist. Pt states that he doesn't know if he will still live with his "friend" post d/c. Pt reports that he is dependent for all dressing, bathing, toileting, and requires assist with transferring in/out of his wheelchair at baseline. He verbalizes that he can normally get himself to the side of the bed but is very unsteady and often has to rest his head on the wall in order to maintain his balance. Reviewed History: Yes Social History Current Living Status: Friend ADL-Prior Level of Function SCALE: Activities may be completed with or without assistive devices. 7-Pgkzcgrrqr-sgdfelr completes the activity by him/herself with no assistance from a helper. 5-Set-up or Clean-up Assistance-helper sets up or cleans up; patient completes activity. [place] assists only prior to or following the activity. 4-Supervision or Touching Assistance-helper provides verbal cues and/or touching/steadying and/or contact guard assistance as patient completes activity. Assistance may be provided throughout the activity or intermittently. 3-Partial/Moderate Assistance-helper does LESS THAN HALF the effort. [place] lifts, holds or supports trunk or limbs, but provides less than half the effort. 2-Substantial/Maximal Assistance-helper does MORE THAN HALF the effort. [place] lifts or holds trunk or limbs and provides more than half the effort. 1-Esbkoqhwt-ckmqkf does ALL the effort. Patient does none of the effort to complete the activity. Or, the assistance of 2 or more helpers is required for the patient to complete the activity. If activity was not attempted, code reason: 7-Patient Refused. 9-Not Applicable-not attempted and the patient did not perform the activity before the current illness, exacerbation or injury. 10-Not Attempted due to Environmental Limitations-(lack of equipment, weather restraints, etc.). 88-Not Attempted due to Medical Conditions or Safety Concerns. Self Care: Dependent Functional Cognition: Unknown DME/Equipment: Bath Chair, Shower Drive Self: No OT Current Status Subjective Pt states he has 8/10 chronic back pain. RN in room and reports she will retrieve pain meds. Appearance Pt left supine in bed, all needs within reach. Mental Status/Objective Patient Orientation: Person, Confused, Place, Situation Attachments: IV, Telemetry Current Hand Dominance: Right Upper Extremity ROM RUE WNL LUE: ~150 degrees AROM, full PROM Elbow-distally: WFL Upper Extremity Strength Not formally tested secondary to c/o back pain. Anticipate at least 3/5 grossly Fair radio artist strength ADL-Treatment Eating (QC): 4 (per clinical judgment) On/Off Footwear (QC): 1 Pt supine in bed at OT arrival. He reports that he is dependent for all dressing, bathing, toileting, and requires assist with transferring in/out of his wheelchair at baseline. He verbalizes that he can normally get himself to the side of the bed but is very unsteady and often has to rest his head on the wall in order to maintain his balance. Max a for initial rolling R/L, once patient can reach across midline for bed rail, he is able to pull self fully onto his side without assistance. Assist x2 to supine scoot towards HOB. Pt able to perform all grooming tasks at bed level with set up. Pt is currently at baseline for adls, no skilled OT services warranted at this time Education OT Patient Education: Correct positioning, Purpose of tx/functional activities, Transfer techniques Teaching Recipient: Patient Teaching Methods: Discussion Response to Teaching: Verbalize Understanding, Return Demonstration OT Alf Goals Chair Springer Goals 1=Demonstrate adherence to instructed precautions during ADL tasks. 2=Patient will verbalize/demonstrate understanding of assistive devices/modifications for ADL. 3=Patient will improve strength/tolerance for activity to enable patient to perform ADL's. OT Education/Plan Problem List/Assessment Assessment: No Skilled OT Needs ID'd Discharge Recommendations Plan/Recommendations: Discontinue OT Treatment Plan/Plan of Care Treatment,Training & Education: Yes Patient would benefit from OT for education, treatment and training to promote independence in ADL's, mobility, safety and/or upper extremity function for ADL's. Plan of Care: Functional Mobility Treatment Duration: Apr 02, 2022 Frequency: 1 time per week Estimated Hrs Per Day: .25 hour per day Agreement: Yes Rehab Potential: Poor Time/GCodes Start Time: 09:34 Stop Time: 09:46 Total Time Billed (hr/min): 12 Billed Treatment Time 1 visit Estela Appiah OT Apr 02, 2022 09:53
[2022-04-02 13:17] LABS: FIBRIN DEGRADATION PRODUCTS 3.56 UG/ML (0.00-0.49); INR 1.1 (0.8-1.4); PROTHROMBIN TIME PATIENT 14.2 SEC (12.2-14.7)
--- NOTE | 2022-04-02 15:03 | Physical Therapy Progress Note ---
Therapy Progress Note Attempted to see patient x 2 for PT initial evaluation. First attempt before lunch, patient was asleep and unarousable. Second attempt at 14:45, patient refused evaluation as he states, "I'm just done, I'm tired, I hurt and I just want to stay warm." Will attempt evaluation again tomorrow as patient is able to tolerate. DIAMOND JACINTO PT Apr 02, 2022 15:02
--- NOTE | 2022-04-02 16:16 | Tele-ICU Progress Note ---
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 Discussed with RN to reach out if any questions or concerns A total of 22 minutes of critical care time was devoted to this patient today, required to treat and/or prevent further deterioration of critical care condition ( as above Sepsis Event Evaluation Height, Weight, BMI Height: 5'9.00" Weight: 195lbs. 7.0oz. 88.656993lh; 26.45 BMI Method:Stated Focused Exam Lactate Level 04/01/22 15:00: Lactic Acid Level 2.14*H 04/01/22 17:58: Lactic Acid Level 2.10*H 04/01/22 20:30: Lactic Acid Level 1.54 Exam Exam Patient acknowledged, consented, and participated in this virtual visit which was conducted using real time audio/video Vital Signs Date Time Temp Pulse Resp B/P (MAP) Pulse Ox O2 Delivery O2 Flow Rate FiO2 04/02/22 15:00 54 20 109/53 98 Room Air 04/02/22 14:00 55 11 130/61 97 Room Air 04/02/22 13:00 53 16 116/59 98 Room Air 04/02/22 12:33 61 04/02/22 12:00 51 17 110/52 97 Room Air 04/02/22 12:00 37.0 04/02/22 11:00 49 12 122/56 98 Room Air 04/02/22 10:00 59 13 126/67 97 Room Air 04/02/22 09:00 48 13 121/64 97 Room Air 04/02/22 08:00 36.7 04/02/22 08:00 44 12 130/59 97 Room Air 04/02/22 07:00 53 18 124/59 98 Room Air 04/02/22 07:00 67 04/02/22 06:00 47 18 109/50 98 Room Air 04/02/22 05:00 42 11 109/49 99 Room Air 04/02/22 04:00 98 Room Air 04/02/22 04:00 64 16 133/65 97 Room Air 04/02/22 03:00 36.8 47 16 133/74 98 Room Air 04/02/22 03:00 48 15 133/74 98 Room Air 04/02/22 02:00 45 15 128/65 94 Room Air 04/02/22 01:00 55 14 119/67 97 Room Air 04/02/22 01:00 55 04/02/22 00:21 36.8 46 18 117/65 99 Room Air 04/02/22 00:06 36.9 48 16 124/63 99 Room Air 04/01/22 23:59 99 Room Air 04/01/22 23:00 53 13 117/65 99 Room Air 04/01/22 22:00 51 14 117/65 98 Room Air 04/01/22 21:00 51 13 117/59 98 Room Air 04/01/22 20:00 54 12 104/63 97 Room Air 04/01/22 20:00 98 Room Air 04/01/22 19:41 37.3 56 18 117/60 98 Room Air 04/01/22 19:00 64 14 106/63 98 Room Air 04/01/22 19:00 64 04/01/22 18:00 61 14 100/52 98 Room Air 04/01/22 17:09 99 Room Air 04/01/22 17:05 37.4 66 15 99/60 99 Room Air 04/01/22 17:00 65 12 103/58 99 Room Air 04/01/22 16:50 36.6 62 12 107/56 99 Room Air I & O 04/02/22 07:00 Intake Total 1350 ml Output Total 950 ml Balance 400 ml Height & Weight Height: 5'9.00" Weight: 195lbs. 7.0oz. 88.088753xp; 26.45 BMI Method:Stated General Appearance: No Apparent Distress, Chronically ill HEENT: PERRL/EOMI, Moist Mucous Membranes; No Scleral Icterus (L), No Scleral Icterus (R) Neck: Normal Inspection, Supple Respiratory: Lungs Clear, No Respiratory Distress Cardiovascular: Regular Rate, Rhythm, No Murmur Capillary Refill: Less Than 3 Seconds Gastrointestinal: soft, tenderness (very mild) Extremity: Normal Capillary Refill, No Calf Tenderness, No Pedal Edema Neurologic/Psychiatric: Alert, Oriented x3 Skin: Warm/Dry, Pallor Results Lab Laboratory Tests 04/01/22 12:45 04/01/22 23:15 04/02/22 05:29 Assessment/Plan Assessment/Plan ` BAKARI DONOVAN MD Apr 02, 2022 16:16
[2022-04-02 19:17] LABS: EOSINOPHILS % (AUTO) 0 % (0-10); HEMOGLOBIN 8.3 g/dL (13.3-17.7)
[2022-04-02 19:19] LABS: BASOPHILS % (AUTO) 0 % (0-10); HEMATOCRIT 25 % (40-54); LYMPHOCYTES # (AUTO) 0.2 10^3/uL (1.0-4.0); LYMPHOCYTES % (AUTO) 6 % (12-44); MEAN CORPUSCULAR HEMOGLOBIN 30 pg (25-34); MEAN CORPUSCULAR HGB CONC 33 g/dL (32-36); MEAN CORPUSCULAR VOLUME 91 fL (80-99); MONOCYTES # (AUTO) 0.2 10^3/uL (0.0-1.0); MONOCYTES % (AUTO) 6 % (0-12); NEUTROPHILS # (AUTO) 3.1 10^3/uL (1.8-7.8); NEUTROPHILS % (AUTO) 84 % (42-75); WHITE BLOOD COUNT 3.8 10^3/uL (4.3-11.0)
[2022-04-02 19:36] LABS: PLATELET COUNT 14 10^3/uL (130-400)
[2022-04-02 20:45] LABS: ANISOCYTOSIS SLIGHT; ATYPICAL LYMPHOCYTES 4 %; BAND NEUTROPHILS 1 %; LYMPHOCYTES % (MANUAL) 8 %; MONOCYTES % (MANUAL) 4 %; NEUTROPHILS % (MANUAL) 83 %; NUCLEATED RED BLOOD CELLS 6; POIKILOCYTOSIS SLIGHT
[2022-04-03] MEDS: CEFEPIME 1,000 MG/NS 50 ML IVPB IV SCH ×4 (03:21→08:04)
[2022-04-03] MEDS: fentaNYL INJ 100 MCG/2 ML AMP IV PRN ×6 (03:27→20:53)
[2022-04-03 05:32] LABS: EOSINOPHILS % (AUTO) 0 % (0-10); HEMOGLOBIN 7.7 g/dL (13.3-17.7); MEAN CORPUSCULAR HEMOGLOBIN 30 pg (25-34)
[2022-04-03 05:34] LABS: BASOPHILS % (AUTO) 0 % (0-10); HEMATOCRIT 23 % (40-54); LYMPHOCYTES # (AUTO) 0.3 10^3/uL (1.0-4.0); LYMPHOCYTES % (AUTO) 8 % (12-44); MEAN CORPUSCULAR HGB CONC 33 g/dL (32-36); MEAN CORPUSCULAR VOLUME 91 fL (80-99); MONOCYTES # (AUTO) 0.3 10^3/uL (0.0-1.0); MONOCYTES % (AUTO) 7 % (0-12); NEUTROPHILS # (AUTO) 3.1 10^3/uL (1.8-7.8); NEUTROPHILS % (AUTO) 81 % (42-75); WHITE BLOOD COUNT 3.9 10^3/uL (4.3-11.0)
[2022-04-03 05:44] LABS: ALBUMIN 2.1 GM/DL (3.2-4.5); POTASSIUM 3.3 MMOL/L (3.6-5.0)
[2022-04-03 05:45] LABS: CALCIUM 6.9 MG/DL (8.5-10.1)
[2022-04-03 05:46] LABS: TOTAL PROTEIN 3.5 GM/DL (6.4-8.2)
[2022-04-03 05:48] LABS: BILIRUBIN,TOTAL 0.4 MG/DL (0.1-1.0)
[2022-04-03 05:49] LABS: PHOSPHORUS 2.8 MG/DL (2.3-4.7)
[2022-04-03 05:50] LABS: CREATININE SERUM 0.78 MG/DL (0.60-1.30)
[2022-04-03 05:53] LABS: MAGNESIUM 1.7 MG/DL (1.6-2.4)
[2022-04-03 05:57] LABS: PLATELET COUNT 14 10^3/uL (130-400)
[2022-04-03 06:26] LABS: FIBRIN DEGRADATION PRODUCTS 6.92 UG/ML (0.00-0.49); INR 1.1 (0.8-1.4); PROTHROMBIN TIME PATIENT 14.6 SEC (12.2-14.7)
[2022-04-03] MEDS: NS IV 1000 ML 1,000 ML IV SCH (08:04)
[2022-04-03] MEDS: PANTOPRAZOLE 40 MG (PROTONIX) VIAL IV SCH ×2 (08:04→20:53)
--- NOTE | 2022-04-03 09:27 | Progress Note - Hospitalist ---
Subjective HPI/CC On Admission Date Seen by Provider: Apr 03, 2022 Patient is a 71-year-old male with past medical history of hypertension, metastatic bladder cancer, brain mets, anemia who presented to the ER from oncology clinic due to hypotension and anemia. He had labs drawn today which revealed a hemoglobin of 6.6 and his blood pressure was 72/40 in their clinic. With fluids his blood pressure improved to 90s over 60s but he still feels very weak and is slightly tachycardic. His only complaint is that he would like his socks off and his door shut so it's not so bright. Subjective/Events-last exam Pt complains of chest pain. Reproducible to touch. No other complaints. Discussed plan to work up chest pain but that given his hematologic problems this could be very hard to treat. Focused Exam Lactate Level 04/01/22 15:00: Lactic Acid Level 2.14*H 04/01/22 17:58: Lactic Acid Level 2.10*H 04/01/22 20:30: Lactic Acid Level 1.54 Objective Exam Vital Signs Vital Signs Date Time Temp Pulse Resp B/P (MAP) Pulse Ox O2 Delivery O2 Flow Rate FiO2 04/03/22 09:00 77 16 117/68 96 Room Air 04/03/22 08:25 37.0 Capillary Refill : Less Than 3 Seconds General Appearance: No Apparent Distress, Chronically ill Respiratory: Lungs Clear, No Respiratory Distress Cardiovascular: Regular Rate, Rhythm, No Murmur Neurologic/Psychiatric: Alert, Oriented x3 Results/Procedures Lab Laboratory Tests 04/02/22 19:05 04/03/22 05:20 Patient resulted labs reviewed. 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 Poor prognosis UTI with sepsis lactic up but likely confounded by anemia Continue Cefepime per sensitivities from 03/25 DVT ppx: SCDs only for anemia Diagnosis/Problems Diagnosis/Problems (1) Upper GI bleed (2) Hemorrhagic shock (3) Metastatic urothelial carcinoma Status: Acute (4) Urinary tract infection Status: Acute Qualifiers: Urinary tract infection type: site unspecified Hematuria presence: without hematuria Qualified Codes: N39.0 - Urinary tract infection, site not specified (5) Thrombocytopenia Status: Acute (6) Generalized weakness Status: Acute MAGI DEAN MD Apr 03, 2022 09:27
--- NOTE | 2022-04-03 09:51 | Tele-ICU Progress Note ---
Subjective Date Seen by a Provider: Apr 03, 2022 Time Seen by a Provider: 07:45 Subjective/Events-last exam This virtual visit was conducted using real time audio/video. Thank you for asking us to see this patient for anemia, recent UTI and hypotension. Also bladder CA w brain mets Recent events: chest pains overnight. PE: VSS. O2 sat 97% on RA HEENT: No obvious masses, adenopathy or JVD. Chest: clear to auscultation. CV: RRR S1 S2 No murmur or added sounds. Abd: Non-tender. Bowel sounds Y. : Unremarkable. Condom cath. MACHINE CAPTAIN/psychiatric: Grossly intact. No obvious focal findings. Extremities: No edema. Capillary refill < 3 seconds. Skin: unremarkable. Results: Elevated BUN 28. Decreased Hb 7.7, WCC 3.9, Plts. 17K, alb 2.1, K 3.3. CXR: JOSE DE JESUS opacity, hyperinflated. Available chart/ vitals / labs / images reviewed. Video assessment done using teleICU camera, rest of exam as per RN. A/P: Critical Care: critically ill patient. Cont. abx, replaceK, consider CTAC. Discussed with RN Francisca. Asked RN to reach out to eICU if any questions or concerns later. Time spent with patient/coordination of care with other health professionals (mins):20 Sepsis Event Evaluation Height, Weight, BMI Height: 5'9.00" Weight: 195lbs. 7.0oz. 88.166870mj; 26.48 BMI Method:Stated Focused Exam Lactate Level 04/01/22 15:00: Lactic Acid Level 2.14*H 04/01/22 17:58: Lactic Acid Level 2.10*H 04/01/22 20:30: Lactic Acid Level 1.54 Exam Exam Patient acknowledged, consented, and participated in this virtual visit which was conducted using real time audio/video Vital Signs Date Time Temp Pulse Resp B/P (MAP) Pulse Ox O2 Delivery O2 Flow Rate FiO2 04/03/22 09:00 77 16 117/68 96 Room Air 04/03/22 08:25 37.0 04/03/22 08:00 77 21 127/67 97 Room Air 04/03/22 07:00 81 04/03/22 07:00 76 18 124/67 96 Room Air 04/03/22 06:00 77 17 132/59 96 Room Air 04/03/22 05:00 60 16 116/66 97 Room Air 04/03/22 04:00 59 18 116/72 94 Room Air 04/03/22 04:00 98 Room Air 04/03/22 03:27 37.2 04/03/22 03:00 63 17 117/60 96 Room Air 04/03/22 02:00 58 16 114/62 96 Room Air 04/03/22 01:00 53 18 110/60 98 Room Air 04/03/22 01:00 60 04/03/22 00:00 60 18 113/68 96 Room Air 04/03/22 00:00 37.2 04/03/22 00:00 98 Room Air 04/02/22 23:00 78 24 114/65 98 Room Air 04/02/22 22:00 68 25 118/61 97 Room Air 04/02/22 21:00 60 19 113/53 96 Room Air 04/02/22 20:00 63 18 107/57 96 Room Air 04/02/22 20:00 98 Room Air 04/02/22 19:56 37.5 04/02/22 19:00 62 04/02/22 19:00 58 23 121/60 98 Room Air 04/02/22 18:00 56 23 141/60 98 Room Air 04/02/22 17:00 52 17 117/56 98 Room Air 04/02/22 16:00 52 15 116/55 97 Room Air 04/02/22 16:00 98 Room Air 04/02/22 15:00 54 20 109/53 98 Room Air 04/02/22 14:00 55 11 130/61 97 Room Air 04/02/22 13:00 53 16 116/59 98 Room Air 04/02/22 12:33 61 04/02/22 12:00 98 Room Air 04/02/22 12:00 51 17 110/52 97 Room Air 04/02/22 12:00 37.0 04/02/22 11:00 49 12 122/56 98 Room Air 04/02/22 10:00 59 13 126/67 97 Room Air I & O 04/03/22 07:00 Intake Total 1590 ml Output Total 2540 ml Balance -950 ml Height & Weight Height: 5'9.00" Weight: 195lbs. 7.0oz. 88.553926rp; 26.48 BMI Method:Stated General Appearance: No Apparent Distress, Chronically ill HEENT: PERRL/EOMI, Moist Mucous Membranes Neck: Normal Inspection, Supple Respiratory: Lungs Clear, No Respiratory Distress Cardiovascular: Regular Rate, Rhythm, No Murmur Capillary Refill: Less Than 3 Seconds Gastrointestinal: soft, tenderness (very mild) Extremity: Normal Capillary Refill, No Calf Tenderness, No Pedal Edema Neurologic/Psychiatric: Alert, Oriented x3 Skin: Warm/Dry, Pallor Results Lab Laboratory Tests 04/01/22 12:45 04/01/22 23:15 04/02/22 05:29 04/02/22 19:05 04/03/22 05:20 Assessment/Plan Assessment/Plan See free text. Critical Care: Critically Ill Patient LUCIE ROSADO MD Apr 03, 2022 09:51
[2022-04-03] MEDS ORDERED: IOHEXOL 350 MG/ML 100 ML (OMNIPAQUE 350) VIAL IV ONE (10:15)
[2022-04-03] MEDS ORDERED: NS 100 ML (IVPB) BAG IV ONE (10:15)
[2022-04-03] MEDS ORDERED: SUCRALFATE 1 GM (CARAFATE) TAB PO SCH (11:00)
--- NOTE | 2022-04-03 11:15 | Physical Therapy Progress Note ---
Therapy Progress Note Attempted to see patient for PT initial evaluation. Patient refused evaluation as he states, "No, I just hurt too bad today." Will attempt evaluation again tomorrow as patient is able to tolerate. DIAMOND JACINTO PT Apr 03, 2022 11:15
[2022-04-03] MEDS ORDERED: SALIVA STIMULANT MOUTH SPRAY (BIOTENE) 1.5 OZ MM PRN (11:45)
[2022-04-03] MEDS ORDERED: GLYCOPYRROLATE 0.2 MG/ML (ROBINUL) 2 ML VIAL IV PRN (11:45)
[2022-04-03] MEDS ORDERED: ONDANSETRON 4 MG/2 ML (SDV) Z0FRAN IVP PRN (11:45)
[2022-04-03] MEDS ORDERED: LORazepam ORAL CONCENTRATE 2 MG/ML 30 ML (ATIVAN) PO PRN (11:45)
[2022-04-03] MEDS ORDERED: RT-ALBUTEROL/IPRATROPIUM 3 ML (DUONEB) VIAL INH PRN (11:45)
[2022-04-03] MEDS ORDERED: ATROPINE 1% OPHTHALMIC SOLN 2 ML SL PRN (11:45)
[2022-04-03] MEDS ORDERED: PROMETHAZINE INJ 25 MG/ML (PHENERGAN) AMP IVP PRN (11:45)
[2022-04-03] MEDS ORDERED: BISACODYL 10 MG SUPP (DULCOLAX) PR PRN (11:45)
[2022-04-03] MEDS ORDERED: SCOPOLAMINE 1.5 MG (TRANSDERM-SCOP) PATCH TOP SCH (11:45)
[2022-04-03] MEDS ORDERED: ARTIFICAL TEARS 0.4 ML UNIT DOSE (REFRESH PLUS) OU PRN (11:45)
[2022-04-03] MEDS ORDERED: ACETAMINOPHEN 650 MG SUPP (TYLENOL) PR PRN (11:45)
--- NOTE | 2022-04-03 18:26 | CONSULTATION REPORT ---
DATE OF SERVICE: 04/03/2022 The patient is admitted to ICU bed 8. REQUESTING PHYSICIAN: Rufina Gale MD. IMPRESSION: 1. A 71-year-old male admitted to the hospital with symptomatic anemia. 2. History of metastatic bladder cancer to the lungs, liver and brain. Previous chemotherapy with carboplatin and gemcitabine regimen x6 cycles followed by pembrolizumab maintenance for three cycles with the last treatment in mid-December 2021. 3. Hematuria with symptomatic anemia and admission to [facility], requiring up to 8 units of PRBC transfusion. The patient was diagnosed with a right occipital metastatic lesion causing edema in early January 2022. The patient was on dexamethasone and completed stereotactic radiation therapy on 03/22/2022. 4. Worsening thrombocytopenia since early February 2022, of undetermined etiology. 5. Significant deconditioning. RECOMMENDATIONS: 1. Agree with PRBC transfusion because of symptomatic anemia. Maintain hemoglobin in the mid 7 grams per deciliter range because of his age, functional status and pulmonary status. 2. Thrombocytopenia of undetermined etiology, which is worsening since past 5 weeks. Agree with a DIC panel and monitor this serially. We will review peripheral smear. 3. Surgical consult for GI evaluation to rule out GI source of blood loss. 4. No clinically obvious hematuria to account for the drop in hemoglobin. 5. Obtain reticulocyte count and serum iron studies. 6. Review of the peripheral smear also showed moderate rouleaux formation. Obtain serum protein electrophoresis, immunofixation and serum light chain ratio to rule out monoclonal paraprotein. 7. Overall, prognosis is guarded. 8. I will follow the patient with you. BRIEF HISTORY: The patient is a 71-year-old male, who was diagnosed with high-grade papillary urothelial carcinoma and underwent TURBT at [facility] in 12/2020. He completed BCG treatments, but followup cystoscopy at months showed evidence of recurrence. In 04/2021, he was noted to have a left upper lobe lung mass and underwent bronchoscopy with biopsy. The pathology report was compatible with metastatic urothelial carcinoma. PD-L1 testing showed CPS of 99. [id number] with MSI not detected, but alteration of a CDKN2a biomarker. Staging PET-CT scan showed left upper lobe mass with mediastinal, hilar and retroperitoneal/mesenteric lymphadenopathy. MRI brain on 05/22/2021 was negative. The patient underwent stereotactic radiation to the left lung lesion at [facility] followed by chemotherapy with carboplatin and gemcitabine regimen x6 cycles completing it by mid-October 2021. He did have significant cytopenias during the chemotherapy. He was started on maintenance therapy with Keytruda and completed three cycles from early December till midDecember 2021. By late December 2021, he was noted to have multiple liver metastases. Following this, he was admitted for symptomatic anemia and hematuria to [facility], requiring up to 8 units of PRBC transfusion. He was also diagnosed with right occipital brain metastasis with edema in January and started on steroids. He completed stereotactic radiation to the brain lesion by 03/22/2022 in [place]. His performance status continued to decline and he was noted to have symptomatic anemia again without obvious sources of bleeding as well as worsening thrombocytopenia. He was evaluated at the emergency room and found to have significant anemia with hypotension and admitted to the hospital. Medical oncology/hematology consult was requested for concurrent care. PAST MEDICAL HISTORY: Significant for a work related injury in 1987 when he had a fall from 30 foot high building. Peripheral arterial disease requiring an iliac stent placement. He has renal artery stenosis. Atherosclerotic pulmonary disease, COPD with more than [id number] history of tobacco use. Low-grade bladder cancer diagnosed in 2013 and being followed by urology. He had a high-grade invasive bladder cancer diagnosed in early 2020 with metastasis diagnosed by mid. Prostate cancer diagnosed in 2015, treated with radiation therapy. 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 PAST SURGICAL HISTORY: Include shoulder surgery and knee surgery in the past. Cardiac catheterization in 2013, TURBT in 2013, and iliac artery surgery in 2014. FAMILY HISTORY: Unremarkable with no major malignancies or medical problems that the patient knows of. SOCIAL HISTORY: The patient is and lives in [place], [place] with his significant other. He has a son and a daughter, who live close by. 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 He has more than 70 to [id number] history of tobacco use and was smoking prior to admission. ALLERGIES: Allergy to PENICILLIN, which caused a rash in the distant past. REVIEW OF SYSTEMS: Significant for fatigue. Activity level has been low. He has dyspnea on exertion. Complained of right upper quadrant discomfort intermittently. Appetite has been low and he has lost some weight. Complained of dark stools last week at home. No obvious hematuria. No other obvious bleeding. PHYSICAL EXAMINATION: GENERAL: Showed an elderly male, weak appearing, somnolent, but easily arousable, well developed and nourished, otherwise in no acute distress. HEENT: Normocephalic, extraocular muscles intact, conjunctivae pale, and oral mucosa slightly dry. NECK: Supple, with no JVD. No cervical, supraclavicular or axillary lymphadenopathy palpable. CHEST: Symmetrical with an Infusaport. LUNGS: With diminished breath sounds bilaterally without any wheezes or rales. CARDIOVASCULAR: Regular in rate and rhythm. No murmurs or gallops heard. ABDOMEN: Soft with mild tenderness in the right upper quadrant without guarding or rebound. Liver edge was palpable at the costal margin. No splenomegaly. No other masses palpable in the abdomen. EXTREMITIES: Showed no edema. No petechiae noted. NEUROLOGIC: Showed no focal motor deficits. Overall, motor strength was 4/5 bilaterally. LABORATORY DATA: CBC done on 04/01/2022 showed a hemoglobin level of 6.8 and hematocrit of 21. The patient received 2 units of PRBC transfusion and on 04/02/2022, CBC showed white count of 5.0, hemoglobin 8.1 with a platelet count 17,000 and neutrophil count 4.1. Today morning, the CBC showed WBC 3.9, hemoglobin 7.7, and platelet count 14,000. Chemistry panel today showed potassium level of 3.3. BUN was 28 and creatinine 0.78 with GFR of 97 mL per minute. AST was elevated at 206, ALT 286 and alkaline phosphatase at 196. Albumin was 2.1. DIC panel done yesterday showed a protime of 14.2 with INR 1.1, fibrinogen 241 and D-dimer of 3.56. Repeat done today showed PT 14.6, fibrinogen 306, and D-dimer 6.92. Chest x-ray done at the emergency room showed a 3 cm left upper lung pulmonary nodule. No other acute findings noted. I reviewed the peripheral smear done on 04/02/2022, which showed evidence of hypochromia in some cells. There was a dimorphic red blood cell population in the peripheral smear. Platelets were significantly reduced and no platelet clumps were noted. White blood cells appeared unremarkable with no immature forms identified. Thank you for allowing me to participate in this patient's care. I will follow the patient with you and make appropriate recommendations. Job ID: [id number] DocumentID: [id number] Dictated Date: 04/03/2022 10:34:47 Nocturnist Physician Date: 04/03/2022 18:25:49 Dictated By: JESSICA HOLM MD MTDD
[2022-04-04] MEDS: fentaNYL INJ 100 MCG/2 ML AMP IV PRN ×2 (07:44→12:21)
[2022-04-04] MEDS: PANTOPRAZOLE 40 MG (PROTONIX) VIAL IV SCH ×2 (07:44→20:07)
[2022-04-04] MEDS: LORazepam INJ 2 MG/ML (ATIVAN) VIAL IVP PRN ×5 (07:45→22:19)
[2022-04-04] MEDS ORDERED: MINERAL OIL ENEMA 133 ML BTL PR ONE (11:15)
--- NOTE | 2022-04-04 12:29 | Progress Note - Hospitalist ---
Subjective HPI/CC On Admission Date Seen by Provider: Apr 04, 2022 Patient is a 71-year-old male with past medical history of hypertension, metastatic bladder cancer, brain mets, anemia who presented to the ER from oncology clinic due to hypotension and anemia. He had labs drawn today which revealed a hemoglobin of 6.6 and his blood pressure was 72/40 in their clinic. With fluids his blood pressure improved to 90s over 60s but he still feels very weak and is slightly tachycardic. His only complaint is that he would like his socks off and his door shut so it's not so bright. Subjective/Events-last exam Pt complained of constipation overnight and this AM. was disimpacted by RN last night and suppository placed this AM with resultant BM. Family thinks that took it out of him and he has been kind of in a daze since then. Focused Exam Lactate Level 04/01/22 15:00: Lactic Acid Level 2.14*H 04/01/22 17:58: Lactic Acid Level 2.10*H 04/01/22 20:30: Lactic Acid Level 1.54 Objective Exam Vital Signs Vital Signs Date Time Temp Pulse Resp B/P (MAP) Pulse Ox O2 Delivery O2 Flow Rate FiO2 04/04/22 10:08 Room Air 04/03/22 10:00 73 13 126/61 96 04/03/22 08:25 37.0 Capillary Refill : Less Than 3 Seconds General Appearance: Chronically ill Respiratory: Lungs Clear, No Respiratory Distress Cardiovascular: Regular Rate, Rhythm, No Murmur Neurologic/Psychiatric: Alert, Other (makes eye contact, did not speak) Results/Procedures Lab Patient resulted labs reviewed. 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 GI Bleed Hemorrhagic shock Thrombocytopenia UTI with sepsis Constipation Family and pt elected comfort care only yesterday Transferred out of ICU Comfort care order set placed Bowel regimen ordered palliative care RN consult Critical Care Critically Ill Patient Diagnosis/Problems Diagnosis/Problems (1) Upper GI bleed (2) Hemorrhagic shock (3) Metastatic urothelial carcinoma Status: Acute (4) Urinary tract infection Status: Acute Qualifiers: Urinary tract infection type: site unspecified Hematuria presence: without hematuria Qualified Codes: N39.0 - Urinary tract infection, site not specified (5) Thrombocytopenia Status: Acute (6) Generalized weakness Status: Acute MAGI DEAN MD Apr 04, 2022 12:29
[2022-04-04] MEDS: HYDROmorphone 2 MG/ML VIAL (DILAUDID) IV PRN ×4 (15:54→22:20)
[2022-04-05] MEDS: LORazepam INJ 2 MG/ML (ATIVAN) VIAL IVP PRN ×4 (00:22→06:27)
[2022-04-05] MEDS: HYDROmorphone 2 MG/ML VIAL (DILAUDID) IV PRN ×4 (00:22→06:27)
== END 2022-04-05 14:20 | disposition expired | DRG 377 ==
LOC: EDUNIT# 12:23 → ER 12:25 → ICU 14:08 → 4TH 04-03 13:38
PROVIDERS: ADMIT Family Medicine; ATTEND Family Medicine
DX: K92.2 Gastrointestinal hemorrhage, unspecified (principal); A41.52 Sepsis due to Pseudomonas; N39.0 Urinary tract infection, site not specified; D62 Acute posthemorrhagic anemia; C79.31 Secondary malignant neoplasm of brain; C78.7 Secondary malignant neoplasm of liver and intrahepatic bile duct; C78.02 Secondary malignant neoplasm of left lung; R57.8 Other shock; Z66 Do not resuscitate; Z51.5 Encounter for palliative care; E78.00 Pure hypercholesterolemia, unspecified; I10 Essential (primary) hypertension; K56.41 Fecal impaction; K21.9 Gastro-esophageal reflux disease without esophagitis; D69.6 Thrombocytopenia, unspecified; F17.210 Nicotine dependence, cigarettes, uncomplicated; Z85.51 Personal history of malignant neoplasm of bladder; Z88.5 Allergy status to narcotic agent; Z88.0 Allergy status to penicillin
CPT/HCPCS: 36415; 71045; 80053; 82274; 82947; 83605; 83735; 84100; 84484; 85007; 85014; 85018; 85025; 85027; 85045; 85055; 85379; 85384; 85610; 85730; 86850; 86900; 86901; 86920; 87040; 87081; 93005